=== PATIENT | female | born 1940 | race Caucasian/White ===

== ENCOUNTER 2019-10-28 11:59 | Outpatient (CLI) | payer MEDICARE, BC, SELFPAY ==
--- NOTE | 2019-10-28 12:05 | XR_ITS ---
WS: [id number] Right foot, 3 views, 10/28/2019 Clinical Data: FOOT INJURY RIGHT Comparison: None. Findings: No fractures or dislocations are seen. No bone destruction or erosion is noted. 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 Is calcification adjacent to the medial aspect of the distal first metatarsal. There are also vascular calcification seen adjacent to the distal right tibia. The re are plantar fascial calcifications and a plantar spur seen. XR/XR foot RT min 3V* [id number] Impression: Negative for fracture.
== END 2019-10-28 12:00 | disposition home or self-care (01) ==
LOC: RADWPI 12:04
PROVIDERS: PCP Family Medicine; Visit Provider Family Medicine
DX: S99.921A Unspecified injury of right foot, initial encounter (principal); X58.XXXA Exposure to other specified factors, initial encounter
CPT/HCPCS: 73630

== ENCOUNTER 2019-11-01 15:21 | Emergency (ER) | payer MEDICARE, BC, SELFPAY ==
--- NOTE | 2019-11-01 15:25 | XRR_ITS ---
PROCEDURE INFORMATION: Exam: XR Right Toe(s) Exam date and time: 11/01/2019 3:26 PM Age: 79 years old Clinical indication: Pain; Toes; Right; Additional info: Great toe; Injury TECHNIQUE: Imaging protocol: XR Right toes. Views: Minimum 2 views. COMPARISON: CR XR foot RT min 3V* [id number] 10/28/2019 12:20 PM FINDINGS: Bones/joints: Severe degenerative changes joint and moderate degenerative changes at the 1st tarsal metatarsal joint and 1st interphalangeal joint. Unchanged soft tissue calcifications are noted in the midfoot, adjacent to the 1st MTP joint and 1st interphalangeal joint and may reflect sequela of gout. No dislocation. There is a subtle lucent line in the proximal metaphysis of the 1st proximal phalanx not visualized on the prior exam that may reflect a subtle nondisplaced fracture. This does not extend into the joint. No additional fracture is identified. No osteomyelitis. Soft tissues: There is soft tissue edema of the 1st toe. No foreign body. XR/XR toe RT min 2V [id number] IMPRESSION: There may be a very subtle nondisplaced fracture through the base of the right 1st proximal phalanx. No additional acute bony abnormality.
[2019-11-01 15:50] VITALS: BP 147/86; PULSE 82; RESP 16; TEMP 36.7; O2SAT 96; BMI 31.1
--- NOTE | 2019-11-01 18:04 | W.ED.EXTPRO ---
HPI - Extremity Problem General: Chief complaint: Extremity Injury, Lower Stated complaint: toe injury Time Seen by Provider: 11/01/19 16:14 Source: patient Mode of arrival: ambulatory Limitations: no limitations History of Present Illness: HPI Narrative: 79-year-old female who states she struck her right toe on a door 1 week ago and has had toe pain since then. States pain is the base of her great toe and rates it a 6 out of 10. She states it is worse with walking and improved with rest. Complaint: extremity pain Onset (ago): day(s) Pain Consistency: constant Location: left and right Associated symptoms: Deny chest pain, fever(s) or rash Review of Systems Const: Denies: fever(s), chills, body aches or change in appetite Eyes: Denies: blurry vision or eye discomfort ENMT: Denies: throat pain or dental pain Card: Denies: chest pain Resp: Denies: dyspnea GI: Denies: abdominal pain, nausea, vomiting or diarrhea : Denies: dysuria Musc: Reports: joint pain Skin/Breast: Denies: rash Neuro: Denies: headache(s) Psych: Denies: depression Emmanuel/Lymph: Denies: easy bruising All/Imm: Denies: urticaria PFSH ED PFSH: Medical History GERD (gastroesophageal reflux disease) Hypertension Type 2 diabetes mellitus Family History Other Heart disease Myocardial infarction Social History Smoking and tobacco status: never smoked Alcohol intake: current Alcohol intake frequency: holidays/special occasions only Physical Exam Const: COMMON NORMALS: no acute distress, patient oriented x3 and healthy appearing HENMT: COMMON NORMALS: normocephalic and atraumatic HEAD & SCALP: normocephalic and atraumatic Eye: COMMON NORMALS: Equal, round and reactive pupils present and EOMs intact bilaterally PUPIL: Yes Equal, round and reactive pupils present Neck/C-Spine: COMMON NORMALS: full ROM and supple Chest: COMMONS NORMALS: normal inspection of the chest and normal palpation of entire chest wall Resp: COMMON NORMALS: normal respiratory effort, No retractions, No use of accessory muscles and clear to auscultation bilaterally AUSCULTATION: clear to auscultation bilaterally Cardio: COMMON NORMALS: regular rate, regular rhythm and No murmurs present (Cardio) RATE: regular rate RHYTHM: regular rhythm GI: COMMON NORMALS: Normal to inspection, nondistended, normoactive bowel sounds present, Soft to palpation, non-tender and no masses PALPATION: Yes Soft to palpation Extremity: COMMON NORMALS: normal to inspection and full ROM NARRATIVE EXTREMITY EXAM: tender over right great toe Neuro: COMMON NORMALS: patient oriented x3, moves all extremities and no focal motor deficits Psych: COMMON NORMALS: mental status grossly normal, Normal thought process present and cooperative THOUGHT PROCESS: Normal thought process present Skin: COMMON NORMALS: no rashes or lesions noted and no wounds GENERAL SKIN EXAM: no rashes or lesions noted Course Vital Signs: Vital signs: Vital Signs Temperature 98.0 F 11/01/19 15:50 Pulse Rate 82 11/01/19 15:50 Respiratory Rate 16 11/01/19 15:50 Blood Pressure 147/86 11/01/19 15:50 Pulse Oximetry 96 11/01/19 15:50 MDM - Extremity (Nontraumatic) MDM Narrative: Medical decision making narrative: Patient presents here with great toe contusion. Patient's x-ray shows no fracture. She is well-appearing here and is stable for discharge. She is to ice and follow-up with primary care doctor in 3 to 5 days. Imaging Data^: xr right foot: Attestation: I personally reviewed and interpreted this imaging study as follows: My impression: no acute abnormalty Discharge Plan Discharge Patient Disposition: Home, Self-Care Clinical Impression: Contusion of toe of right foot Qualifiers: Encounter type: initial encounter Toe: great toe Damage to nail status: without damage Qualified Code(s): S90.111A - Contusion of right great toe without damage to nail, initial encounter Condition: Stable Prescriptions: No Action metoprolol succinate 50 mg tablet extended release 24 hr 50 mg PO DAILY RF: 0 metformin 500 mg tablet 500 mg PO BID RF: 0 omeprazole 20 mg capsule,delayed release(DR/EC) 20 mg PO DAILY RF: 0 hydrochlorothiazide 25 mg tablet 25 mg PO DAILY RF: 0 zolpidem 10 mg tablet PO RF: 0 diclofenac sodium [Voltaren] 1 % gel 2 gm TOPICAL BID Qty: 100 RF: 2 Discharge Orders: Discharge Order (Routine); Ordered 11/01/19 Ordered By: Thea Cason Referrals: Bala Sen DO [Primary Care Provider] - Discharge Diet: Advance as tolerated Discharge Activity: Resume usual activity Patient Instructions: Foot Contusion (ED) Coding Level of Care Code ED [place] Management Professor for Tammyg Fwd Exam Comprehensive
[2019-11-01] MEDS: HYDROcodone-acetaminophen 5-325 mg Tablet 1 TAB PO (18:24)
[2019-11-01 18:27] VITALS: BP 166/98; PULSE 80; RESP 18; O2SAT 95
== END 2019-11-01 18:27 | disposition home or self-care (01) ==
PROVIDERS: Emergency Provider Emergency Medicine; PCP Family Medicine
DX: S90.111A Contusion of right great toe without damage to nail, initial encounter (principal); W22.09XA Striking against other stationary object, initial encounter; I10 Essential (primary) hypertension; E11.9 Type 2 diabetes mellitus without complications
CPT/HCPCS: 12345; 73660; 99281; 99283

== ENCOUNTER → 2019-11-12 08:26 | Outpatient (BNVA) | payer MEDICARE, BC, SELFPAY | PROVIDERS: PCP Family Medicine; Referring Provider Family Medicine; Visit Provider Podiatrist Foot & Ankle Surgery | DX: M79.672 Pain in left foot (principal); M77.32 Calcaneal spur, left foot | CPT/HCPCS: 73630 ==

== ENCOUNTER 2020-01-31 07:22 | Outpatient (CLI) | payer MEDICARE, BC, SELFPAY ==
--- NOTE | 2020-01-31 07:32 | NMCV_ITS ---
NM gregor perf SPECT r/s* [id number] Lindsey Pinto Age: 79 Gender: F : 1940 Exam Date: 01/31/2020 08:44 Ordering Phys: Nina Franco MD ([email or web address]) Technologist: ROSETTE Carter Exam Location: [facility] Indications: Dyspnea on exertion STRESS TEST Please see separate stress test report in [facility] for full findings IMAGE PROTOCOL Rest/Stress 1 Lexiscan Day Radiopharmaceutical Dose (mCi) Administration Site Administered by Rest: Tc-99m 10.3 IV ROSETTE Call Sestamibi Stress:Tc-99m 32.5 IV ROSETTE Carter Sestamibi Rest: 31-Jan-2020 60 Discovery 630 Stress: 31-Jan-2020 45 Discovery 630 0.4mg Lexiscan. Images obtained in supine and prone position. SPECT RESULTS Technical Quality: Good Raw Data Analysis: Breast attenuation Image Corrections: No attenuation or motion correction applied Summed Stress Score: 0 Summed Rest Score: 1 Summed Difference Score: 0 PERFUSION FINDINGS SPECT images demonstrate homogeneous tracer distribution throughout the myocardium. FUNCTIONAL RESULTS (calculated via Gated SPECT) Stress Image LV EF (%): 56 Stress EDV (mL):55 TID: 1.09 Stress ESV (mL):24 FUNCTIONAL FINDINGS: The left ventricle is normal in size. Transient Ischemia Dilatation of 1.1. There is normal left ventricular systolic function. The left ventricular ejection fraction is normal with a value of 56%. There is normal left ventricular wall thickening. Normal end diastolic and end systolic volumes. IMPRESSIONS 1. Myocardial perfusion imaging is normal. 2. Overall left ventricular systolic function is normal without regional wall motion abnormalities. 3. The left ventricular ejection fraction is normal with a value of 56%. 4. Scan indicates low risk for cardiac events. Nina Franco MD (Electronically Signed) Final Date: 31 January 2020 21:33 S
--- NOTE | 2020-01-31 07:32 | ECG_ITS ---
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 Interpretive Statements NAME OF STUDY: LEXISCAN SESTAMIBI STRESS TEST INDICATION: BATES PROCEDURE: At the baseline, the blood pressure was 155/99 mm Hg with a heart rate of 62 bpm. The electrocardiogram showed sinus rhythm, normal axis with nonspecific T wave inversion in lead III. The Lexiscan was infused over a period of 20 seconds. A total of 0.4 milligrams of Lexiscan was infused. The stress phase was continued for a total of 5 minutes. Heart rate at the end of the stress phase was 84 bpm with a blood pressure 155/99 mmHg. The EKG at the peak infusion revealed no significant ST-T wave changes. The study was terminated due to protocol completion. Sestamibi was injected 20 seconds after the Lexiscan infusion. Blood pressure at the end of the recovery phase was 152/99 mmHg with a heart rate of 78 beats per minute. CONCLUSION: 1. No significant EKG changes with the LexiScan infusion. 2. No LexiScan induced chest pain or cardiac arrhythmia. 3. Normal blood pressure and heart rate response. 4. Sestamibi/sestamibi perfusion scan pending; see separate report. Electronically Signed On 02-03-2020 12:45:12 CDT by Nina Franco M.D. [id number]
[2020-01-31 07:48] VITALS: BMI 31.4
[2020-01-31] MEDS: regadenoson 0.4 Mg/5 ml Syringe IVP (10:04)
[2020-01-31 10:06] VITALS: BP 152/99; PULSE 78
== END 2020-01-31 07:23 | disposition home or self-care (01) ==
LOC: RAD 07:25
PROVIDERS: PCP Family Medicine; Visit Provider Internal Medicine Cardiovascular Disease
DX: R06.09 Other forms of dyspnea (principal); E11.9 Type 2 diabetes mellitus without complications
CPT/HCPCS: 78452; 93017; A9500; J2785

== ENCOUNTER → 2020-07-22 08:06 | Outpatient (BNVA) | payer MEDICARE, BC, SELFPAY | PROVIDERS: PCP Family Medicine; Visit Provider Specialist | DX: M19.041 Primary osteoarthritis, right hand (principal); M79.641 Pain in right hand | CPT/HCPCS: 73130 ==

== ENCOUNTER 2020-07-22 11:07 | Outpatient (CLI) | payer MEDICARE, BC, SELFPAY | END 2020-07-22 11:08 | disposition home or self-care (01) | LOC: SPT 11:07 | PROVIDERS: PCP Family Medicine; Visit Provider Specialist | DX: Z46.89 Encounter for fitting and adjustment of other specified devices (principal); M19.041 Primary osteoarthritis, right hand | CPT/HCPCS: 97760; L3908 ==

== ENCOUNTER 2020-09-30 09:40 | Inpatient (IN) | payer MEDICARE, BC, SELFPAY ==
[2020-09-30] VITALS (18 sets, daily range): BP systolic 133–218; BP diastolic 87–119; PULSE 62–73; RESP 12–27; TEMP 36.4–36.8; O2SAT 93–99; BMI 32.0
--- NOTE | 2020-09-30 10:26 | ECG_ITS ---
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 f
--- NOTE | 2020-09-30 10:26 | XR_ITS ---
WS: [id number] Portable AP upright chest, 09/30/2020 Clinical Data: cp Comparison: Portable chest, 10/21/2012. Findings: No nodules, masses or effusions are seen. The heart is normal. The pulmonary vascularity is not increased. No pneumonia or pneumothorax is seen. The aortic arch and descending aorta show tortu osity. XR/XR chest 1V portable [id number] Impression: Atherosclerosis.
[2020-09-30] MEDS: aspirin 81 mg Chew Tablet 324 MG PO (11:01)
[2020-09-30] MEDS: nitroglycerin 0.4 mg sublingual Tablet SUBLINGUAL (11:01)
[2020-09-30 11:05] LABS: Basophils % 0.4 %; Eosinophils # 0.1 10^3/uL (0.0-0.8); Eosinophils % 1.3 %; Hematocrit 43.5 % (37.0-47.0); Hemoglobin 14.9 g/dL (11.5-15.3); Lymphocytes # 2.5 10^3/uL (0.8-4.8); Lymphocytes % 26.7 %; Mean Corpuscular HGB Conc 34.3 g/dL (30.0-36.0); Mean Corpuscular Hemoglobin 32.1 pg (28.0-34.0); Mean Corpuscular Volume 93.8 fL (81-99); Mean Platelet Volume 10.7 fL (7.4-10.4); Monocytes # 0.8 10^3/uL (0.2-0.9); Monocytes % 8.3 %; Neutrophils # 5.83 10^3/uL (1.8-7.7); Nucleated Red Blood Cells % 0 %; Platelet Count 247 10^3/cmm (130-400); Red Blood Count 4.64 10^6/uL (4.1-5.3); Red Cell Distribution Width 12.8 % (12.1-15.1); White Blood Count 9.3 10^3/uL (4.0-10.0)
[2020-09-30 11:24] LABS: Troponin(5th) Baseline 9 ng/L (0-10)
[2020-09-30 11:32] LABS: Alanine Aminotransferase 61 U/L (0-33); Albumin Level 4.8 g/dL (3.5-5.2); Alkaline Phosphatase 34 IU/L (35-105); Anion Gap 20.4 (5-19); Aspartate Amino Transferase 46 U/L (0-32); Blood Urea Nitrogen 15 mg/dL (8-23); Calcium 9.4 mg/dL (8.5-10.5); Carbon Dioxide 23 mmol/L (22-29); Chloride 95 mmol/L (98-107); Globulin 3.3 g/dL (1.3-4.6); Glucose 146 mg/dL (65-115); NT Pro B Type Natriuretic Pept 161 pg/mL (0-450); Osmolality Calculated 281 mOsm/kg (285-295); Potassium 4.4 mmol/L (3.5-5.1); Sodium 134 mmol/L (136-145); Total Bilirubin 0.4 mg/dL (0.15-1.2); Total Protein 8.1 g/dL (6.6-8.7)
[2020-09-30 11:35] LABS: Creatinine Clr Calc Pharmacy 55.6412
[2020-09-30 12:24] LABS: D Dimer 0.64 ug/mIFEU (0-0.59)
--- NOTE | 2020-09-30 12:26 | ECG_ITS ---
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1940 Requested By: Shekhar Mancilla Order Number: [id number] Braulio MD: TIANNA BHAKTA Measurements Intervals [place] Rate: 65 P: 37 MN: 216 QRS: -14 QRSD: 98 T: 38 QT: 422 QTc: 439 Interpretive Statements SINUS RHYTHM WITH FIRST DEGREE AV BLOCK INCOMPLETE RIGHT BUNDLE BRANCH BLOCK [90+ ms QRS DURATION, TERMINAL R IN V1/V2, 40+ ms S IN I/aVL/V4/V5/V6] Compared to ECG 01/14/2019 12:20:08 First degree AV block now present Incomplete right bundle-branch block now present Electronically Signed On 09-30-2020 19:24:08 CDT by TIANNA BHAKTA [id number]
--- NOTE | 2020-09-30 12:49 | CT_ITS ---
WS: [id number] CTA scan of the chest with IV contrast. Additional two-dimensional coronal and sagittal reconstructio n and MIP images was performed. 09/30/2020 Clinical Data: cp Comparison: CT chest, 05/07/2019. DLP: 471.[address] scans at [facility] use at least one of these dose optimization techniques: automat ed exposure control; mA and/or kV adjustment per patient size (includes targeted exams where dose is matched to clinical indication); or iterative reconstruction. Findings: The central pulmonary arteries and peripheral pulmonary arteries fill normally with no evidence of in traluminal filling defects. No pulmonary embolic disease is noted. There is a superior segment left lower lobe nodule measuring 1.1 cm seen best on axial image 22 of 52 unchanged. There are other small benign nodules also unchanged. The heart size is normal with no per icardial effusion. There is coronary artery calcification. The pulmonary arterial system and thoracic aorta demonstrate no abnormalities or dilatations. No pneumonia or pneumothorax is seen. There is no axillary or significant mediastinal adenopathy. The thyroid gland shows normal enhancement. The trac hea bifurcates into the bronchi. There is a small hiatal hernia. The upper abdomen shows no abnormalities. The visualized liver, spleen, pancreas, gallbladder, adrena l glands and superior poles of the kidneys are not remarkable. The bones of the thoracic and upper lumbar spine demonstrate osteoarthritis of the vertebral bodies.. CT/CT angio chest PE protcl [id number] Impression: 1. Negative for pulmonary embolic disease. 2. No change in 1.1 cm left lower lobe nodule.
[2020-09-30 12:51] LABS: Add Urine Microscopic? NO; Charge for UA Resulting for Rev
[2020-09-30 13:10] LABS: Urine Appearance Clear (CLEAR); Urine Color Yellow (Yellow)
[2020-09-30 13:13] LABS: Bilirubin Urine Neg (Negative); Blood Urine Neg (Negative); Glucose Urine UA Norm (Normal); Ketones Urine Negative (Negative); Leukocyte Esterase Urine Negative (Negative); Nitrate Urine Negative (Negative); Protein Urine Neg (Negative); Urobilinogen Urine Norm (Negative); pH Urine 6 (5-7)
[2020-09-30] MEDS: iohexol 350 mg/mL 100 mL Btl IV (13:15)
[2020-09-30 13:46] LABS: Troponin 5 2HR 9.55 ng/L (0-10); Troponin 5 2HR Delta 0.55 ABS# (0-10)
--- NOTE | 2020-09-30 13:46 | PC.PHAR ---
pt states she takes care of her own medications-pt states she had a proair inhaler but it has and she hasnt used in a while-pt states she uses voltaren gel prn-pt states her daughter brought her some from [place] but states it doesnt work-pt states she was on metoprolol er 50mg daily (ext med history shows last filled on 06/23/20 90d/s) but states it was increased to 100mg daily-ext med history shows last filled on 07/27/20 30d/s-
[2020-09-30] MEDS: morphine 4 mg/mL SDV 1 mL 2 MG IVP (14:51)
[2020-09-30] MEDS: cloNIDine 0.1 mg Tablet 0.2 MG PO (15:55)
--- NOTE | 2020-09-30 16:06 | ED_ITS ---
HPI - Chest Pain General: Chief Complaint: Chest Pain Stated Complaint: CP Time Seen by Provider: 09/30/20 10:49 History of Present Illness: HPI narrative: The patient is a 80-year-old female with past medical history hypertension, type 2 diabetes who comes to the ER complaining of left-sided chest pain. She has not had this before but says its left and radiates across her chest to the right and around back. She has a family history of cardiac deaths. She says it is worse when she is doing activities but is also hurts whenever she is still. complaint: chest pain Timing of current episode: constant Prior episodes: No Onset: during rest and during exertion Pain location: left chest Severity: moderate Quality: sharp Relieving factors: nothing Associated symptoms: Reports no associated symptoms; Deny abdominal pain, dyspnea or palpitations Review of Systems General: Reports: 10 or more systems reviewed and unremarkable except in HPI and below Const: Denies: fatigue Eyes: Denies: change in vision, blurry vision or eye redness ENMT: Denies: throat pain, swelling of lips/tongue, ear or mastoid pain or nasal congestion Card: Reports: chest pain; Denies: palpitations, irregular heart rhythm, edema, dyspnea on exertion or orthopnea Resp: Denies: dyspnea, productive cough or non-productive cough GI: Denies: abdominal pain, diarrhea or GI cramping : Denies: flank pain, difficulty voiding, urinary frequency or urinary urgency Musc: Denies: neck pain, back pain, extremity pain, joint pain, joint redness, limited range of motion or muscle weakness Skin/Breast: Denies: rash, pruritus, erythema, skin pain or skin tenderness Neuro: Denies: headache(s), numbness in extremities, weakness in extremities, sensory changes, difficulty walking, dizziness, confusion or Slurred speech present Psych: Denies: anxiety or depression Endo: Denies: polyuria All/Imm: Denies: urticaria, throat swelling or tongue swelling PFSH ED PFSH: Medical History (Updated 09/30/20 @ 16:09 by Shekhar Mancilla MD) GERD (gastroesophageal reflux disease) Hypertension Type 2 diabetes mellitus Family History Other Heart disease Myocardial infarction Social History Smoking and tobacco status: never smoked Alcohol intake: current Alcohol intake frequency: holidays/special occasions only Physical Exam Const: COMMON NORMALS: no acute distress, average body habitus, patient oriented x3, no limitations, healthy appearing, alert and well nourished GENERAL APPEARANCE: cooperative, comfortable, well kempt and well developed ORIENTATION/CONSCIOUSNESS: Yes awake, Yes oriented to person, Yes oriented to place and Yes oriented to time HENMT: COMMON NORMALS: normocephalic, external ears normal and Normal external nose present HEAD & SCALP: normal to inspection and normocephalic NOSE: Normal external nose present EXTERNAL EAR: Yes external ears normal MOUTH: Normal oral and palatal mucosa present THROAT: posterior oropharynx normal Eye: COMMON NORMALS: Equal, round and reactive pupils present and EOMs intact bilaterally GENERAL EYE: appearance normal, both eyes and all related structures PUPIL: Yes Equal, round and reactive pupils present Neck/C-Spine: COMMON NORMALS: full ROM, no lymphadenopathy, no meningeal signs and no JVD GENERAL: Yes normal visual inspection Lymph: LYMPHATIC: no lymphadenopathy noted Chest: COMMONS NORMALS: normal inspection of the chest and normal palpation of entire chest wall Resp: COMMON NORMALS: normal respiratory effort, No retractions, No use of accessory muscles, clear to auscultation bilaterally and percussion normal EFFORT & INSPECTION: Yes able to speak in complete sentences AUSCULTATION: clear to auscultation bilaterally PERCUSSION: percussion normal Cardio: COMMON NORMALS: no JVD, regular rate, regular rhythm, S1 normal heart sound present, S2 normal heart sound present and Peripheral pulses 2+ throughout RATE: regular rate RHYTHM: regular rhythm HEART SOUNDS: S1 normal heart sound present and S2 normal heart sound present PERIPHERAL PULSES: Peripheral pulses 2+ throughout GI: COMMON NORMALS: Normal to inspection, nondistended, normoactive bowel sounds present, Soft to palpation, non-tender and no masses INSPECTION: Yes normal to inspection PALPATION: Yes Soft to palpation : COMMON NORMALS: Yes no CVA tenderness BLADDER/KIDNEY EXAM: Yes no CVA tenderness Back/Pelvis: COMMON NORMALS: no CVA tenderness, thoracic and lumbar spine normal to inspection, no thoracic nor lumbar tenderness and thoraco-lumbar ROM normal Extremity: COMMON NORMALS: normal to inspection, full ROM, capillary refill normal, no joint enlargement and no pedal edema GENERAL: Yes normal exam except as noted Neuro: COMMON NORMALS: patient oriented x3, CN's II-XII intact bilaterally, moves all extremities, no focal motor deficits, no sensory deficits noted and gait normal SENSORIUM/ORIENTATION: Yes alert, Yes oriented to person, Yes oriented to place and Yes oriented to time MENINGEAL SIGNS: Yes no meningeal signs Psych: COMMON NORMALS: mental status grossly normal, Normal thought process present, cooperative, normal affect and speech normal APPEARANCE: Yes well kempt ATTITUDE: Yes calm SPEECH: Yes normal speech MOOD & AFFECT: Yes anxious THOUGHT PROCESS: Normal thought process present Skin: COMMON NORMALS: no rashes or lesions noted GENERAL SKIN EXAM: no rashes or lesions noted Course Vital Signs: Vital signs: Vital Signs Temperature 97.5 F L 09/30/20 10:27 Pulse Rate 69 09/30/20 14:58 Respiratory Rate 20 H 09/30/20 14:58 Blood Pressure 192/101 09/30/20 15:55 Pulse Oximetry 96 09/30/20 14:58 MDM - Chest Pain MDM Narrative: Medical decision making narrative: Patient came to the ER complaining of left-sided chest pain. It was not relieved by nitroglycerin. She had normal EKG and troponin x2 however no interventions relieved her chest pain. Moderate suspicion of cardiac disease. Discussed with Dr. Jaimes who will keep observation. Lab Data: Labs: Lab Results 09/30/20 09/30/20 09/30/20 Range/Units 10:56 10:56 10:56 WBC 9.3 (4.0-10.0) 10^3/ uL RBC 4.64 (4.1-5.3) 10^6/u L Hgb 14.9 (11.5-15.3) g/dL Hct 43.5 (37.0-47.0) % MCV 93.8 (81-99) fL MCH 32.1 (28.0-34.0) pg MCHC 34.3 (30.0-36.0) g/dL RDW 12.8 (12.1-15.1) % Plt Count 247 (130-400) 10^3/c mm MPV 10.7 H (7.4-10.4) fL Neut % (Auto) 63.0 % Lymph % (Auto) 26.7 % [place] % (Auto) 8.3 % Eos % (Auto) 1.3 % Baso % (Auto) 0.4 % Neut # (Auto) 5.83 (1.8-7.7) 10^3/u L Lymph # (Auto) 2.5 (0.8-4.8) 10^3/u L [place] # (Auto) 0.8 (0.2-0.9) 10^3/u L Eos # (Auto) 0.1 (0.0-0.8) 10^3/u L Baso # (Auto) 0.0 (0.0-0.1) 10^3/u L Nucleated RBC % (a uto) 0 % Nucleated RBCs # 0.0 /100WBC D-Dimer (0-0.59) ug/mIFE U Sodium 134 L (136-145) mmol/L Potassium 4.4 (3.5-5.1) mmol/L Chloride 95 L (98-107) mmol/L Carbon Dioxide 23 (22-29) mmol/L Anion Gap 20.4 H (5-19) BUN 15 (8-23) mg/dL Creatinine 0.4 L (0.5-0.9) mg/dL GFR Calculation Not Reportable Glucose 146 H (65-115) mg/dL Calculated Osmolal ity 281 L (285-295) mOsm/k g Calcium 9.4 (8.5-10.5) mg/dL Total Bilirubin 0.4 (0.15-1.2) mg/dL AST 46 H (0-32) U/L ALT 61 H (0-33) U/L Alkaline Phosphata se 34 L (35-105) IU/L Troponin T Baselin e 9 (0-10) ng/L Troponin T 120 Min andrew (0-10) ng/L Delta Troponin T (0-10) ABS# NT-Pro-B Natriuret Pep 161 (0-450) pg/mL Total Protein 8.1 (6.6-8.7) g/dL Albumin 4.8 (3.5-5.2) g/dL Globulin 3.3 (1.3-4.6) g/dL Urine Color (Yellow) Urine Appearance (CLEAR) Urine pH (5-7) Ur Specific Gravit y (1.005-1.030) Urine Protein (Negative) Urine Glucose (UA) (Normal) Urine Ketones (Negative) Urine Blood (Negative) Urine Nitrate (Negative) Urine Bilirubin (Negative) Urine Urobilinogen (Negative) mg/dL Ur Leukocyte [place] ase (Negative) 09/30/20 09/30/20 09/30/20 Range/Units 11:47 12:17 12:58 WBC (4.0-10.0) 10^3/ uL RBC (4.1-5.3) 10^6/u L Hgb (11.5-15.3) g/dL Hct (37.0-47.0) % MCV (81-99) fL MCH (28.0-34.0) pg MCHC (30.0-36.0) g/dL RDW (12.1-15.1) % Plt Count (130-400) 10^3/c mm MPV (7.4-10.4) fL Neut % (Auto) % Lymph % (Auto) % [place] % (Auto) % Eos % (Auto) % Baso % (Auto) % Neut # (Auto) (1.8-7.7) 10^3/u L Lymph # (Auto) (0.8-4.8) 10^3/u L [place] # (Auto) (0.2-0.9) 10^3/u L Eos # (Auto) (0.0-0.8) 10^3/u L Baso # (Auto) (0.0-0.1) 10^3/u L Nucleated RBC % (a uto) % Nucleated RBCs # /100WBC D-Dimer 0.64 H (0-0.59) ug/mIFE U Sodium (136-145) mmol/L Potassium (3.5-5.1) mmol/L Chloride (98-107) mmol/L Carbon Dioxide (22-29) mmol/L Anion Gap (5-19) BUN (8-23) mg/dL Creatinine (0.5-0.9) mg/dL GFR Calculation Glucose (65-115) mg/dL Calculated Osmolal ity (285-295) mOsm/k g Calcium (8.5-10.5) mg/dL Total Bilirubin (0.15-1.2) mg/dL AST (0-32) U/L ALT (0-33) U/L Alkaline Phosphata se (35-105) IU/L Troponin T Baselin e (0-10) ng/L Troponin T 120 Min andrew 9.55 (0-10) ng/L Delta Troponin T 0.55 (0-10) ABS# NT-Pro-B Natriuret Pep (0-450) pg/mL Total Protein (6.6-8.7) g/dL Albumin (3.5-5.2) g/dL Globulin (1.3-4.6) g/dL Urine Color Yellow (Yellow) Urine Appearance Clear (CLEAR) Urine pH 6 (5-7) Ur Specific Gravit y 1.010 (1.005-1.030) Urine Protein Neg (Negative) Urine Glucose (UA) Norm (Normal) Urine Ketones Negative (Negative) Urine Blood Neg (Negative) Urine Nitrate Negative (Negative) Urine Bilirubin Neg (Negative) Urine Urobilinogen Norm (Negative) mg/dL Ur Leukocyte [place] ase Negative (Negative) Discharge Plan Discharge Patient Disposition: Placed in Observation Clinical Impression: Chest pain Coding Level of Care Code ED Chief Meteorologist for Karl Mario
[2020-09-30 16:08] LABS: Hepatitis A Antibody IgM Non-Reactive (Nonreactive); Hepatitis B Core IgM Non-Reactive (Nonreactive); Hepatitis B Surface Antigen Non-Reactive (Nonreactive); Hepatitis C Virus Antibody Non-Reactive (Nonreactive)
--- NOTE | 2020-09-30 16:26 | ECG_ITS ---
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1940 Requested By: Shekhar Mancilla Order Number: [id number] Reading MD: TIANNA BHAKTA Measurements Intervals [place] Rate: 69 P: 24 OR: 207 QRS: -21 QRSD: 94 T: 19 QT: 415 QTc: 446 Interpretive Statements SINUS RHYTHM BORDERLINE LEFT AXIS DEVIATION [QRS AXIS < -20] INCOMPLETE RIGHT BUNDLE BRANCH BLOCK [90+ ms QRS DURATION, TERMINAL R IN V1/V2, 40+ ms S IN I/aVL/V4/V5/V6] Compared to ECG 09/30/2020 12:47:21 First degree AV block no longer present Electronically Signed On 09-30-2020 19:23:46 CDT by TIANNA BHAKTA [id number]
--- NOTE | 2020-09-30 17:13 | PM.HP ---
Providers/Chief Complaint Admitting Physician: Nestor Berumen MD Primary Care Provider: Bala Sen DO Chief Complaint: CP History of Present Illness Lindsey Pinto is a 80 year old female with a past medical history of noninsulin-dependent type 2 diabetes mellitus, hypertension, GERD, chronic sinusitis, who presents to [facility] due to complaints of chest pain. Patient tells me that at 3 AM this morning she woke up with severe substernal chest pain, across the anterior chest, sharp-like pain, no nausea, no vomiting, some lightheadedness, some shortness of breath, the pain persisted throughout the morning, intensified in strength so she decided to come to the emergency room, here in the emergency room she reported chest pain, was given aspirin, nitro, morphine, Tylenol without improvement, her initial troponins are within normal limits, EKG shows no acute ST-T wave changes, she does have a significant family history of CAD, hospitalist team was called for admission. Review of Systems Const: Denies: fever(s), chills, fatigue or malaise Eyes: Denies: change in vision or blurry vision ENMT: Denies: nasal congestion Card: Reports: chest pain Resp: Reports: dyspnea; Denies: productive cough, non-productive cough or wheezing GI: Denies: abdominal pain, nausea, vomiting, hematemesis, diarrhea, constipation, hematochezia or melena : Denies: flank pain, dysuria or urinary frequency Musc: Denies: neck pain or back pain Skin/Breast: Denies: rash Neuro: Denies: headache(s), dizziness or vertigo Psych: Denies: anxiety or depression Endo: Denies: polyuria or polydipsia Medications/Allergies Home Medications Medication Instructions Recorded Confirmed Last Taken Type hydrochlorothiazide 25 mg tablet 25 mg PO DAILY@08/01/19 09/30/20 09/30/20 History metformin 500 mg tablet 1,000 mg PO DAILY@08/01/19 09/30/20 09/30/20 07:00 History omeprazole 20 mg capsule,delayed 20 mg PO DAILY PRN 08/01/19 09/30/20 Unknown History release zolpidem 10 mg tablet 10 mg PO BEDTIME 08/01/19 09/30/20 09/29/20 History allopurinol 100 mg tablet 100 mg PO DAILY@07 12/04/19 09/30/20 09/30/20 07:00 History COCK UP SPLINT #1 ea NS 07/22/20 09/30/20 Unknown Rx Voltaren 2 gm TOPICAL QID PRN 09/30/20 09/30/20 Unknown History acetaminophen [Tylenol Extra 1,000 mg PO PRN 09/30/20 09/30/20 09/30/20 07:00 History Strength] 1000 mg alum-mag hydroxide-simeth [Mylanta] See Rx Instructions .ROUTE .COMPLEX 09/30/20 09/30/20 09/30/20 History loratadine [Allergy Relief 10 mg PO DAILY PRN 09/30/20 09/30/20 Unknown History (loratadine)] metoprolol succinate 100 mg PO DAILY@09/30/20 09/30/20 09/30/20 History Allergies Allergy/AdvReac Type Severity Reaction Status Date / Time poliomyelitis vaccine,killed Allergy Unknown Verified 07/22/20 08:09 PFSH Acute PFSH: Medical History GERD (gastroesophageal reflux disease) Hypertension Type 2 diabetes mellitus Surgical History H/O sinus surgery H/O varicose vein stripping Family History Father CAD (coronary artery disease) Mother CAD (coronary artery disease) Other Heart disease Myocardial infarction Social History Smoking and tobacco status: never smoked Alcohol intake: current Alcohol intake frequency: holidays/special occasions only Vitals/I&O/Wt Last Vital Signs Temp 97.5 F L 09/30/20 10:27 Pulse 70 09/30/20 16:15 Resp 12 09/30/20 16:15 BP 183/110 09/30/20 16:15 Pulse Ox 98 09/30/20 16:15 Weight last 48 hrs Weight 79.379 kg Physical Exam Const: COMMON NORMALS: no acute distress and patient oriented x3 GENERAL APPEARANCE: cooperative and comfortable HENMT: COMMON NORMALS: normocephalic HEAD & SCALP: normocephalic Eye: COMMON NORMALS: Equal, round and reactive pupils present and EOMs intact bilaterally GENERAL EYE: appearance normal, both eyes and all related structures PUPIL: Yes Equal, round and reactive pupils present Neck/C-Spine: COMMON NORMALS: full ROM, no lymphadenopathy, no JVD and Thyroid normal THYROID: Thyroid normal Lymph: LYMPHATIC: no lymphadenopathy noted Resp: COMMON NORMALS: normal respiratory effort, No retractions, No use of accessory muscles and clear to auscultation bilaterally AUSCULTATION: clear to auscultation bilaterally Cardio: COMMON NORMALS: no JVD, regular rate, regular rhythm, S1 normal heart sound present, S2 normal heart sound present, No gallops present (Cardio), No clicks present (Cardio) and No murmurs present (Cardio) RATE: regular rate RHYTHM: regular rhythm HEART SOUNDS: S1 normal heart sound present and S2 normal heart sound present GI: COMMON NORMALS: Normal to inspection, nondistended, normoactive bowel sounds present, Soft to palpation, non-tender and No hepatosplenomegaly present PALPATION: Yes Soft to palpation and Yes No hepatosplenomegaly present Extremity: COMMON NORMALS: normal to inspection, full ROM and no pedal edema Neuro: COMMON NORMALS: patient oriented x3, CN's II-XII intact bilaterally, moves all extremities and no focal motor deficits Psych: COMMON NORMALS: mental status grossly normal, Normal thought process present and cooperative THOUGHT PROCESS: Normal thought process present Data : 09/30/20 10:56 09/30/20 10:56 A&P Assessment and plan (1) Chest pain: -Risk factors include family history, hypertension, diabetes -Baseline troponin 9, 121 at 9.55, delta 0.55, BNP 161 -EKG shows sinus rhythm first-degree AV block -Stress test in 01/30/2020 low risk of cardiac events -CT angiogram negative for pulmonary emboli Plan: -Admit to [facility] -Serial troponins, serial EKGs, telemetry monitoring -Aspirin, statin, beta-elizabeth -Nitro for as needed chest pain, she continues to have chest pain will consider starting a nitro drip -GI cocktail -Morphine -ESR, CRP, cardiac echo -Cardiac diet -Low-dose sliding scale -A1c, lipid panel -Cardiology has been consulted -Lovenox for DVT prophylaxis -DNR/DNI Status: Acute (2) Hypertension: Status: Acute (3) Type 2 diabetes mellitus: Status: Acute Qualifiers: Diabetes mellitus nursing home insulin use: without intermission coordinator use Diabetes mellitus complication status: without complication Qualified Code(s): E11.9 - Type 2 diabetes mellitus without complications (4) GERD (gastroesophageal reflux disease): Status: Acute Qualifiers: Esophagitis presence: esophagitis presence not specified Qualified Code(s): K21.9 - Gastro-esophageal reflux disease without esophagitis Attestations Medical Necessity Statement*: Patient requires hospitalization, outpatient with observation, for chest pain Coding Level of Care Code Acute [employer] for [facility] Fwd Diagnoses Chest pain R07.9 Hypertension I10 Type 2 diabetes mellitus E11.9 Diabetes mellitus nursing home insulin use: without intermission coordinator use Diabetes mellitus complication status: without complication GERD (gastroesophageal reflux disease) K21.9 Esophagitis presence: esophagitis presence not specified
[2020-09-30 17:27] LABS: Glucose Point of Care 183 mg/dL (70-110)
[2020-09-30] MEDS: lidocaine 2% viscous 15 ML, aluminum-mag hydrox-simethicon 30 ML, sucralfate oral liq 1 GM PO (18:02)
[2020-09-30] MEDS: enoxaparin 40 mg/0.4 mL Syringe SUBCUT (18:03)
[2020-09-30] MEDS: pantoprazole DR 40 mg Tablet PO (18:03)
[2020-09-30 18:20] LABS: NT Pro B Type Natriuretic Pept 163 pg/mL (0-450)
[2020-09-30 18:22] LABS: Troponin 5 6HR 12.47 ng/L (0-10); Troponin 5 6HR Delta 3.47 ng/L (0-12)
[2020-09-30 18:35] LABS: Erythrocyte Sedimentation Rate 22 mm/hr (0-15)
--- NOTE | 2020-09-30 18:50 | P.CONIM_ITS ---
Providers/Reason For Consult Consulting Physican/Specialty*: Dr HANY Beard/Cardiology Reason for Consult*: Chest pain Attending Physician: Nestor Berumen MD Primary Care Provider: Bala Sen DO History of Present Illness History of Present Illness Lindsey Pinto is a 80 year old female with a history of hypertension, type 2 diabetes and recurrent DVT is present with complaints of chest pain. She is admitted to hospital for further evaluation management. This patient apparently has been in her baseline state of health up until 3:00 this morning when she woke up with chest pain. She described as a pressure-like pain in the lower substernal region, radiating across the chest. Intensity of the pain was moderate to severe. The pain persisted for several hours. She may have some shortness of breath. No nausea vomiting.. No sweating dizziness or syncopal episode. The persistence of the symptoms, she decided to come to the hospital. Patient was given IV morphine and sublingual nitroglycerin in the emergency room. Apparently the symptoms are persisting. Currently the chest pain is mild to moderate. The pain may be slightly getting worse with a deep inspiration. She has no chest wall tenderness. Denies any fever or chills. No cough. No other associated symptoms or radiation of pain. She has a history of chest pain. However she never had a pain similar to this. She had a myocardial perfusion imaging in January 2020. She was found to have no evidence of ischemia at that time. She has no previous history for coronary disease, myocardial infarction or congestive heart failure. Her father had a myocardial infarction in the 50s. Mother of myocardial infarction in the 70s. Grandmother also had myocardial infarction but at the age of 100. One of her aunts also had myocardial infarction in the late 60s. No other relevant family history. She denies any smoking abuse. Occasional alcohol intake. No other substance abuse. She has been compliant with medications. She had DVTs during pregnancies. She underwent vein stripping for varicosities. No history for pulmonary embolism. CTA in the emergency room did not show any evidence of pulmonary embolism. Review of Systems Narrative: CONSTITUTIONAL: No fever or chills. EYES: No blurring of vision or other visual disturbances lately. ENT: No hoarseness of voice, auditory disturbances or sore throat. CARDIOVASCULAR: As mentioned above. RESPIRATORY: No significant cough. GASTROINTESTINAL: No hematemesis or melena. GENITOURINARY: No dysuria or hematuria. INTEGUMENTARY: No skin rashes or history of skin cancer. NEURO: No transient ischemic attacks or amaurosis. PSYCHIATRIC: No history of psychosis or major depression. HEMATOLOGIC: No bleeding disorders or significant anemia. ENDOCRINE: Type 2 diabetes MUSCULOSKELETAL: No recent joint pain or swelling. ALLERGY/IMMUNOLOGY: As mentioned above. Meds/Allergies Home Medications and Allergies Home Medications Medication Instructions Recorded Confirmed Last Taken Type hydrochlorothiazide 25 mg tablet 25 mg PO DAILY@08/01/19 09/30/20 09/30/20 History metformin 500 mg tablet 1,000 mg PO DAILY@08/01/19 09/30/20 09/30/20 07:00 History omeprazole 20 mg capsule,delayed 20 mg PO DAILY PRN 08/01/19 09/30/20 Unknown History release zolpidem 10 mg tablet 10 mg PO BEDTIME 08/01/19 09/30/20 09/29/20 History allopurinol 100 mg tablet 100 mg PO DAILY@12/04/19 09/30/20 09/30/20 07:00 History COCK UP SPLINT #1 ea NS 07/22/20 09/30/20 Unknown Rx Voltaren 2 gm TOPICAL QID PRN 09/30/20 09/30/20 Unknown History acetaminophen [Tylenol Extra 1,000 mg PO PRN 09/30/20 09/30/20 09/30/20 07:00 History Strength] 1000 mg alum-mag hydroxide-simeth [Mylanta] See Rx Instructions .ROUTE .COMPLEX 09/30/20 09/30/20 09/30/20 History loratadine [Allergy Relief 10 mg PO DAILY PRN 09/30/20 09/30/20 Unknown History (loratadine)] metoprolol succinate 100 mg PO DAILY@09/30/20 09/30/20 09/30/20 History Allergies Allergy/AdvReac Type Severity Reaction Status Date / Time poliomyelitis vaccine,killed Allergy Unknown Verified 07/22/20 08:09 Current Medications Current Medications Generic Name Dose Route Start Last Admin Trade Name Freq PRN Reason Stop Dose Admin Enoxaparin Sodium 40 mg 09/30/20 18:00 09/30/20 18:03 Enoxaparin 40 Mg/0.4 Ml Syringe SUBCUT 40 mg Q24H CHAD Administration Insulin Aspart 0 unit 09/30/20 18:00 09/30/20 18:03 Insulin Aspart 100 Unit/1 Ml SUBCUT 4 unit TIDWM CHAD Administration Protocol Pantoprazole Sodium 40 mg 09/30/20 18:00 09/30/20 18:[address] 40 Mg Tablet PO 40 mg BID CHAD Administration PFSH Acute PFSH: Medical History GERD (gastroesophageal reflux disease) Hypertension Type 2 diabetes mellitus Surgical History H/O sinus surgery H/O varicose vein stripping Family History Father CAD (coronary artery disease) Mother CAD (coronary artery disease) Other Heart disease Myocardial infarction Social History Smoking and tobacco status: never smoked Alcohol intake: current Alcohol intake frequency: holidays/special occasions only Vitals/I&O/Wt Last Vital Signs Temp 97.5 F L 09/30/20 10:27 Pulse 70 09/30/20 17:18 Resp 14 09/30/20 17:18 BP 167/99 09/30/20 17:18 Pulse Ox 97 09/30/20 17:18 Weight last 48 hrs Weight 175 lb Physical Exam Narrative: EXAM NARRATIVE: GENERAL: The patient is alert and oriented times three. Not in any acute distress. HEENT: No significant pallor, icterus or lymphadenopathy. The pupils are symmetrical in size. Oral cavity: There are no mucous membrane lesions. Funduscopic examination: The fundus is not visualized NECK: Trachea appears to be central. No masses noted. No JVD or thyromegaly appreciated. No carotid bruit. RESPIRATORY: Chest is symmetrical. No intercostals muscle retraction or any accessory muscle activation. There is no chest wall tenderness. Breath sounds are heard bilaterally. No rales or rhonchi heard. No evidence of any consolidation. BREASTS: Deferred. HEART: The PMI was not palpated. No palpable precordial events. S1 and S2 are normal. No S3 or S4 heard. No pericardial rub or any click heard. ABDOMEN: No vessel pulsations or distention. No tenderness. No organomegaly appreciated. No abdominal bruit. Bowel sounds are normally heard. : Deferred. RECTAL: Deferred. LYMPHATIC: No lymphadenopathy noted in the neck or groin. EXTREMITIES: No edema or cyanosis. No clubbing. The pulses are symmetrical bilaterally. The radial, femoral, dorsalis pedis and the posterior tibial pulses are palpated and found to be in good volume and amplitude. MUSCULOSKELETAL: No acute joint deformities or swelling SKIN: There are no significant scars or skin rash noted. NEUROPSYCHIATRIC: The patient is alert and oriented x3. Appears to be in a good mood. The higher functions are grossly within normal limits. No tremors or rigidity noted. Data Labs: Other Labs: Laboratory Last Values WBC 9.3 10^3/uL (4.0- 10.0) 09/30/20 10:56 RBC 4.64 10^6/uL (4.1 -5.3) 09/30/20 10:56 Hgb 14.9 g/dL (11.5-1 5.3) 09/30/20 10:56 Hct 43.5 % (37.0-47.0 ) 09/30/20 10:56 MCV 93.8 fL (81-99) 09/30/20 10:56 MCH 32.1 pg (28.0-34. 0) 09/30/20 10:56 MCHC 34.3 g/dL (30.0-3 6.0) 09/30/20 10:56 RDW 12.8 % (12.1-15.1 ) 09/30/20 10:56 Plt Count 247 10^3/cmm (130 -400) 09/30/20 10:56 MPV 10.7 fL (7.4-10.4 ) H 09/30/20 10:56 Neut % (Auto) 63.0 % 09/30/20 10:56 Lymph % (Auto) 26.7 % 09/30/20 10:56 [place] % (Auto) 8.3 % 09/30/20 10:56 Eos % (Auto) 1.3 % 09/30/20 10:56 Baso % (Auto) 0.4 % 09/30/20 10:56 Neut # (Auto) 5.83 10^3/uL (1.8 -7.7) 09/30/20 10:56 Lymph # (Auto) 2.5 10^3/uL (0.8- 4.8) 09/30/20 10:56 [place] # (Auto) 0.8 10^3/uL (0.2- 0.9) 09/30/20 10:56 Eos # (Auto) 0.1 10^3/uL (0.0- 0.8) 09/30/20 10:56 Baso # (Auto) 0.0 10^3/uL (0.0- 0.1) 09/30/20 10:56 Nucleated RBC % (a uto) 0 % 09/30/20 10:56 Nucleated RBCs # 0.0 /100WBC 09/30/20 10:56 ESR 22 mm/hr (0-15) H 09/30/20 10:56 D-Dimer 0.64 ug/mIFEU (0- 0.59) H 09/30/20 11:47 Sodium 134 mmol/L (136-1 45) L 09/30/20 10:56 Potassium 4.4 mmol/L (3.5-5 .1) 09/30/20 10:56 Chloride 95 mmol/L (98-107 ) L 09/30/20 10:56 Carbon Dioxide 23 mmol/L (22-29) 09/30/20 10:56 Anion Gap 20.4 (5-19) H 09/30/20 10:56 BUN 15 mg/dL (8-23) 09/30/20 10:56 Creatinine 0.4 mg/dL (0.5-0. 9) L 09/30/20 10:56 GFR Calculation Not Reportable 09/30/20 10:56 Glucose 146 mg/dL (65-115 ) H 09/30/20 10:56 POC Glucose 183 mg/dL (70-110 ) H 09/30/20 17:20 Calculated Osmolal ity 281 mOsm/kg (285- 295) L 09/30/20 10:56 Calcium 9.4 mg/dL (8.5-10 .5) 09/30/20 10:56 Total Bilirubin 0.4 mg/dL (0.15-1 .2) 09/30/20 10:56 AST 46 U/L (0-32) H 09/30/20 10:56 ALT 61 U/L (0-33) H 09/30/20 10:56 Alkaline Phosphata se 34 IU/L (35-105) L 09/30/20 10:56 Troponin T Baselin e 9 ng/L (0-10) 09/30/20 10:56 Troponin T 120 Min [place] 9.55 ng/L (0-10) 09/30/20 12:58 Delta Troponin T 0.55 ABS# (0-10) 09/30/20 12:58 Troponin T Hi Sens 6Hr 12.47 ng/L (0-10) H 09/30/20 17:42 Troponin T Hi Sens 6Hr Delta 3.47 ng/L (0-12) 09/30/20 17:42 NT-Pro-B Natriuret Pep 161 pg/mL (0-450) 09/30/20 10:56 NT-Pro-B Natriuret Pep 163 pg/mL (0-450) 09/30/20 10:56 Total Protein 8.1 g/dL (6.6-8.7 ) 09/30/20 10:56 Albumin 4.8 g/dL (3.5-5.2 ) 09/30/20 10:56 Globulin 3.3 g/dL (1.3-4.6 ) 09/30/20 10:56 Urine Color Yellow (Yellow) 09/30/20 12:17 Urine Appearance Clear (CLEAR) 09/30/20 12:17 Urine pH 6 (5-7) 09/30/20 12:17 Ur Specific Gravit y 1.010 (1.005-1.0 30) 09/30/20 12:17 Urine Protein Neg (Negative) 09/30/20 12:17 Urine Glucose (UA) Norm (Normal) 09/30/20 12:17 Urine Ketones Negative (Negati ve) 09/30/20 12:17 Urine Blood Neg (Negative) 09/30/20 12:17 Urine Nitrate Negative (Negati ve) 09/30/20 12:17 Urine Bilirubin Neg (Negative) 09/30/20 12:17 Urine Urobilinogen Norm mg/dL (Negat deb) 09/30/20 12:17 Ur Leukocyte [place] Negative (Negati ve) 09/30/20 12:17 Hepatitis A IgM Ab Non-reactive (No nreactive) 09/30/20 15:15 Hep Bs Antigen Non-reactive (No nreactive) 09/30/20 15:15 Hep B Core IgM Ab Non-reactive (No nreactive) 09/30/20 15:15 Hepatitis C Antibo dy Non-reactive (No nreactive) 09/30/20 15:15 Imaging^: Myocardial perfusion imaging: My impression: 02/03/20 LEXISCAN CONCLUSION: 1. No significant EKG changes with the LexiScan infusion. 2. No LexiScan induced chest pain or cardiac arrhythmia. 3. Normal blood pressure and heart rate response. 4. Sestamibi/sestamibi perfusion scan pending; see separate report. IMPRESSIONS 1. Myocardial perfusion imaging is normal. 2. Overall left ventricular systolic function is normal without regional wall motion abnormalities. 3. The left ventricular ejection fraction is normal with a value of 56%. 4. Scan indicates low risk for cardiac events. CTA Chest: Radiologist's impression: 1. Negative for pulmonary embolic disease. 2. No change in 1.1 cm left lower lobe nodule. CXR: My impression: Normal cardiac silhouette. No lung infiltrates. No acute pathology. EKG^: EKG 1: My Interpretation: Normal sinus rhythm with a incomplete right bundle branch block pattern. Minimal left axis deviation. No acute ST-T changes. A&P Assessment and plan (1) Chest pain: Chest pain is somewhat atypical. Apparently she has persistent chest pain since 3:00 this morning-for the last more than 12 hours. Her troponin T is neg ative for myocardial injury. EKG is unremarkable. In view of her multiple risk factors, possibility of underlying coronary artery disease causing the pain cannot be excluded. A musculoskeletal etiology/GERD are also considerations. Hemodynamically she seems to be stable. An echocardiogram would be helpful to evaluate the LV function and rule out any other pathology. She has no evidence of any pulmonary embolism or aortic dissection. Status: Acute Qualifiers: Chest pain type: precordial pain Qualified Code(s): R07.2 - Precordial pain (2) Hypertension: Currently of stage II. Will optimize the antihypertensive medications. Status: Acute Qualifiers: Hypertension type: essential hypertension Qualified Code(s): I10 - Essential (primary) hypertension (3) Type 2 diabetes mellitus: Her blood glucose is slightly elevated. We will be closely monitoring her blood glucose levels. Status: Acute Qualifiers: Diabetes mellitus custodial insulin use: without custodial use Diabetes mellitus complication status: without complication Qualified Code(s): E11.9 - Type 2 diabetes mellitus without complications (4) GERD (gastroesophageal reflux disease): Management as per the primary. Protonix would be appropriate. Status: Acute Qualifiers: Esophagitis presence: esophagitis presence not specified Qualified Code(s): K21.9 - Gastro-esophageal reflux disease without esophagitis (5) Dyspnea on exertion: This is somewhat chronic with no significant change in the recent past. Status: Acute Additional A&P Information Serial cardiac enzymes and EKGs would be appropriate. After reviewing the echocardiogram and the patient's clinical progress, further recommendations will be made. She may benefit from a cardiac catheterization, to further evaluate the symptoms. She may be kept on the topical nitrates, beta-elizabeth and aspirin. If the echocardiogram shows any significant wall motion normalities, need to add Lovenox. Based on the clinical progress, further recommendations will be made. Thank for the opportunity to evaluate this patient and make these recommendations Consult Attestations Medical Necessity Statement: Patient requires continued hospital stay for close monitoring and further management Coding Level of Care Code Acute [employer] for [facility] Fwd Diagnoses Chest pain R07.2 Chest pain type: precordial pain Hypertension I10 Hypertension type: essential hypertension Type 2 diabetes mellitus E11.9 Diabetes mellitus oil heaterman insulin use: without oil heaterman use Diabetes mellitus complication status: without complication GERD (gastroesophageal reflux disease) K21.9 Esophagitis presence: esophagitis presence not specified Dyspnea on exertion R06.09
[2020-09-30 18:56] LABS: C Reactive Protein 3.5 mg/L (0.0-4.9); Thyroid Stimulating Hormone 1.43 uIU/mL (0.27-4.20)
--- NOTE | 2020-09-30 19:35 | PC.NURSE ---
Bedside report received from Kristine Vargas RN. Patient is resting in bed watching TV. Patient voices no complaints of pain or other needs at this time. Nurse will continue to monitor.
--- NOTE | 2020-09-30 20:05 | PC.NURSE ---
Dr Beard in to see patient. Patient continues to c/o dull pain to chest 03/21. Received verbal order for Nitrobid 2g topically [id number]. RBVO
[2020-09-30 20:24] LABS: Glucose Point of Care 160 mg/dL (70-110)
[2020-09-30 20:31] LABS: Estmated Average Glucose 154
[2020-09-30] MEDS: atorvastatin 40 mg Tablet PO (20:38)
[2020-09-30] MEDS: nitroglycerin 1 gm/inch oint Pkt 2 INCH TOPICAL (20:38)
[2020-09-30] MEDS: zolpidem 5 mg Tablet 10 MG PO (20:38)
[2020-09-30] MEDS: acetaminophen 500 mg Tablet 1000 MG PO (20:39)
--- NOTE | 2020-09-30 20:39 | USCV_ITS ---
Lindsey Pinto Age: 80 Gender: F : 1940 Exam Date: 09/30/2020 21:16 Ordering Phys: Hank Beard MD ([email or web address]) Technologist: [place] [facility] [place]: SEVERE CHEST PAIN BP: 146 / 88 HR: 68 Rhythm: Sinus Technical Quality: Adequate MEASUREMENTS (Male / Female) Normal Values 2D ECHO LV Diastolic Diameter PLAX 3.8 cm 4.2 - 5.9 / 3.9 - 5.3 cm LV Systolic Diameter PLAX 2.3 cm IVS Diastolic Thickness 0.9 cm 0.6 - 1.0 / 0.6 - 0.9 cm IVS Systolic Thickness 1.2 cm LVPW Diastolic Thickness 1.0 cm 0.6 - 1.0 / 0.6 - 0.9 cm LVPW Systolic Thickness 1.3 cm LVOT Diameter 2.1 cm LV Ejection Fraction 2D Teich 66.4 % LV Ejection Fraction MOD 2C 48.8 % LV Ejection Fraction 2C AL 48.8 % LA Diameter 3.5 cm LA Width 2.7 cm LA Height 3.9 cm RA Width 2.4 cm RA Height 4.1 cm M-MODE LV Diastolic Diameter MM 5.0 cm 4.2 - 5.9 / 3.9 - 5.3 cm LV Systolic Diameter MM 3.6 cm LV Ejection Fraction MM Teich 56.0 % IVS Diastolic Thickness MM 1.0 cm 0.6 - 1.0 / 0.6 - 0.9 cm IVS Systolic Thickness MM 1.4 cm LVPW Diastolic Thickness MM 1.1 cm 0.6 - 1.0 / 0.6 - 0.9 cm LVPW Systolic Thickness MM 1.9 cm RV Diastolic Diameter MM 1.4 cm Aortic Annulus Diameter 3.7 cm LA Ao Ratio MM 1.1 MV E Point Septal Separation 1.5 cm DOPPLER AV Peak Velocity 136.0 cm/s LVOT Peak Velocity 93.0 cm/s AV Area Cont Eq vti 2.4 cm squared AV Area Cont Eq pk 2.3 cm squared MV Area PHT 5.0 cm squared Mitral E to A Ratio 0.6 MV E' Velocity 25.0 cm/s Mitral E to MV E' Ratio 8.2 Mitral E to LV E' Lateral Ratio 7.8 Mitral E to LV E' Septal Ratio 8.7 TR Peak Velocity 97.7 cm/s TR Peak Gradient 3.8 mmHg TV Peak E Velocity 59.0 cm/s Right Atrial Pressure 3.0 mmHg Pulmonary Artery Systolic Pressu 6.8 mmHg PV Peak Velocity 56.0 cm/s FINDINGS Left Ventricle Normal left ventricular size and systolic function, EF 56 %. No regional wall motion abnormalities. Grade I/IV diastolic dysfunction (abnormal relaxation filling pattern), normal to mildly elevated filling pressures. Right Ventricle The right ventricle is normal in size and function. Right Atrium The right atrium is normal in size. Left Atrium The left atrium is normal in size. Mitral Valve Trace mitral valve regurgitation. Aortic Valve No gross abnormalities noted Tricuspid Valve No gross abnormalities noted Pulmonic Valve Pulmonic valve not well visualized. Pericardium Normal pericardium without effusion. Aorta Normal ascending aorta dimension. CONCLUSIONS Normal left ventricular size and systolic function, EF 56 %. No regional wall motion abnormalities. Grade I/IV diastolic dysfunction (abnormal relaxation filling pattern), normal to mildly elevated filling pressures. Normal cardiac chamber sizes Trace mitral valve regurgitation. There is no pericardial effusion. There are no intracardiac masses. There are no prior echocardiogram studies to compare. Dr Hank Beard MD [facility] (Electronically Signed) Final Date: 01 October 2020 00:22 S
--- NOTE | 2020-09-30 22:21 | PC.NURSE ---
Patients O2 levels dropped down to 88% while resting. Applied 2 L NC. Patient is now at 94%. Nurse will continue to monitor.
[2020-10-01] VITALS (9 sets, daily range): BP systolic 112–145; BP diastolic 60–86; PULSE 64–86; RESP 16–21; TEMP 36.7–37.2; O2SAT 90–96
[2020-10-01] MEDS: nitroglycerin 1 gm/inch oint Pkt 2 INCH TOPICAL ×3 (02:51→13:47)
[2020-10-01 05:35] LABS: Basophils % 0.3 %; Eosinophils # 0.1 10^3/uL (0.0-0.8); Eosinophils % 0.8 %; Hematocrit 38.6 % (37.0-47.0); Hemoglobin 13.2 g/dL (11.5-15.3); Lymphocytes # 2.3 10^3/uL (0.8-4.8); Lymphocytes % 18.4 %; Mean Corpuscular HGB Conc 34.2 g/dL (30.0-36.0); Mean Corpuscular Hemoglobin 31.9 pg (28.0-34.0); Mean Corpuscular Volume 93.2 fL (81-99); Monocytes # 1.5 10^3/uL (0.2-0.9); Monocytes % 11.8 %; Neutrophils # 8.37 10^3/uL (1.8-7.7); Neutrophils % 68.5 %; Nucleated Red Blood Cells % 0 %; Platelet Count 215 10^3/cmm (130-400); Red Blood Count 4.14 10^6/uL (4.1-5.3); Red Cell Distribution Width 12.9 % (12.1-15.1); White Blood Count 12.3 10^3/uL (4.0-10.0)
[2020-10-01] MEDS: metoprolol succinate ER (24 HR) 100 mg Tablet PO (05:40)
[2020-10-01] MEDS: hydroCHLOROthiazide 25 mg Tablet PO (05:40)
[2020-10-01] MEDS: acetaminophen 500 mg Tablet 1000 MG PO ×2 (05:41→19:18)
[2020-10-01] MEDS: allopurinol 100 mg Tablet PO (05:41)
[2020-10-01 05:44] LABS: Chol HDL Ratio 4.14 mg/dL (0.0-4.40); Cholesterol 178 mg/dL (0-200); HDL Cholesterol 43 mg/dL (60-100); LDL Cholesterol Calculated 89 mg/dL (50-129); LDL HDL Ratio 2.07 RATIO (0.00-3.22); Triglycerides 232 mg/dL (0-150)
[2020-10-01 05:54] LABS: Alanine Aminotransferase 41 U/L (0-33); Albumin Level 3.8 g/dL (3.5-5.2); Alkaline Phosphatase 29 IU/L (35-105); Aspartate Amino Transferase 29 U/L (0-32); Blood Urea Nitrogen 14 mg/dL (8-23); Calcium 8.7 mg/dL (8.5-10.5); Carbon Dioxide 26 mmol/L (22-29); Chloride 91 mmol/L (98-107); Globulin 2.9 g/dL (1.3-4.6); Glucose 174 mg/dL (65-115); Magnesium 1.5 mg/dL (1.7-2.3); Osmolality Calculated 273 mOsm/kg (285-295); Phosphorus 3.3 mg/dL (2.5-4.5); Sodium 129 mmol/L (136-145); Total Bilirubin 0.9 mg/dL (0.15-1.2); Total Protein 6.7 g/dL (6.6-8.7)
[2020-10-01 05:55] LABS: Creatinine Clr Calc Pharmacy 55.6412
--- NOTE | 2020-10-01 06:44 | PC.NURSE ---
End of shift assessment Patient was awake numerous times during the night. Patient states her chest pain is much better and overall she feels better. Patient voices no complaints of pain this morning and voices no other needs.
[2020-10-01 07:19] LABS: Glucose Point of Care 217 mg/dL (70-110)
[2020-10-01] MEDS: aspirin 81 mg EC Tablet PO (07:48)
[2020-10-01] MEDS: pantoprazole DR 40 mg Tablet PO ×2 (07:48→17:42)
[2020-10-01] MEDS: magnesium sulfate premix 2 GM/50 ML PIGGYBACK IV (09:34)
--- NOTE | 2020-10-01 10:01 | P.PN_ITS ---
Subjective Subjective: Interval history: Patient complained of chest pain that seemed like indigestion across her upper chest and BP markedle elevated on arrival. No CP now. She does complain of intermittent diarrhea and abdominal pains on and off after eating. No prior abdominal imaging. Medications: Reviewed: Yes Medication Review Details: Current Medications Acetaminophen (Acetaminophen 500 Mg Tablet) 1,000 mg PO PRN [facility] Last Admin: 10/01/20 05:41 Dose: 1,000 mg Documented by: Allopurinol (Allopurinol 100 Mg Tablet) 100 mg PO DAILY@07 [facility] Last Admin: 10/01/20 05:41 Dose: 100 mg Documented by: Aspirin (Aspirin 81 Mg Ec Tablet) 81 mg PO DAILY [facility] Last Admin: 10/01/20 07:48 Dose: 81 mg Documented by: Atorvastatin Calcium (Atorvastatin 40 Mg Tablet) 40 mg PO BEDTIME [facility] Last Admin: 09/30/20 20:38 Dose: 40 mg Documented by: Dextrose (Dextrose 50% Syringe 50 Ml) 25 ml IVP ONCE PRN; Protocol PRN Reason: hypoglycemia protocol Dextrose (Dextrose 50% Syringe 50 Ml) 50 ml IVP PRN PRN; Protocol PRN Reason: hypoglycemia protocol Enoxaparin Sodium (Enoxaparin 40 Mg/0.4 Ml Syringe) 40 mg SUBCUT Q24H [facility] Last Admin: 09/30/20 18:03 Dose: 40 mg Documented by: Glucagon (Glucagon 1 Mg/Ml Inj 1 Ml) 1 mg IM ONCE PRN; Protocol PRN Reason: Adult Acute Hypoglycemia Prot. Dextrose (D5w) 500 mls @ 100 mls/hr IV ONCE PRN; Protocol PRN Reason: Adult Acute Hypoglycemia Prot Insulin Aspart (Insulin Aspart 100 Unit/1 Ml) 0 unit SUBCUT TIDWM [facility]; Protocol Last Admin: 10/01/20 07:48 Dose: 4 unit Documented by: Labetalol HCl (Labetalol 5 Mg/Ml Sdv 20ml) 10 mg IVP Q4H PRN PRN Reason: FOR SBP>180 or DBP>100, HOLD IF HR<60 Metoprolol Succinate (Metoprolol Succinate Er (24 Hr) 100 Mg Tablet) 100 mg PO DAILY@07 [facility] Last Admin: 10/01/20 05:40 Dose: 100 mg Documented by: Morphine Sulfate (Morphine 4 Mg/Ml Sdv 1 Ml) 2 mg IVP Q6H PRN PRN Reason: SEVERE PAIN Nitroglycerin (Nitroglycerin 0.4 Mg Sublingual Tablet) 0.4 mg SUBLINGUAL Q5M PRN PRN Reason: CHEST PAIN Nitroglycerin (Nitroglycerin 1 Gm/Inch Oint Pkt) 2 inch TOPICAL Q6H [facility] Last Admin: 10/01/20 07:48 Dose: 2 inch Documented by: Ondansetron HCl (Ondansetron 2 Mg/Ml Sdv 2 Ml) 4 mg IVP Q8H PRN PRN Reason: vomiting, or N/V if npo Pantoprazole Sodium (Pantoprazole Dr 40 Mg Tablet) 40 mg PO BID [facility] Last Admin: 10/01/20 07:48 Dose: 40 mg Documented by: Zolpidem Tartrate (Zolpidem 5 Mg Tablet) 10 mg PO BEDTIME [facility] Last Admin: 09/30/20 20:38 Dose: 10 mg Documented by: Vitals/I&O/Wt Last Vital Signs Temp 98.1 F 10/01/20 07:32 Pulse 64 10/01/20 07:32 Resp 16 10/01/20 07:32 BP 112/60 10/01/20 07:32 Pulse Ox 96 10/01/20 07:32 09/30/20 10/01/20 10/01/20 22:59 06:59 14:59 Intake Total 120 / 120 120 / 120 Balance 120 / 120 120 / 120 Weight last 48 hrs Weight 175 lb Physical Exam Const: COMMON NORMALS: no acute distress, patient oriented x3 and alert GENERAL APPEARANCE: cooperative, comfortable, well kempt and well hydrated HENMT: COMMON NORMALS: normocephalic, atraumatic, hearing grossly normal bilaterally, external ears normal and moist oral mucous membranes HEAD & SCALP: normocephalic and atraumatic FACE & SINUS: normal facial exam; no edema EXTERNAL EAR: Yes external ears normal Eye: COMMON NORMALS: Equal, round and reactive pupils present, EOMs intact bilaterally, conjunctivae normal and no scleral icterus GENERAL EYE: appearance normal, both eyes and all related structures ALIGNMENT: Yes alignment normal EYELID: eyelids normal CONJUNCTIVA: Yes conjunctivae normal SCLERA: sclerae normal PUPIL: Yes Equal, round and reactive pupils present Neck/C-Spine: COMMON NORMALS: supple and no JVD GENERAL: Yes normal visual inspection and No Mass present (neck) CAROTIDS: Yes normal carotid upstroke CERVICAL SPINE: Yes cervical ROM normal Chest: COMMONS NORMALS: normal inspection of the chest and normal palpation of entire chest wall CHEST: Yes Symmetrical chest wall rise, No mass, No tenderness, No Surgical scars present (Chest) and No rash Resp: COMMON NORMALS: clear to auscultation bilaterally AUSCULTATION: clear to auscultation bilaterally, no crackles, no rales, no rhonchi, no wheezes and vesicular breath sounds Cardio: COMMON NORMALS: no JVD, regular rate, regular rhythm, S1 normal heart sound present, S2 normal heart sound present and Peripheral pulses 2+ throughout PALPATION: normal PMI RATE: regular rate RHYTHM: regular rhythm HEART SOUNDS: S1 normal heart sound present, S2 normal heart sound present, no gallops and no murmurs BRUITS: no carotid bruits PERIPHERAL PULSES: Peripheral pulses 2+ throughout, radial pulses present, posterior tibial pulses present and dorsalis pedis present GI: COMMON NORMALS: Soft to palpation AUSCULTATION: Yes normoactive bowel sounds PALPATION: Yes Soft to palpation, No Tenderness to palpation present (GI), No Guarding due to palpation present (GI), No Rigid due to palpation and No Ascites present PERCUSSION: tympanic to percussion Extremity: GENERAL: No calf tenderness, No clubbing, No cyanosis, No edema and No pallor Neuro: COMMON NORMALS: patient oriented x3, CN's II-XII intact bilaterally, no focal motor deficits and gait normal SENSORIUM/ORIENTATION: Yes alert Psych: COMMON NORMALS: Normal thought process present and speech normal APPEARANCE: Yes well kempt SPEECH: Yes normal speech MOOD & AFFECT: Yes euthymic mood THOUGHT PROCESS: Normal thought process present THOUGHT CONTENT: Yes Normal thought content present Skin: HAIR: normal NAILS: normal and no clubbing Data : 10/01/20 04:04 10/01/20 04:04 A&P Assessment and plan (1) Chest pain: Atypical CP, however multiple CAD risk factors and coronary calcification on imaging. -No troponin leak, normal EKG and echo. Normal CTA chest. -Normal MPI in 01/2020. -Plan for abdominal imaging to assess her GB given symptoms and elevated liver enzymes and depending on that decision for [facility]. Status: Acute Qualifiers: Chest pain type: precordial pain Qualified Code(s): R07.2 - Precordial pain (2) Hypertension: well controlled. Status: Acute Qualifiers: Hypertension type: essential hypertension Qualified Code(s): I10 - Essential (primary) hypertension (3) Type 2 diabetes mellitus: Status: Acute Qualifiers: Diabetes mellitus vermin exterminator insulin use: without vermin exterminator use Diabetes mellitus complication status: without complication Qualified Code(s): E11.9 - Type 2 diabetes mellitus without complications (4) GERD (gastroesophageal reflux disease): Status: Acute Qualifiers: Esophagitis presence: esophagitis presence not specified Qualified Code(s): K21.9 - Gastro-esophageal reflux disease without esophagitis Additional A&P Information Family h/o CAD Obesity Osteosrthritis Thank you for allowing me to participate in patient's care. Please feel free to call with questions and concerns Attestations Medical Necessity Statement*: Needs hospital stay for chest pain Coding Level of Care Code Acute Network Internship for g Fwd Diagnoses Chest pain R07.2 Chest pain type: precordial pain Hypertension I10 Hypertension type: essential hypertension Type 2 diabetes mellitus E11.9 Diabetes mellitus chcf insulin use: without chcf use Diabetes mellitus complication status: without complication GERD (gastroesophageal reflux disease) K21.9 Esophagitis presence: esophagitis presence not specified
[2020-10-01 10:53] LABS: Glucose Point of Care 215 mg/dL (70-110)
--- NOTE | 2020-10-01 13:35 | PM.PN ---
Subjective Subjective: Interval history: Patient was examined this morning, no chest pain overnight, she sitting up beside the bed, daughters at bedside, she is quite concerned about a possibility of having coronary artery disease as a source of her chest pain, she is also worried about her elevated liver function, she was told she was hepatitis positive, but have confirmed with her that hepatitis test were negative Medications: Medication Review Details: Current Medications Acetaminophen (Acetaminophen 500 Mg Tablet) 1,000 mg PO PRN [facility] Last Admin: 10/01/20 05:41 Dose: 1,000 mg Documented by: Allopurinol (Allopurinol 100 Mg Tablet) 100 mg PO DAILY@07 [facility] Last Admin: 10/01/20 05:41 Dose: 100 mg Documented by: Aspirin (Aspirin 81 Mg Ec Tablet) 81 mg PO DAILY [facility] Last Admin: 10/01/20 07:48 Dose: 81 mg Documented by: Atorvastatin Calcium (Atorvastatin 40 Mg Tablet) 40 mg PO BEDTIME [facility] Last Admin: 09/30/20 20:38 Dose: 40 mg Documented by: Dextrose (Dextrose 50% Syringe 50 Ml) 25 ml IVP ONCE PRN; Protocol PRN Reason: hypoglycemia protocol Dextrose (Dextrose 50% Syringe 50 Ml) 50 ml IVP PRN PRN; Protocol PRN Reason: hypoglycemia protocol Enoxaparin Sodium (Enoxaparin 40 Mg/0.4 Ml Syringe) 40 mg SUBCUT Q24H [facility] Last Admin: 09/30/20 18:03 Dose: 40 mg Documented by: Glucagon (Glucagon 1 Mg/Ml Inj 1 Ml) 1 mg IM ONCE PRN; Protocol PRN Reason: Adult Acute Hypoglycemia Prot. Dextrose (D5w) 500 mls @ 100 mls/hr IV ONCE PRN; Protocol PRN Reason: Adult Acute Hypoglycemia Prot Insulin Aspart (Insulin Aspart 100 Unit/1 Ml) 0 unit SUBCUT TIDWM [facility]; Protocol Last Admin: 10/01/20 07:48 Dose: 4 unit Documented by: Labetalol HCl (Labetalol 5 Mg/Ml Sdv 20ml) 10 mg IVP Q4H PRN PRN Reason: FOR SBP>180 or DBP>100, HOLD IF HR<60 Metoprolol Succinate (Metoprolol Succinate Er (24 Hr) 100 Mg Tablet) 100 mg PO DAILY@07 [facility] Last Admin: 10/01/20 05:40 Dose: 100 mg Documented by: Morphine Sulfate (Morphine 4 Mg/Ml Sdv 1 Ml) 2 mg IVP Q6H PRN PRN Reason: SEVERE PAIN Nitroglycerin (Nitroglycerin 0.4 Mg Sublingual Tablet) 0.4 mg SUBLINGUAL Q5M PRN PRN Reason: CHEST PAIN Nitroglycerin (Nitroglycerin 1 Gm/Inch Oint Pkt) 2 inch TOPICAL Q6H [facility] Last Admin: 10/01/20 07:48 Dose: 2 inch Documented by: Ondansetron HCl (Ondansetron 2 Mg/Ml Sdv 2 Ml) 4 mg IVP Q8H PRN PRN Reason: vomiting, or N/V if npo Pantoprazole Sodium (Pantoprazole Dr 40 Mg Tablet) 40 mg PO BID [facility] Last Admin: 10/01/20 07:48 Dose: 40 mg Documented by: Zolpidem Tartrate (Zolpidem 5 Mg Tablet) 10 mg PO BEDTIME [facility] Last Admin: 09/30/20 20:38 Dose: 10 mg Documented by: Vitals/I&O/Wt Last Vital Signs Temp 98.7 F 10/01/20 11:14 Pulse 68 10/01/20 11:14 Resp 17 10/01/20 11:14 BP 120/65 10/01/20 11:14 Pulse Ox 91 10/01/20 11:14 09/30/20 10/01/20 10/01/20 22:59 06:59 14:59 Intake Total 120 / 120 170 / 170 Balance 120 / 120 170 / 170 Weight last 48 hrs Weight 79.379 kg Physical Exam Const: COMMON NORMALS: no acute distress and patient oriented x3 HENMT: COMMON NORMALS: normocephalic HEAD & SCALP: normocephalic Neck/C-Spine: COMMON NORMALS: no JVD Resp: COMMON NORMALS: normal respiratory effort, No retractions, No use of accessory muscles and clear to auscultation bilaterally AUSCULTATION: clear to auscultation bilaterally Cardio: COMMON NORMALS: no JVD, regular rate, regular rhythm, S1 normal heart sound present and S2 normal heart sound present RATE: regular rate RHYTHM: regular rhythm HEART SOUNDS: S1 normal heart sound present and S2 normal heart sound present GI: COMMON NORMALS: Normal to inspection, nondistended, normoactive bowel sounds present, Soft to palpation, non-tender, No hepatosplenomegaly present and no masses PALPATION: Yes Soft to palpation and Yes No hepatosplenomegaly present Extremity: COMMON NORMALS: no pedal edema Neuro: COMMON NORMALS: patient oriented x3 Psych: COMMON NORMALS: mental status grossly normal Data : 10/01/20 04:04 10/01/20 04:04 A&P Assessment and plan (1) Chest pain: -Risk factors include family history, hypertension, diabetes -Baseline troponin 9, 121 at 9.55, delta 0.55, BNP 161 -EKG shows sinus rhythm first-degree AV block -Stress test in 01/30/2020 low risk of cardiac events -CT angiogram negative for pulmonary emboli Plan: -Admit to [facility] -Serial troponins, serial EKGs, telemetry monitoring within normal limits -Aspirin, statin, beta-elizabeth -Nitro for as needed chest pain, she continues to have chest pain will consider starting a nitro drip -GI cocktail with minimal improvement of pain -Morphine -ESR, CRP, within normal limits -cardiac echo shows an EF of 56%, grade 1 or 4 diastolic dysfunction -Cardiac diet -Low-dose sliding scale -A1c 7.0, lipid panel triglyceride 232, LDL 89, HDL 43 -TSH within normal limits -We will order right upper quadrant ultrasound -Cardiology has been consulted, plans on possible cardiac cath -Lovenox for DVT prophylaxis -DNR/DNI Status: Acute Qualifiers: Chest pain type: precordial pain Qualified Code(s): R07.2 - Precordial pain (2) Hypertension: Status: Acute Qualifiers: Hypertension type: essential hypertension Qualified Code(s): I10 - Essential (primary) hypertension (3) Type 2 diabetes mellitus: Status: Acute Qualifiers: Diabetes mellitus intermission coordinator insulin use: without prison use Diabetes mellitus complication status: without complication Qualified Code(s): E11.9 - Type 2 diabetes mellitus without complications (4) GERD (gastroesophageal reflux disease): Status: Acute Qualifiers: Esophagitis presence: esophagitis presence not specified Qualified Code(s): K21.9 - Gastro-esophageal reflux disease without esophagitis Attestations Medical Necessity Statement*: Patient requires hospitalization, for chest pain, inpatient, greater than 2 midnights Coding Level of Care Code Acute Weight Training Instructor for [facility] Diagnoses Chest pain R07.2 Chest pain type: precordial pain Hypertension I10 Hypertension type: essential hypertension Type 2 diabetes mellitus E11.9 Diabetes mellitus prison insulin use: without prison use Diabetes mellitus complication status: without complication GERD (gastroesophageal reflux disease) K21.9 Esophagitis presence: esophagitis presence not specified
--- NOTE | 2020-10-01 15:00 | US_ITS ---
WS: [id number] ULTRASOUND ABDOMEN LIMITED CLINICAL INFORMATION: RUQ us, gallbladder, liver COMPARISON: None. FINDINGS: Liver Size: Mild hepatomegaly Craniocaudal length: 16.3 cm. Echogenicity: Normal. Surface nodularity: None. Mass (size and location): None. Bile ducts Intrahepatic ducts: Normal. Common bile duct diameter: 0.5 cm. Gallbladder A few tiny gallstones or sludge Gallbladder wall thickening: Mild gallbladder wall thickening with trace edema Pancreas Normal as visualized. Right kidney: Normal. Hydronephrosis: None. Size: 10.4 cm x 5.3 cm x 4.7 cm. Abdominal aorta and IVC Visualized portions are normal. Ascites: None. US/US abdomen limited [id number] IMPRESSION: 1. Mild hepatomegaly. 2. A few tiny gallstones or sludge with trace gallbladder wall edema. Normal c ommon bile duct. Recommend correlation for cholecystitis symptoms. Gallbladder function can be further evaluated with HIDA scan. 3. No hydronephrosis in right kidney.
[2020-10-01 17:18] LABS: Glucose Point of Care 173 mg/dL (70-110)
[2020-10-01] MEDS: enoxaparin 40 mg/0.4 mL Syringe SUBCUT (17:42)
--- NOTE | 2020-10-01 19:28 | PC.NURSE ---
Report received from Kristine Vargas Patient is resting in bed watching TV. A & O x4. Pt complaint of headache, administered Tylenol. Patient requesting a stool softener. Dr. Faustin notified, awaiting response. No other needs voiced at this time. Nurse will continue to monitor.
--- NOTE | 2020-10-01 19:29 | PC.NURSE ---
Patient c/o no bowel movement for [address] Faustin on the floor and he was informed. Received verbal orders for docusate 100mg PO bid to start tonight and Milk of Magnesia 30ml daily PRN. RBVO
[2020-10-01 20:35] LABS: Glucose Point of Care 195 mg/dL (70-110)
[2020-10-01] MEDS: docusate sodium 100 mg Capsule PO (21:59)
[2020-10-01] MEDS: zolpidem 5 mg Tablet 10 MG PO (21:59)
[2020-10-01] MEDS: atorvastatin 40 mg Tablet PO (21:59)
[2020-10-02] VITALS (8 sets, daily range): BP systolic 124–150; BP diastolic 62–96; PULSE 71–94; RESP 17–26; TEMP 36.6–37.5; O2SAT 91–97
[2020-10-02 04:52] LABS: Basophils % 0.2 %; Eosinophils # 0.2 10^3/uL (0.0-0.8); Eosinophils % 1.5 %; Hematocrit 39.7 % (37.0-47.0); Hemoglobin 13.1 g/dL (11.5-15.3); Lymphocytes # 2.5 10^3/uL (0.8-4.8); Lymphocytes % 20.5 %; Mean Corpuscular Hemoglobin 31.8 pg (28.0-34.0); Mean Corpuscular Volume 96.4 fL (81-99); Monocytes # 1.5 10^3/uL (0.2-0.9); Monocytes % 12.1 %; Neutrophils # 7.96 10^3/uL (1.8-7.7); Neutrophils % 65.1 %; Nucleated Red Blood Cells % 0 %; Platelet Count 189 10^3/cmm (130-400); Red Blood Count 4.12 10^6/uL (4.1-5.3); Red Cell Distribution Width 12.8 % (12.1-15.1); White Blood Count 12.2 10^3/uL (4.0-10.0)
[2020-10-02 05:17] LABS: Alanine Aminotransferase 29 U/L (0-33); Albumin Level 3.6 g/dL (3.5-5.2); Alkaline Phosphatase 31 IU/L (35-105); Anion Gap 14.3 (5-19); Aspartate Amino Transferase 17 U/L (0-32); Blood Urea Nitrogen 14 mg/dL (8-23); Calcium 8.6 mg/dL (8.5-10.5); Carbon Dioxide 25 mmol/L (22-29); Chloride 96 mmol/L (98-107); Creatinine Clr Calc Pharmacy 55.6412; Globulin 3.2 g/dL (1.3-4.6); Glucose 178 mg/dL (65-115); Magnesium 2.1 mg/dL (1.7-2.3); Osmolality Calculated 279 mOsm/kg (285-295); Phosphorus 2.6 mg/dL (2.5-4.5); Potassium 3.3 mmol/L (3.5-5.1); Sodium 132 mmol/L (136-145); Total Bilirubin 0.8 mg/dL (0.15-1.2); Total Protein 6.8 g/dL (6.6-8.7)
[2020-10-02 06:49] LABS: Glucose Point of Care 205 mg/dL (70-110)
[2020-10-02] MEDS: metoprolol succinate ER (24 HR) 100 mg Tablet PO (06:50)
[2020-10-02] MEDS: allopurinol 100 mg Tablet PO (06:50)
[2020-10-02] MEDS: docusate sodium 100 mg Capsule PO ×2 (08:27→18:09)
[2020-10-02] MEDS: pantoprazole DR 40 mg Tablet PO ×2 (08:27→18:09)
[2020-10-02] MEDS: aspirin 81 mg EC Tablet PO (08:27)
--- NOTE | 2020-10-02 08:54 | NM_ITS ---
WS: [id number] NUCLEAR MEDICINE HIDA SCAN CLINICAL INFORMATION: HIDA SCAN TECHNIQUE: Following intravenous administration of 7.9 mCi of technetium 99m mebrofenin, images of th e abdomen were obtained over the course of 120 minutes. FINDINGS: Normal hepatic uptake at 5 minutes. Normal common bile duct activity. Gallbladder is not visualized b y 60 minutes. Imaging extended to 120 minutes with no gallbladder visualization. Findings consistent with cystic duct obstruction and suspicious for cholecystitis. Normal hepatic excretion. NM/NM hepatobiliary wo phar [id number] IMPRESSION: Nonvisualization of the gallbladder by 120 minutes most consistent with cholecy stitis.
[2020-10-02 09:44] LABS: Procalcitonin 0.39 ng/mL (0-0.5)
[2020-10-02 09:54] LABS: C Reactive Protein 162.1 mg/L (0.0-4.9)
[2020-10-02] MEDS: piperacillin-tazobactam 3.375 GM in sodium chloride 0.9% (plus) 50 ML IV ×2 (09:57→16:40)
[2020-10-02 11:34] LABS: Glucose Point of Care 207 mg/dL (70-110)
--- NOTE | 2020-10-02 12:21 | PM.DCS ---
Discharge Providers Date of Admission: 10/01/20 15:40 Date of Discharge: October 04, 2020 Attending Provider at Admission: Nestor Berumen MD Attending Provider at Discharge: Nestor Berumen MD Primary Care Provider: Bala Sen DO Diagnoses at Discharge Discharge Diagnosis (1) Chest pain: Status: Acute Qualifiers: Chest pain type: precordial pain Qualified Code(s): R07.2 - Precordial pain (2) Hypertension: Status: Acute Qualifiers: Hypertension type: essential hypertension Qualified Code(s): I10 - Essential (primary) hypertension (3) Type 2 diabetes mellitus: Status: Acute Qualifiers: Diabetes mellitus complication status: without complication Diabetes mellitus exterminator helper insulin use: without intermediate use Qualified Code(s): E11.9 - Type 2 diabetes mellitus without complications (4) GERD (gastroesophageal reflux disease): Status: Acute Qualifiers: Esophagitis presence: esophagitis presence not specified Qualified Code(s): K21.9 - Gastro-esophageal reflux disease without esophagitis Reason for Visit Reason for Visit: CP Hospital Course Hospital Course Lindsey Pinto is a 80 year old female with a past medical history of noninsulin-dependent type 2 diabetes mellitus, hypertension, GERD, chronic sinusitis, who presents to [facility] due to complaints of chest pain. For chest pain, troponins were within normal limits, EKG sinus rhythm first-degree AV block, did have a negative stress test in January 2020, CT angiogram negative for pulmonary emboli, as inpatient no repeat chest pain events, telemetry monitoring was unremarkable, cardiology was consulted, decision was made not to pursue cardiac catheterization as patient's gallbladder was likely the etiology behind her complaints. Follow-up with cardiology as outpatient. Etiology behind patient's chest discomfort likely related to cholelithiasis. Right upper quadrant ultrasound showed a few tiny gallstones or sludge with trace gallbladder wall edema, normal common bile duct. Her white blood cell count was 12.2, she was afebrile, CRP was 162, she was tender in the right upper quadrant. HIDA scan showed: Evidence of acute cholecystitis, she was started on antibiotic coverage, Dr. Oneil from general surgery performed a laparoscopic cholecystectomy. Patient was discharged on pain control, nausea control antibiotics for the next 5 days with close follow-up with general surgery as outpatient. Recheck liver function 1 to 2 weeks. Physical Exam Const: COMMON NORMALS: no acute distress and patient oriented x3 HENMT: COMMON NORMALS: normocephalic HEAD & SCALP: normocephalic Neck/C-Spine: COMMON NORMALS: no JVD Resp: COMMON NORMALS: normal respiratory effort, No retractions, No use of accessory muscles and clear to auscultation bilaterally AUSCULTATION: clear to auscultation bilaterally Cardio: COMMON NORMALS: no JVD, regular rate, regular rhythm, S1 normal heart sound present and S2 normal heart sound present RATE: regular rate RHYTHM: regular rhythm HEART SOUNDS: S1 normal heart sound present and S2 normal heart sound present GI: COMMON NORMALS: Normal to inspection, nondistended, normoactive bowel sounds present, Soft to palpation, no masses and no bruits PALPATION: Yes Soft to palpation OTHER: Surgical site looks clean and dry Extremity: COMMON NORMALS: capillary refill normal, no clubbing, cyanosis or edema, no calf tenderness and no pedal edema Neuro: COMMON NORMALS: patient oriented x3 Psych: COMMON NORMALS: mental status grossly normal Discharge Data Data Completed and Pending: Completed Studies During Hospitalization Category Date Time Status CT angio chest PE protcl [id number] Stat Cat Scan 09/30/20 12:49 Completed XR chest 1V berna ble [id number] Stat Exams 09/30/20 10:26 Completed CV echo complete* [id number] Stat Ultrasound 09/30/20 20:39 Completed US abdomen limite d [id number] Routine Ultrasound 10/01/20 15:00 Completed Pending at discharge Category Date Time Status Complete Blood Co unt w/Auto AM LABS Lab 10/03/20 04:00 Ordered Comprehensive Met abolic Panel AM LA BS Lab 10/03/20 04:00 Ordered Magnesium AM LABS Lab 10/03/20 04:00 Ordered Phosphorus AM LAB S Lab 10/03/20 04:00 Ordered NM hepatobiliary w phar* [id number] Stat Nuc Med 10/02/20 08:54 Ordered Labs from last 24 hours 10/02/20 10/02/20 10/02/20 11:18 06:45 04:10 WBC RBC Hgb Hct MCV MCH MCHC RDW Plt Count MPV Neut % (Auto) Lymph % (Auto) [place] % (Auto) Eos % (Auto) Baso % (Auto) Neut # (Auto) Lymph # (Auto) [place] # (Auto) Eos # (Auto) Baso # (Auto) Nucleated RBC % (a uto) Nucleated RBCs # Sodium Potassium Chloride Carbon Dioxide Anion Gap BUN Creatinine GFR Calculation Glucose POC Glucose 207 H 205 H Calculated Osmolal ity Calcium Phosphorus Magnesium Total Bilirubin AST ALT Alkaline Phosphata se C-Reactive Protein 162.1 H Total Protein Albumin Globulin Procalcitonin 0.39 10/02/20 10/02/20 10/01/20 04:10 04:10 20:14 WBC 12.2 H RBC 4.12 Hgb 13.1 Hct 39.7 MCV 96.4 MCH 31.8 MCHC 33.0 RDW 12.8 Plt Count 189 MPV 11.0 H Neut % (Auto) 65.1 Lymph % (Auto) 20.5 [place] % (Auto) 12.1 Eos % (Auto) 1.5 Baso % (Auto) 0.2 Neut # (Auto) 7.96 H Lymph # (Auto) 2.5 [place] # (Auto) 1.5 H Eos # (Auto) 0.2 Baso # (Auto) 0.0 Nucleated RBC % (a uto) 0 Nucleated RBCs # 0.0 Sodium 132 L Potassium 3.3 L Chloride 96 L Carbon Dioxide 25 Anion Gap 14.3 BUN 14 Creatinine 0.5 GFR Calculation Not Reportable Glucose 178 H POC Glucose 195 H Calculated Osmolal ity 279 L Calcium 8.6 Phosphorus 2.6 Magnesium 2.1 Total Bilirubin 0.8 AST 17 ALT 29 Alkaline Phosphata se 31 L C-Reactive Protein Total Protein 6.8 Albumin 3.6 Globulin 3.2 Procalcitonin 10/01/20 16:54 WBC RBC Hgb Hct MCV MCH MCHC RDW Plt Count MPV Neut % (Auto) Lymph % (Auto) [place] % (Auto) Eos % (Auto) Baso % (Auto) Neut # (Auto) Lymph # (Auto) [place] # (Auto) Eos # (Auto) Baso # (Auto) Nucleated RBC % (a uto) Nucleated RBCs # Sodium Potassium Chloride Carbon Dioxide Anion Gap BUN Creatinine GFR Calculation Glucose POC Glucose 173 H Calculated Osmolal ity Calcium Phosphorus Magnesium Total Bilirubin AST ALT Alkaline Phosphata se C-Reactive Protein Total Protein Albumin Globulin Procalcitonin Vitals: Last Vital Signs Temp 98.1 F 10/02/20 11:13 Pulse 78 10/02/20 11:13 Resp 26 H 10/02/20 11:13 BP 145/89 10/02/20 11:13 Pulse Ox 91 10/02/20 11:13 Discharge Plan Discharge Patient Disposition: Home Condition: Stable Prescriptions: New hydrocodone-acetaminophen 5-325 mg tablet 1 tab PO Q6H PRN (Reason: pain) Qty: 20 RF: 0 levofloxacin 750 mg tablet 750 mg PO DAILY 5 Days RF: 0 metronidazole [Flagyl] 500 mg tablet 500 mg PO Q8H 5 Days Qty: 15 RF: 0 sennosides-docusate sodium [Senna with Docusate Sodium] 8.6-50 mg tablet 1 tab-cap PO BID Qty: 30 RF: 0 ondansetron HCl [Zofran] 4 mg tablet 4 mg PO Q6H PRN (Reason: nausea and vomiting) Qty: 20 RF: 0 lactulose 20 gram/30 mL Solution 20 g PO BID PRN (Reason: CONSTIPATION (2ND)) Qty: 1200 RF: 0 Continued metformin 500 mg tablet 1,000 mg PO DAILY@07 RF: 0 omeprazole 20 mg capsule,delayed release(DR/EC) 20 mg PO DAILY PRN (Reason: Acid Reflux) RF: 0 hydrochlorothiazide 25 mg tablet 25 mg PO DAILY@07 RF: 0 zolpidem 10 mg tablet 10 mg PO BEDTIME RF: 0 allopurinol 100 mg tablet 100 mg PO DAILY@07 RF: 0 (DME) COCK UP SPLINT See Rx Instructions .Route .MEDSUPPLY Qty: 1 RF: 0 Tylenol Extra Strength 500 mg Tablet 1,000 mg PO PRN RF: 0 Mylanta 200-200-20 mg/5 mL Suspension See Rx Instructions .ROUTE .COMPLEX RF: 0 Allergy Relief (loratadine) 10 mg tablet 10 mg PO DAILY PRN (Reason: Allergy Symptoms) RF: 0 metoprolol succinate 100 mg tablet extended release 24 hr 100 mg PO DAILY@07 RF: 0 Voltaren 1 % gel 2 gm TOPICAL QID PRN (Reason: Pain) RF: 0 Discharge Orders: Discharge Order (Routine); Ordered 10/04/20 Ordered By: Nestor Berumen Referrals: Tl Oneil MD [Physician] - 2 weeks Bala Sen DO [Primary Care Provider] - Discharge Diet: Diabetic Discharge Activity: Resume usual activity Patient Instructions: Opioid Safety Activity Restrictions/Additional Instructions: Diet Advance to normal diet as tolerated, increase fluid intake as much as possible. Activity Avoid strenuous activity for 2 weeks but continue with daily activities including walking as tolerated. Do not lift more than 10 pounds for 2 weeks Return to work/school You can return to work/ school whenever you feel ready as long as you don?t have to lift more than 10 pounds at work. If you have paperwork that needs to be completed for time off from work, please contact my office Driving You can resume driving once you stop using narcotic pain medications, and transition to non-opioid pain medications like Tylenol, Motrin, Aleve, etc. Medications Pain Take opioid pain medications as prescribed and transition to non-opioid pain medications like Tylenol, Motrin, Aleve etc. over the next few days. The goal of the pain medications is to make the pain bearable and not to be pain free since you recently had surgery. Resume all home medications after surgery as per the medication reconciliation list Nausea Nausea is common after surgery, take nausea medications as needed and stay on a liquid bland diet until nausea resolves. Constipation The combination of surgery, anesthesia and pain medications can result in constipation. Take stool softeners as prescribed. If you do not have a bowel movement in 3 days, please take an [id number] laxative like MiraLAX to address the constipation. Shower It is ok to shower but avoid getting the wound wet for 48 hours after surgery. Do not soak in bathtub, swimming pool or hot tub for 2 weeks. Wound care The glue applied to the incision will peel slowly over the next two weeks. The stitches used are dissolvable and will not need to be removed. Do not apply antibiotics or other medications on the incision Problems with the wound You can develop some redness around the incision from bruising after surgery. If there is increasing pain, redness, tenderness around the incision with or without drainage, please contact my office to rule out an infection. Sometimes the skin at the incisions can separate, resulting in reopening of the wound. Cover the wound with antibiotic cream and sterile dressings and contact my office. Contact physician Call the office at [phone] during office hours or go the Emergency Room after hours for - ?Fever to 100.4 or greater ?Shaking chills ?Pain that increases over time ?Redness, warmth, or pus draining from incision sites ?Persistent nausea or inability to take in liquids Discharge Attestations Time Spent in Discharge Care*: less than 30 min Quality Metrics Clinical Quality Measures During this hospital stay, did patient experience: None Coding Level of Care Code Acute g FW PA note Exam Comprehensive Diagnoses Chest pain R07.2 Chest pain type: precordial pain Hypertension I10 Hypertension type: essential hypertension Type 2 diabetes mellitus E11.9 Diabetes mellitus complication status: without complication Diabetes mellitus intermediate insulin use: without exterminator helper use GERD (gastroesophageal reflux disease) K21.9 Esophagitis presence: esophagitis presence not specified
--- NOTE | 2020-10-02 13:00 | PC.NURSE ---
off unit to [facility] for hida scan. ushered via wheelchair.
--- NOTE | 2020-10-02 13:13 | PC.CHAP ---
Pastoral Care Encounter/Spiritual Assessment Type of Contact [] Declined bounty trapper visit [] Patient/Family/Request visit [] Outpatient visit [] Follow-up visit [] Physician referral [] Code/Alert [xx] Routine visit [] Staff referral [] Actively dying [] Patient sleeping [] Family support [] [] Out of room [] Palliative care [] [] Receiving care in room [] Pre-surgical visit [] Trauma [] Long length of stay [] ICU visit [] Other: Relational/Emotional Strength [xx] Patient feels connected with others/family/visitors/staff [] Distress [] Loneliness/isolation [] Abandonment Spirituality of Patient [xx] Person of Shelley [xx] Attends Voodoo of their Shelley [xx] Believes in Prayer [xx] Reads Bible or Buddhism materials [] There are Spiritual issues to be addressed Cottage Supervisor Interventions [xx] Prayer [xx] Active listening [xx] Non-anxious presence [] Spiritual/emotional support [] Crisis/trauma care [] Spiritual counseling [] Bereavement support [] Provided bereavement packet [] Provided Bible/devotional materials [] Provided toy/stuffed animal, coloring book to patient or family member [] Provided Communion [] Anointing/[place] [] Salvation [xx] Completed spiritual assessment [] Other: Impact on Illness or Injury [] Angry [] Fearful [] Anxious [] Often cries [] Exhaustion [] Unable to work [] Unable to attend tenriism [] Unable to walk/stand [] Unable to read [] Unable to drive [] Unable to eat/drink [] Unable to sleep [] Unable to be with family [] Patient intubated [] Other: Summary Patient's daughter from [place] drove in to be present with her parents for several days and was visiting with patient when bounty trapper entered room. (Only one visitor allowed at a time so daughter and patient's spouse are switching off as often as allowed.) Patient stated she entered hospital with chest pains and was initially treated for heart problems until discovered pain was actually caused by gall stones and not heart. Patient stated this news was very welcome and she does not have to worry about her heart. The gall bladder issue, she feels, is not nearly so serious and she is tremendously relieved it can be treated easily. Daughter stated her mother's anxiety was nearly gone. Time spent with patient 7 minutes
--- NOTE | 2020-10-02 15:17 | P.PN_ITS ---
Subjective Subjective: Interval history: Patient complained of chest pain that seemed like indigestion across her upper chest and BP markedly elevated on arrival. No CP now. She does complain of intermittent diarrhea and abdominal pains on and off after eating. She underwent USG abdomen and HIDA scan. Medications: Reviewed: Yes Medication Review Details: Current Medications Acetaminophen (Acetaminophen 500 Mg Tablet) 1,000 mg PO PRN [facility] Last Admin: 10/01/20 05:41 Dose: 1,000 mg Documented by: Allopurinol (Allopurinol 100 Mg Tablet) 100 mg PO DAILY@07 [facility] Last Admin: 10/01/20 05:41 Dose: 100 mg Documented by: Aspirin (Aspirin 81 Mg Ec Tablet) 81 mg PO DAILY [facility] Last Admin: 10/01/20 07:48 Dose: 81 mg Documented by: Atorvastatin Calcium (Atorvastatin 40 Mg Tablet) 40 mg PO BEDTIME [facility] Last Admin: 09/30/20 20:38 Dose: 40 mg Documented by: Dextrose (Dextrose 50% Syringe 50 Ml) 25 ml IVP ONCE PRN; Protocol PRN Reason: hypoglycemia protocol Dextrose (Dextrose 50% Syringe 50 Ml) 50 ml IVP PRN PRN; Protocol PRN Reason: hypoglycemia protocol Enoxaparin Sodium (Enoxaparin 40 Mg/0.4 Ml Syringe) 40 mg SUBCUT Q24H [facility] Last Admin: 09/30/20 18:03 Dose: 40 mg Documented by: Glucagon (Glucagon 1 Mg/Ml Inj 1 Ml) 1 mg IM ONCE PRN; Protocol PRN Reason: Adult Acute Hypoglycemia Prot. Dextrose (D5w) 500 mls @ 100 mls/hr IV ONCE PRN; Protocol PRN Reason: Adult Acute Hypoglycemia Prot Insulin Aspart (Insulin Aspart 100 Unit/1 Ml) 0 unit SUBCUT TIDWM [facility]; Protocol Last Admin: 10/01/20 07:48 Dose: 4 unit Documented by: Labetalol HCl (Labetalol 5 Mg/Ml Sdv 20ml) 10 mg IVP Q4H PRN PRN Reason: FOR SBP>180 or DBP>100, HOLD IF HR<60 Metoprolol Succinate (Metoprolol Succinate Er (24 Hr) 100 Mg Tablet) 100 mg PO DAILY@07 [facility] Last Admin: 10/01/20 05:40 Dose: 100 mg Documented by: Morphine Sulfate (Morphine 4 Mg/Ml Sdv 1 Ml) 2 mg IVP Q6H PRN PRN Reason: SEVERE PAIN Nitroglycerin (Nitroglycerin 0.4 Mg Sublingual Tablet) 0.4 mg SUBLINGUAL Q5M IA N PRN Reason: CHEST PAIN Nitroglycerin (Nitroglycerin 1 Gm/Inch Oint Pkt) 2 inch TOPICAL Q6H [facility] Last Admin: 10/01/20 07:48 Dose: 2 inch Documented by: Ondansetron HCl (Ondansetron 2 Mg/Ml Sdv 2 Ml) 4 mg IVP Q8H PRN PRN Reason: vomiting, or N/V if npo Pantoprazole Sodium (Pantoprazole Dr 40 Mg Tablet) 40 mg PO BID [facility] Last Admin: 10/01/20 07:48 Dose: 40 mg Documented by: Zolpidem Tartrate (Zolpidem 5 Mg Tablet) 10 mg PO BEDTIME [facility] Last Admin: 09/30/20 20:38 Dose: 10 mg Documented by: Vitals/I&O/Wt Last Vital Signs Temp 98.1 F 10/02/20 11:13 Pulse 78 10/02/20 11:13 Resp 26 H 10/02/20 11:13 BP 145/89 10/02/20 11:13 Pulse Ox 91 10/02/20 11:13 10/02/20 10/02/20 10/02/20 06:59 14:59 22:59 Intake Total 394.167 / 394.167 Balance 394.167 / 394.167 Physical Exam Const: COMMON NORMALS: no acute distress, patient oriented x3 and alert GENERAL APPEARANCE: cooperative, comfortable, well kempt and well hydrated HENMT: COMMON NORMALS: normocephalic, atraumatic, hearing grossly normal bilaterally and external ears normal HEAD & SCALP: normocephalic and atraumatic FACE & SINUS: normal facial exam EXTERNAL EAR: Yes external ears normal Eye: COMMON NORMALS: Equal, round and reactive pupils present, EOMs intact bilaterally, conjunctivae normal and no scleral icterus GENERAL EYE: appearance normal, both eyes and all related structures ALIGNMENT: Yes alignment normal CONJUNCTIVA: Yes conjunctivae normal SCLERA: sclerae normal PUPIL: Yes Equal, round and reactive pupils present Neck/C-Spine: COMMON NORMALS: supple and no JVD GENERAL: Yes normal visual inspection and No Mass present (neck) CAROTIDS: Yes normal carotid upstroke Chest: COMMONS NORMALS: normal inspection of the chest and normal palpation of entire chest wall CHEST: Yes Symmetrical chest wall rise, No mass, No tenderness, No Surgical scars present (Chest) and No rash Resp: COMMON NORMALS: clear to auscultation bilaterally AUSCULTATION: clear to auscultation bilaterally, no crackles, no rales, no rhonchi, no wheezes and vesicular breath sounds Cardio: COMMON NORMALS: no JVD, regular rate, regular rhythm, S1 normal heart sound present, S2 normal heart sound present and Peripheral pulses 2+ throughout PALPATION: normal PMI RATE: regular rate RHYTHM: regular rhythm HEART SOUNDS: S1 normal heart sound present, S2 normal heart sound present, no gallops and no murmurs BRUITS: no carotid bruits PERIPHERAL PULSES: Peripheral pulses 2+ throughout, radial pulses present, posterior tibial pulses present and dorsalis pedis present GI: COMMON NORMALS: Soft to palpation AUSCULTATION: Yes normoactive bowel sounds PALPATION: Yes Soft to palpation, No Tenderness to palpation present (GI), No Guarding due to palpation present (GI) and No Rigid due to palpation Extremity: GENERAL: No calf tenderness, No clubbing, No cyanosis, No edema and No pallor Neuro: COMMON NORMALS: patient oriented x3, CN's II-XII intact bilaterally, no focal motor deficits and gait normal SENSORIUM/ORIENTATION: Yes alert Psych: COMMON NORMALS: Normal thought process present and speech normal APPEARANCE: Yes well kempt SPEECH: Yes normal speech MOOD & AFFECT: Yes euthymic mood THOUGHT PROCESS: Normal thought process present THOUGHT CONTENT: Yes Normal thought content present Skin: HAIR: normal NAILS: normal and no clubbing Data : 10/02/20 04:10 10/02/20 04:10 A&P Assessment and plan (1) Chest pain: Atypical CP, however multiple CAD risk factors and coronary calcification on imaging. -No troponin leak, normal EKG and echo. Normal CTA chest. -Normal MPI in 01/2020. No further cardiac testing warranted presently. -Possible cholecystitis on abdominal ultrasound -f/u in 4-6 weeks Status: Acute Qualifiers: Chest pain type: precordial pain Qualified Code(s): R07.2 - Precordial pain (2) Hypertension: well controlled. Status: Acute Qualifiers: Hypertension type: essential hypertension Qualified Code(s): I10 - Essential (primary) hypertension (3) Type 2 diabetes mellitus: Status: Acute Qualifiers: Diabetes mellitus ad terminal makeup operator insulin use: without ad terminal makeup operator use Diabetes mellitus complication status: without complication Qualified Code(s): E11.9 - Type 2 diabetes mellitus without complications (4) GERD (gastroesophageal reflux disease): Status: Acute Qualifiers: Esophagitis presence: esophagitis presence not specified Qualified Code(s): K21.9 - Gastro-esophageal reflux disease without esophagitis Additional A&P Information Family h/o CAD Obesity Osteosrthritis Hypokalemia Hypomagnesemia Thank you for allowing me to participate in patient's care. Please feel free to call with questions and concerns Attestations Medical Necessity Statement*: As per primary team Time Spent in Patient Care: 16 - 35 minutes Coding Level of Care Code Acute Button Bradder for Tammyg Fwd Diagnoses Chest pain R07.2 Chest pain type: precordial pain Hypertension I10 Hypertension type: essential hypertension Type 2 diabetes mellitus E11.9 Diabetes mellitus ad terminal makeup operator insulin use: without penitentiary use Diabetes mellitus complication status: without complication GERD (gastroesophageal reflux disease) K21.9 Esophagitis presence: esophagitis presence not specified
--- NOTE | 2020-10-02 15:29 | PM.PN ---
Subjective Subjective: Interval history: Patient was examined this morning, no chest pain, shortness of breath, she does have some right upper quadrant tenderness to palpation, no nausea, no vomiting, no lightheadedness, no dizziness, she does report chronic diarrhea Medications: Medication Review Details: Current Medications Acetaminophen (Acetaminophen 500 Mg Tablet) 1,000 mg PO PRN [facility] Last Admin: 10/01/20 05:41 Dose: 1,000 mg Documented by: Allopurinol (Allopurinol 100 Mg Tablet) 100 mg PO DAILY@07 [facility] Last Admin: 10/01/20 05:41 Dose: 100 mg Documented by: Aspirin (Aspirin 81 Mg Ec Tablet) 81 mg PO DAILY [facility] Last Admin: 10/01/20 07:48 Dose: 81 mg Documented by: Atorvastatin Calcium (Atorvastatin 40 Mg Tablet) 40 mg PO BEDTIME [facility] Last Admin: 09/30/20 20:38 Dose: 40 mg Documented by: Dextrose (Dextrose 50% Syringe 50 Ml) 25 ml IVP ONCE PRN; Protocol PRN Reason: hypoglycemia protocol Dextrose (Dextrose 50% Syringe 50 Ml) 50 ml IVP PRN PRN; Protocol PRN Reason: hypoglycemia protocol Enoxaparin Sodium (Enoxaparin 40 Mg/0.4 Ml Syringe) 40 mg SUBCUT Q24H [facility] Last Admin: 09/30/20 18:03 Dose: 40 mg Documented by: Glucagon (Glucagon 1 Mg/Ml Inj 1 Ml) 1 mg IM ONCE PRN; Protocol PRN Reason: Adult Acute Hypoglycemia Prot. Dextrose (D5w) 500 mls @ 100 mls/hr IV ONCE PRN; Protocol PRN Reason: Adult Acute Hypoglycemia Prot Insulin Aspart (Insulin Aspart 100 Unit/1 Ml) 0 unit SUBCUT TIDWM [facility]; Protocol Last Admin: 10/01/20 07:48 Dose: 4 unit Documented by: Labetalol HCl (Labetalol 5 Mg/Ml Sdv 20ml) 10 mg IVP Q4H PRN PRN Reason: FOR SBP>180 or DBP>100, HOLD IF HR<60 Metoprolol Succinate (Metoprolol Succinate Er (24 Hr) 100 Mg Tablet) 100 mg PO DAILY@07 [facility] Last Admin: 10/01/20 05:40 Dose: 100 mg Documented by: Morphine Sulfate (Morphine 4 Mg/Ml Sdv 1 Ml) 2 mg IVP Q6H PRN PRN Reason: SEVERE PAIN Nitroglycerin (Nitroglycerin 0.4 Mg Sublingual Tablet) 0.4 mg SUBLINGUAL Q5M PRN PRN Reason: CHEST PAIN Nitroglycerin (Nitroglycerin 1 Gm/Inch Oint Pkt) 2 inch TOPICAL Q6H [facility] Last Admin: 10/01/20 07:48 Dose: 2 inch Documented by: Ondansetron HCl (Ondansetron 2 Mg/Ml Sdv 2 Ml) 4 mg IVP Q8H PRN PRN Reason: vomiting, or N/V if npo Pantoprazole Sodium (Pantoprazole Dr 40 Mg Tablet) 40 mg PO BID [facility] Last Admin: 10/01/20 07:48 Dose: 40 mg Documented by: Zolpidem Tartrate (Zolpidem 5 Mg Tablet) 10 mg PO BEDTIME [facility] Last Admin: 09/30/20 20:38 Dose: 10 mg Documented by: Vitals/I&O/Wt Last Vital Signs Temp 98.1 F 10/02/20 11:13 Pulse 78 10/02/20 11:13 Resp 26 H 10/02/20 11:13 BP 145/89 10/02/20 11:13 Pulse Ox 91 10/02/20 11:13 10/02/20 10/02/20 10/02/20 06:59 14:59 22:59 Intake Total 394.167 / 394.167 Balance 394.167 / 394.167 Physical Exam Const: COMMON NORMALS: no acute distress and patient oriented x3 HENMT: COMMON NORMALS: normocephalic HEAD & SCALP: normocephalic Neck/C-Spine: COMMON NORMALS: no JVD Resp: COMMON NORMALS: normal respiratory effort, No retractions, No use of accessory muscles and clear to auscultation bilaterally AUSCULTATION: clear to auscultation bilaterally Cardio: COMMON NORMALS: no JVD, regular rate, regular rhythm, S1 normal heart sound present and S2 normal heart sound present RATE: regular rate RHYTHM: regular rhythm HEART SOUNDS: S1 normal heart sound present and S2 normal heart sound present GI: COMMON NORMALS: Normal to inspection, nondistended, normoactive bowel sounds present, Soft to palpation, no masses and no bruits PALPATION: Yes Soft to palpation and Yes Tenderness to palpation present (GI) Details: RUQ Extremity: COMMON NORMALS: capillary refill normal, no clubbing, cyanosis or edema, no calf tenderness and no pedal edema Neuro: COMMON NORMALS: patient oriented x3 Psych: COMMON NORMALS: mental status grossly normal Data : 10/02/20 04:10 10/02/20 04:10 A&P Assessment and plan (1) Chest pain: -Risk factors include family history, hypertension, diabetes -Baseline troponin 9, 121 at 9.55, delta 0.55, BNP 161 -EKG shows sinus rhythm first-degree AV block -Stress test in 01/30/2020 low risk of cardiac events -CT angiogram negative for pulmonary emboli Patient chest pain is unlikely to be cardiac in etiology, likely associate with acute cholecystitis Plan: -Admit to CSU -Serial troponins, serial EKGs, telemetry monitoring within normal limits -Aspirin, statin, beta-elizabeth -Nitro for as needed chest pain, she continues to have chest pain will consider starting a nitro drip -GI cocktail with minimal improvement of pain -Morphine -cardiac echo shows an EF of 56%, grade 1 or 4 diastolic dysfunction -Cardiac diet -Low-dose sliding scale -A1c 7.0, lipid panel triglyceride 232, LDL 89, HDL 43 -TSH within normal limits -Right upper quadrant ultrasound shows evidence of acute cholecystitis, -Cardiology has been consulted, plans on possible cardiac cath -Lovenox for DVT prophylaxis -DNR/DNI Status: Acute Qualifiers: Chest pain type: precordial pain Qualified Code(s): R07.2 - Precordial pain (2) Hypertension: Status: Acute Qualifiers: Hypertension type: essential hypertension Qualified Code(s): I10 - Essential (primary) hypertension (3) Type 2 diabetes mellitus: Status: Acute Qualifiers: Diabetes mellitus alf insulin use: without terminal operations manager use Diabetes mellitus complication status: without complication Qualified Code(s): E11.9 - Type 2 diabetes mellitus without complications (4) GERD (gastroesophageal reflux disease): Status: Acute Qualifiers: Esophagitis presence: esophagitis presence not specified Qualified Code(s): K21.9 - Gastro-esophageal reflux disease without esophagitis (5) Acute cholecystitis: White blood cell count 12.2, CRP 162, afebrile, has right upper quadrant tenderness, abdomen ultrasound shows gallbladder wall thickening, with biliary sludge, gallstones, HIDA scan shows evidence of acute cholecystitis Plan: -Keep n.p.o. -IV fluids -Continue Zosyn -Monitor fevers -General surgery on consult -Plan on surgery tomorrow morning Status: Acute Attestations Medical Necessity Statement*: Patient requires hospitalization for chest pain and acute cholecystitis Coding Level of Care Code Acute Shellacker for g Fw Diagnoses Chest pain R07.2 Chest pain type: precordial pain Hypertension I10 Hypertension type: essential hypertension Type 2 diabetes mellitus E11.9 Diabetes mellitus alf insulin use: without terminal operations manager use Diabetes mellitus complication status: without complication GERD (gastroesophageal reflux disease) K21.9 Esophagitis presence: esophagitis presence not specified Acute cholecystitis K81.0
[2020-10-02] MEDS: potassium chloride ER 20 mEq Tablet 40 MEQ PO (16:02)
[2020-10-02] MEDS: sodium chloride 0.9% 1,000 ML 100 ML IV (16:02)
[2020-10-02 16:33] LABS: Glucose Point of Care 190 mg/dL (70-110)
[2020-10-02] MEDS: magnesium hydroxide 30 mL UDC PO (16:39)
--- NOTE | 2020-10-02 18:00 | PM.CONSULT ---
Providers/Reason For Consult Consulting Physican/Specialty*: Acute cholecystitis Reason for Consult*: Nestor Berumen MD Attending Physician: Nestor Berumen MD Primary Care Provider: Bala Sen DO History of Present Illness History of Present Illness Lindsey Pinto is a 80 year old female who presented to the ER with chest pain and was admitted to the hospital for further work-up. Patient states that she had pain in the upper abdomen bilaterally associated with nausea. Patient denies any vomiting. She states that she has had intermittent episodes of pain and loose stools for a long time now. Denies any history of peptic ulcer disease. She has had a prior hysterectomy. Review of Systems General: Reports: 10 or more systems reviewed and unremarkable except in HPI and below Meds/Allergies Home Medications and Allergies Home Medications Medication Instructions Recorded Confirmed Last Taken Type hydrochlorothiazide 25 mg tablet 25 mg PO DAILY@08/01/19 09/30/20 09/30/20 History metformin 500 mg tablet 1,000 mg PO DAILY@08/01/19 09/30/20 09/30/20 07:00 History omeprazole 20 mg capsule,delayed 20 mg PO DAILY PRN 08/01/19 09/30/20 Unknown History release zolpidem 10 mg tablet 10 mg PO BEDTIME 08/01/19 09/30/20 09/29/20 History allopurinol 100 mg tablet 100 mg PO DAILY@12/04/19 09/30/20 09/30/20 07:00 History COCK UP SPLINT #1 ea NS 07/22/20 09/30/20 Unknown Rx Voltaren 2 gm TOPICAL QID PRN 09/30/20 09/30/20 Unknown History acetaminophen [Tylenol Extra 1,000 mg PO PRN 09/30/20 09/30/20 09/30/20 07:00 History Strength] 1000 mg alum-mag hydroxide-simeth [Mylanta] See Rx Instructions .ROUTE .COMPLEX 09/30/20 09/30/20 09/30/20 History loratadine [Allergy Relief 10 mg PO DAILY PRN 09/30/20 09/30/20 Unknown History (loratadine)] metoprolol succinate 100 mg PO DAILY@09/30/20 09/30/20 09/30/20 History Allergies Allergy/AdvReac Type Severity Reaction Status Date / Time poliomyelitis vaccine,killed Allergy Unknown Verified 07/22/20 08:09 Current Medications Current Medications Generic Name Dose Route Start Last Admin Trade Name Willam PRN Reason Stop Dose Admin Allopurinol 100 mg 10/01/20 07:00 10/02/20 06:50 Allopurinol 100 Mg Tablet PO 100 mg DAILY@07 [facility] Administration Aspirin 81 mg 10/01/20 09:00 10/02/20 08:27 Aspirin 81 Mg Ec Tablet PO 81 mg DAILY [facility] Administration Atorvastatin Calcium 40 mg 09/30/20 21:00 10/01/20 21:59 Atorvastatin 40 Mg Tablet PO 40 mg BEDTIME [facility] Administration Docusate Sodium 100 mg 10/01/20 21:00 10/02/20 08:27 Docusate Sodium 100 Mg Capsule PO 100 mg BID [facility] Administration Enoxaparin Sodium 40 mg 09/30/20 18:00 10/01/20 17:42 Enoxaparin 40 Mg/0.4 Ml Syringe SUBCUT 40 mg Q24H [facility] Administration Piperacillin Sod/Tazobactam 50 mls @ 12.5 mls/hr 10/02/20 09:15 10/02/20 16:40 Sod 3.375 gm/ Sodium Chloride IV 12.5 mls/hr Q8H [facility] Administration Protocol As Directed Sodium Chloride 1,000 mls @ 100 mls/hr 10/02/20 15:45 10/02/20 16:02 Sodium Chloride 0.9% IV 100 mls/hr .Q10H [facility] Administration Insulin Aspart 0 unit 09/30/20 18:00 10/02/20 13:52 Insulin Aspart 100 Unit/1 Ml SUBCUT Not Given TIDWM [facility] Protocol Magnesium Hydroxide 30 ml 10/01/20 19:29 10/02/20 16:39 Magnesium Hydroxide 30 Ml Udc PO 30 ml DAILY PRN Administration CONSTIPATION Metoprolol Succinate 100 mg 10/01/20 07:00 10/02/20 06:50 Metoprolol Succinate Er (24 Hr) 100 Mg Tablet PO 100 mg DAILY@07 [facility] Administration Pantoprazole Sodium 40 mg 09/30/20 18:00 10/02/20 08:[address] 40 Mg Tablet PO 40 mg BID [facility] Administration Zolpidem Tartrate 10 mg 09/30/20 21:00 10/01/20 21:59 Zolpidem 5 Mg Tablet PO 10 mg BEDTIME [facility] Administration PFSH Acute PFSH: Medical History DVT (deep venous thrombosis) GERD (gastroesophageal reflux disease) Hypertension Type 2 diabetes mellitus Surgical History H/O sinus surgery H/O varicose vein stripping H/O: hysterectomy Family History Father CAD (coronary artery disease) Mother CAD (coronary artery disease) Other Heart disease Myocardial infarction Social History Smoking and tobacco status: never smoked Alcohol intake: current Alcohol intake frequency: holidays/special occasions only Vitals/I&O/Wt Last Vital Signs Temp 98.1 F 10/02/20 11:13 Pulse 92 10/02/20 15:45 Resp 25 H 10/02/20 15:45 BP 138/96 10/02/20 15:45 Pulse Ox 93 10/02/20 15:45 10/02/20 10/02/20 10/02/20 06:59 14:59 22:59 Intake Total 394.167 / 410.000 15.833 / 410.000 Balance 394.167 / 410.000 15.833 / 410.000 Physical Exam Narrative: EXAM NARRATIVE: HEENT: Normocephalic Eye: Sclera /conjunctiva normal Abdomen: Soft to palpation, Tender right upper quadrant, positive Larson sign Neurological: Oriented to place person and time Skin: Intact, no lesions appreciated on gross exam A&P Assessment and plan (1) Acute cholecystitis: 80-year-old female who presented with chest pain. Her cardiac work-up was negative. Ultrasound gallbladder 10/01/2020: Gallstones/sludge HIDA scan 10/02/2020: Acute cholecystitis Discussed the findings with the patient, plan for laparoscopic possible open cholecystectomy tomorrow N.p.o. after midnight Patient is currently on IV Zosyn Procedure, risks, benefits and alternatives have been discussed with the patient who wishes to proceed with surgery. Status: Acute Coding Level of Care Code Acute Inventory Control Clerk for [facility] Diagnoses Acute cholecystitis K81.0
[2020-10-02] MEDS: atorvastatin 40 mg Tablet PO (20:13)
[2020-10-02] MEDS: zolpidem 5 mg Tablet 10 MG PO (20:13)
[2020-10-02 20:40] LABS: Glucose Point of Care 275 mg/dL (70-110)
[2020-10-02] MEDS: bisacodyl 10 mg Supp PR (21:19)
[2020-10-03] VITALS (17 sets, daily range): BP systolic 102–150; BP diastolic 70–91; PULSE 61–93; RESP 15–28; TEMP 36.4–37.3; O2SAT 92–98
[2020-10-03] MEDS: piperacillin-tazobactam 3.375 GM in sodium chloride 0.9% (plus) 50 ML IV ×2 (03:55→17:43)
[2020-10-03] MEDS: sodium chloride 0.9% 1,000 ML 100 ML IV ×2 (03:56→13:26)
[2020-10-03 04:37] LABS: Basophils % 0.2 %; Eosinophils # 0.1 10^3/uL (0.0-0.8); Eosinophils % 1.3 %; Hemoglobin 12.9 g/dL (11.5-15.3); Lymphocytes # 2.5 10^3/uL (0.8-4.8); Lymphocytes % 25.1 %; Mean Corpuscular HGB Conc 33.9 g/dL (30.0-36.0); Mean Corpuscular Hemoglobin 32.3 pg (28.0-34.0); Mean Platelet Volume 11.3 fL (7.4-10.4); Monocytes # 1.2 10^3/uL (0.2-0.9); Monocytes % 11.9 %; Neutrophils # 6.07 10^3/uL (1.8-7.7); Nucleated Red Blood Cells % 0 %; Platelet Count 195 10^3/cmm (130-400); Red Cell Distribution Width 12.9 % (12.1-15.1)
[2020-10-03 05:01] LABS: Alanine Aminotransferase 167 U/L (0-33); Albumin Level 3.7 g/dL (3.5-5.2); Alkaline Phosphatase 121 IU/L (35-105); Aspartate Amino Transferase 269 U/L (0-32); Blood Urea Nitrogen 9 mg/dL (8-23); Calcium 8.6 mg/dL (8.5-10.5); Carbon Dioxide 26 mmol/L (22-29); Chloride 99 mmol/L (98-107); Creatinine Clr Calc Pharmacy 55.6412; Globulin 3.3 g/dL (1.3-4.6); Glucose 181 mg/dL (65-115); Magnesium 2.1 mg/dL (1.7-2.3); Osmolality Calculated 285 mOsm/kg (285-295); Phosphorus 1.7 mg/dL (2.5-4.5); Sodium 136 mmol/L (136-145); Total Bilirubin 1.7 mg/dL (0.15-1.2)
[2020-10-03] MEDS: allopurinol 100 mg Tablet PO (06:22)
[2020-10-03] MEDS: metoprolol succinate ER (24 HR) 100 mg Tablet PO (06:22)
[2020-10-03 06:54] LABS: Glucose Point of Care 170 mg/dL (70-110)
--- NOTE | 2020-10-03 08:54 | P.PN_ITS ---
Subjective Subjective: Interval history: No issues overnight, patient has mild abdominal pain, no nausea or vomiting Vitals/I&O/Wt Last Vital Signs Temp 99.2 F 10/03/20 04:00 Pulse 71 10/03/20 06:00 Resp 20 H 10/03/20 04:00 BP 125/74 10/03/20 04:00 Pulse Ox 93 10/03/20 04:00 10/02/20 10/03/20 10/03/20 22:59 06:59 14:59 Intake Total 185.833 / 9695.170 3556 / 1580.000 Balance 185.833 / 6106.458 6946 / 1580.000 Physical Exam Narrative: EXAM NARRATIVE: Abdomen: Soft Data : 10/03/20 03:35 10/03/20 03:35 A&P Assessment and plan (1) Acute cholecystitis: 80-year-old female who presented with chest pain. Her cardiac work-up was negative. Ultrasound gallbladder 10/01/2020: Gallstones/sludge HIDA scan 10/02/2020: Acute cholecystitis Plan for laparoscopic possible open cholecystectomy today Patient is currently on IV Zosyn and received a dose at 4 AM Procedure, risks, benefits and alternatives have been discussed with the patient who wishes to proceed with surgery. Status: Acute Attestations Medical Necessity Statement*: Acute cholecystitis Coding Level of Care Code Acute Oxygen Equipment Aide for Karl Mario Diagnoses Acute cholecystitis K81.0
--- NOTE | 2020-10-03 08:56 | PC.NURSE ---
off unit to surgery Pt is ushered via bed. Informed surgery nurse that pt has a past hx with a anesthesia during her outpt ortho surgery 2 yrs ago. pt does not remember what it is. she develop paralysis for 72 hrs?
[2020-10-03] MEDS: sodium chloride 0.9% 1,000 ML 30 ML IV (09:00)
--- NOTE | 2020-10-03 09:09 | SUR.PHASEI ---
pt awake alert talkative with family, DR Prado at bedside and OR nurse Navid, pt up to BR to void,
--- NOTE | 2020-10-03 09:13 | ANES.PREANE2 ---
Pre-Anesthetic Assessment Pre-Anesthetic Assessment: Height/Weight: Height 1.57 m Weight 79.379 kg Temp Pulse Resp BP Pulse Ox 98.7 F 70 18 150/91 95 10/03/20 08:57 10/03/20 08:57 10/03/20 08:57 10/03/20 08:57 10/03/20 08:57 Preop Diagnosis: acute cholecystitis Proposed Procedure: Operation Date: 10/03/20 09:30 Proposed Procedures p Laparoscopic Cholecystectomy(Not Applicable) - Tl Oneil MD Was Beta Ml taken within 24 hours: Yes Was Clonidine taken within 24 hours: N/A Last intake: Intake Last Liquid Date 10/02/20 Last Liquid Time 10:00 Last Solid Date 10/02/20 Last Solid Time 07:30 Social: Social History: No alcohol and No tobacco Exam: Pre-Anes Outpt Exam: alert, oriented x 3, clear to auscultation bilaterally and regular rate & rhythm Airway: Submandibular: WNL Cervical ROM: WNL MP: 2 Dentition: Full CV/HEM: CV/HEM: HTN Metabolic: Metabolic: DM and Morbid obesity Musc/skel: Musc/skel: OA/DJD Anesthetic Plan: ASA status: 3 Anesthesia: General Risk of > 500 ml blood loss (7ml/kg in children): No Meds/Allergies Current Medications: Current Medications Generic Name Dose Route Start Last Admin Trade Name Freq PRN Reason Stop Dose Admin Allopurinol 100 mg 10/01/20 07:00 10/03/20 06:22 Allopurinol 100 Mg Tablet PO 100 mg DAILY@07 [facility] Administration Aspirin 81 mg 10/01/20 09:00 10/02/20 08:27 Aspirin 81 Mg Ec Tablet PO 81 mg DAILY [facility] Administration Atorvastatin Calci um 40 mg 09/30/20 21:00 10/02/20 20:13 Atorvastatin 40 Mg Tablet PO 40 mg BEDTIME [facility] Administration Docusate Sodium 100 mg 10/01/20 21:00 10/02/20 18:09 Docusate Sodium 100 Mg Capsule PO 100 mg BID [facility] Administration Enoxaparin Sodium 40 mg 09/30/20 18:00 10/02/20 18:13 Enoxaparin 40 Mg /0.4 Ml Syringe SUBCUT Not Given Q24H [facility] Piperacillin Sod/T azobactam 50 mls @ 12.5 mls /hr 10/02/20 09:15 10/03/20 03:55 Sod 3.375 gm/ So dium Chloride IV 12.5 mls/hr Q8H [facility] Administration Protocol As Directed Sodium Chloride 1,000 mls @ 100 m ls/hr 10/02/20 15:45 10/03/20 03:56 Sodium Chloride 0.9% IV 100 mls/hr .Q10H [facility] Administration Insulin Aspart 0 unit 09/30/20 18:00 10/02/20 18:09 Insulin Aspart 1 00 Unit/1 Ml SUBCUT 4 unit TIDWM [facility] Administration Protocol Magnesium Hydroxid e 30 ml 10/01/20 19:29 10/02/20 16:39 Magnesium Hydrox santino 30 Ml Udc PO 30 ml DAILY PRN Administration CONSTIPATION Metoprolol Succina te 100 mg 10/01/20 07:00 10/03/20 06:22 Metoprolol Succi lambert Er (24 Hr) 10 0 Mg Tablet PO 100 mg DAILY@07 [facility] Administration Pantoprazole Sodiu m 40 mg 09/30/20 18:00 10/02/20 18:[address] 40 Mg Tablet PO 40 mg BID [facility] Administration Zolpidem Tartrate 10 mg 09/30/20 21:00 10/02/20 20:13 Zolpidem 5 Mg Ta blet PO 10 mg BEDTIME [facility] Administration PFSH Anesthesia PFSH: Medical History DVT (deep venous thrombosis) GERD (gastroesophageal reflux disease) Hypertension Type 2 diabetes mellitus Surgical History H/O sinus surgery H/O varicose vein stripping H/O: hysterectomy Family History Father CAD (coronary artery disease) Mother CAD (coronary artery disease) Other Heart disease Myocardial infarction Social History Smoking and tobacco status: never smoked Alcohol intake: current Alcohol intake frequency: holidays/special occasions only Data Anesthesia CBC & Chem 7: 10/03/20 03:35 10/03/20 03:35 Other Labs: Laboratory Results - last 48 hr 10/01/20 10/01/20 10/01/20 10:44 16:54 20:14 WBC RBC Hgb Hct MCV MCH MCHC RDW Plt Count MPV Neut % (Auto) Lymph % (Auto) [place] % (Auto) Eos % (Auto) Baso % (Auto) Neut # (Auto) Lymph # (Auto) [place] # (Auto) Eos # (Auto) Baso # (Auto) Nucleated RBC % (auto) Nucleated RBCs # Sodium Potassium Chloride Carbon Dioxide Anion Gap BUN Creatinine GFR Calculation Glucose POC Glucose 215 H 173 H 195 H Calculated Osmolality Calcium Phosphorus Magnesium Total Bilirubin AST ALT Alkaline Phosphatase C-Reactive Protein Total Protein Albumin Globulin Procalcitonin 10/02/20 10/02/20 10/02/20 04:10 04:10 04:10 WBC 12.2 H RBC 4.12 Hgb 13.1 Hct 39.7 MCV 96.4 MCH 31.8 MCHC 33.0 RDW 12.8 Plt Count 189 MPV 11.0 H Neut % (Auto) 65.1 Lymph % (Auto) 20.5 [place] % (Auto) 12.1 Eos % (Auto) 1.5 Baso % (Auto) 0.2 Neut # (Auto) 7.96 H Lymph # (Auto) 2.5 [place] # (Auto) 1.5 H Eos # (Auto) 0.2 Baso # (Auto) 0.0 Nucleated RBC % (auto) 0 Nucleated RBCs # 0.0 Sodium 132 L Potassium 3.3 L Chloride 96 L Carbon Dioxide 25 Anion Gap 14.3 BUN 14 Creatinine 0.5 GFR Calculation Not Reportable Glucose 178 H POC Glucose Calculated Osmolality 279 L Calcium 8.6 Phosphorus 2.6 Magnesium 2.1 Total Bilirubin 0.8 AST 17 ALT 29 Alkaline Phosphatase 31 L C-Reactive Protein 162.1 H Total Protein 6.8 Albumin 3.6 Globulin 3.2 Procalcitonin 0.39 10/02/20 10/02/20 10/02/20 06:45 11:18 16:10 WBC RBC Hgb Hct MCV MCH MCHC RDW Plt Count MPV Neut % (Auto) Lymph % (Auto) [place] % (Auto) Eos % (Auto) Baso % (Auto) Neut # (Auto) Lymph # (Auto) [place] # (Auto) Eos # (Auto) Baso # (Auto) Nucleated RBC % (auto) Nucleated RBCs # Sodium Potassium Chloride Carbon Dioxide Anion Gap BUN Creatinine GFR Calculation Glucose POC Glucose 205 H 207 H 190 H Calculated Osmolality Calcium Phosphorus Magnesium Total Bilirubin AST ALT Alkaline Phosphatase C-Reactive Protein Total Protein Albumin Globulin Procalcitonin 10/02/20 10/03/20 10/03/20 20:32 03:35 03:35 WBC 10.0 RBC 4.00 L Hgb 12.9 Hct 38.0 MCV 95.0 MCH 32.3 MCHC 33.9 RDW 12.9 Plt Count 195 MPV 11.3 H Neut % (Auto) 61.0 Lymph % (Auto) 25.1 [place] % (Auto) 11.9 Eos % (Auto) 1.3 Baso % (Auto) 0.2 Neut # (Auto) 6.07 Lymph # (Auto) 2.5 [place] # (Auto) 1.2 H Eos # (Auto) 0.1 Baso # (Auto) 0.0 Nucleated RBC % (auto) 0 Nucleated RBCs # 0.0 Sodium 136 Potassium 4.0 Chloride 99 Carbon Dioxide 26 Anion Gap 15.0 BUN 9 Creatinine 0.5 GFR Calculation Not Reportable Glucose 181 H POC Glucose 275 H Calculated Osmolality 285 Calcium 8.6 Phosphorus 1.7 L Magnesium 2.1 Total Bilirubin 1.7 H AST 269 H ALT 167 H Alkaline Phosphatase 121 H C-Reactive Protein Total Protein 7.0 Albumin 3.7 Globulin 3.3 Procalcitonin 10/03/20 06:40 WBC RBC Hgb Hct MCV MCH MCHC RDW Plt Count MPV Neut % (Auto) Lymph % (Auto) [place] % (Auto) Eos % (Auto) Baso % (Auto) Neut # (Auto) Lymph # (Auto) [place] # (Auto) Eos # (Auto) Baso # (Auto) Nucleated RBC % (auto) Nucleated RBCs # Sodium Potassium Chloride Carbon Dioxide Anion Gap BUN Creatinine GFR Calculation Glucose POC Glucose 170 H Calculated Osmolality Calcium Phosphorus Magnesium Total Bilirubin AST ALT Alkaline Phosphatase C-Reactive Protein Total Protein Albumin Globulin Procalcitonin Cardiac Studies: No Data to Display
--- NOTE | 2020-10-03 10:58 | PM.OP ---
Operative Report Date of procedure: October 03, 2020 Pre-op Diagnosis: acute cholecystitis Post-op Diagnosis: Acute calculus cholecystitis Procedure Done: Laparoscopic cholecystectomy Specimens removed/disposition: Gallbladder Surgeon: Tl Oneil Anesthesia: General Condition: stable Disposition: PACU Procedure: The patient was taken to the operating room and was intubated under general anesthesia. After the antibiotic had been administered, the abdomen was prepped and draped in a sterile manner. Using a #15 blade, a 1 centimeter infraumbilical curvilinear incision was made and using an open Tila technique the peritoneal cavity was entered. A 10 millimeter port was placed and 15 millimeters of pneumoperitoneum was created. A 10 millimeter, 30 degrees scope was then introduced. Three 5 millimeter ports were placed in the epigastric, midclavicular and the anterior axillary line two fingerbreadths below the costal margin on the right side under the direct visualization. The gallbladder wall was inflamed and thickened and distended and was decompressed using an aspiration needle. Ratcheted forceps were introduced into the lateral most port and was used to retract the fundus of the gallbladder cephalad and using forceps the infundibulum of the gallbladder was retracted laterally. Using L-hook cautery the peritoneum overlying the Calot's triangle was opened medially and laterally until the cystic duct and the cystic artery were skeletonized. Dissection was carried along the body of the gallbladder and after ensuring critical view of safety, 4 clips applied on the cystic duct and cut leaving, 3 clips on the remaining portion of the duct . The anterior and posterior branch of the cystic artery was divided with electrocautery. While dissection of the body of the gallbladder there was an opening made in the body resulting in spillage of stones. The rest of the gallbladder was dissected off the liver using L-hook cautery. There was no bleeding or bile leaking noted from the gallbladder fossa and the clips appeared to be in place. An EndoCatch bag was introduced to remove the gallbladder as well as stones. The gallbladder fossa was irrigated with saline and remaining residual small stones were suctioned out. All the ports were removed under direct visualization and there was no bleeding noted from the port sites. The fascia of the umbilicus was closed using [id number] 0 Vicryl sutures and the subcutaneous tissue was approximated using 3-0 Vicryl sutures. The skin at all four ports were closed using 4-0 Monocryl and Dermabond. A total of 10 millimeters of 0.5% Marcaine was infiltrated around the port sites. The patient was stable throughout the procedure.
--- NOTE | 2020-10-03 11:08 | SUR.PHASEI ---
PT AWAKE ALERT ON RA TRIAL PT REQUESTS ICE CHIPS , PT TOLERATES WELL, VSS ABD SOFT WITH [address] IN [address].
[2020-10-03] MEDS: HYDROcodone-acetaminophen 5-325 mg Tablet 1 TAB PO (12:01)
[2020-10-03] MEDS: pantoprazole DR 40 mg Tablet PO ×2 (12:08→17:44)
[2020-10-03 12:12] LABS: Glucose Point of Care 247 mg/dL (70-110)
--- NOTE | 2020-10-03 12:31 | ANE.PACU2 ---
Inpatient post-anesthesia follow up: Airway intact: Yes Vital signs: Temperature 97.6 F Pulse Rate [Right Radial] 68 Pulse Rate 61 Respiratory Rate 20 Blood Pressure [Ri ght Arm] 180/101 Blood Pressure 136/75 Pulse Oximetry 96 Oxygen Delivery Me thod Nasal Cannula Oxygen Flow Rate 3 Fraction of Inspir ed Oxygen Hydration adequate: Yes Nausea and vomiting: No Pain level: 2 Mental status: Baseline
--- NOTE | 2020-10-03 13:11 | DCPLANNER ---
back from surgery Pt is awake, mildy sleepy post anesthesia. Tenderness and soreness on right abdominal area,pain level is 8/10 per scale. Incision with glue noted on belly button and right upper abdominal area. Hydrocodone given as ordered. Family at bedside.
--- NOTE | 2020-10-03 15:15 | PM.PN ---
Subjective Subjective: Interval history: Patient was seen at [facility], she tells me that she just not feeling well, she is not ready to go home, has not had a bowel movement yet, is a bit nauseous Medications: Medication Review Details: Current Medications Acetaminophen (Acetaminophen 500 Mg Tablet) 1,000 mg PO PRN [facility] Last Admin: 10/01/20 05:41 Dose: 1,000 mg Documented by: Allopurinol (Allopurinol 100 Mg Tablet) 100 mg PO DAILY@07 [facility] Last Admin: 10/01/20 05:41 Dose: 100 mg Documented by: Aspirin (Aspirin 81 Mg Ec Tablet) 81 mg PO DAILY [facility] Last Admin: 10/01/20 07:48 Dose: 81 mg Documented by: Atorvastatin Calcium (Atorvastatin 40 Mg Tablet) 40 mg PO BEDTIME [facility] Last Admin: 09/30/20 20:38 Dose: 40 mg Documented by: Dextrose (Dextrose 50% Syringe 50 Ml) 25 ml IVP ONCE PRN; Protocol PRN Reason: hypoglycemia protocol Dextrose (Dextrose 50% Syringe 50 Ml) 50 ml IVP PRN PRN; Protocol PRN Reason: hypoglycemia protocol Enoxaparin Sodium (Enoxaparin 40 Mg/0.4 Ml Syringe) 40 mg SUBCUT Q24H [facility] Last Admin: 09/30/20 18:03 Dose: 40 mg Documented by: Glucagon (Glucagon 1 Mg/Ml Inj 1 Ml) 1 mg IM ONCE PRN; Protocol PRN Reason: Adult Acute Hypoglycemia Prot. Dextrose (D5w) 500 mls @ 100 mls/hr IV ONCE PRN; Protocol PRN Reason: Adult Acute Hypoglycemia Prot Insulin Aspart (Insulin Aspart 100 Unit/1 Ml) 0 unit SUBCUT TIDWM [facility]; Protocol Last Admin: 10/01/20 07:48 Dose: 4 unit Documented by: Labetalol HCl (Labetalol 5 Mg/Ml Sdv 20ml) 10 mg IVP Q4H PRN PRN Reason: FOR SBP>180 or DBP>100, HOLD IF HR<60 Metoprolol Succinate (Metoprolol Succinate Er (24 Hr) 100 Mg Tablet) 100 mg PO DAILY@07 [facility] Last Admin: 10/01/20 05:40 Dose: 100 mg Documented by: Morphine Sulfate (Morphine 4 Mg/Ml Sdv 1 Ml) 2 mg IVP Q6H PRN PRN Reason: SEVERE PAIN Nitroglycerin (Nitroglycerin 0.4 Mg Sublingual Tablet) 0.4 mg SUBLINGUAL Q5M PRN PRN Reason: CHEST PAIN Nitroglycerin (Nitroglycerin 1 Gm/Inch Oint Pkt) 2 inch TOPICAL Q6H [facility] Last Admin: 10/01/20 07:48 Dose: 2 inch Documented by: Ondansetron HCl (Ondansetron 2 Mg/Ml Sdv 2 Ml) 4 mg IVP Q8H PRN PRN Reason: vomiting, or N/V if npo Pantoprazole Sodium (Pantoprazole Dr 40 Mg Tablet) 40 mg PO BID [facility] Last Admin: 10/01/20 07:48 Dose: 40 mg Documented by: Zolpidem Tartrate (Zolpidem 5 Mg Tablet) 10 mg PO BEDTIME [facility] Last Admin: 09/30/20 20:38 Dose: 10 mg Documented by: Vitals/I&O/Wt Last Vital Signs Temp 97.9 F 10/03/20 15:10 Pulse 72 10/03/20 15:10 Resp 17 10/03/20 15:10 BP 135/86 10/03/20 15:10 Pulse Ox 94 10/03/20 15:10 10/03/20 10/03/20 10/03/20 06:59 14:59 22:59 Intake Total 1000 / 7510.108 9574 / 1385 Output Total Balance 1000 / 4762.594 3742 / 1360 Physical Exam Const: COMMON NORMALS: no acute distress GENERAL APPEARANCE: cooperative HENMT: COMMON NORMALS: normocephalic HEAD & SCALP: normocephalic Neck/C-Spine: COMMON NORMALS: no JVD Resp: COMMON NORMALS: normal respiratory effort, No retractions, No use of accessory muscles and clear to auscultation bilaterally AUSCULTATION: clear to auscultation bilaterally Cardio: COMMON NORMALS: no JVD, regular rate, regular rhythm and S2 normal heart sound present RATE: regular rate RHYTHM: regular rhythm HEART SOUNDS: S2 normal heart sound present GI: COMMON NORMALS: Soft to palpation and non-tender AUSCULTATION: Yes normoactive bowel sounds PALPATION: Yes Soft to palpation Extremity: COMMON NORMALS: no pedal edema Data : 10/03/20 03:35 10/03/20 03:35 A&P Assessment and plan (1) Chest pain: -Risk factors include family history, hypertension, diabetes -Baseline troponin 9, 121 at 9.55, delta 0.55, BNP 161 -EKG shows sinus rhythm first-degree AV block -Stress test in 01/30/2020 low risk of cardiac events -CT angiogram negative for pulmonary emboli Patient chest pain is unlikely to be cardiac in etiology, likely associate with acute cholecystitis Plan: -Admit to [facility] -Serial troponins, serial EKGs, telemetry monitoring within normal limits -Aspirin, statin, beta-elizabeth -Nitro for as needed chest pain, she continues to have chest pain will consider starting a nitro drip -GI cocktail with minimal improvement of pain -Morphine -cardiac echo shows an EF of 56%, grade 1 or 4 diastolic dysfunction -Cardiac diet -Low-dose sliding scale -A1c 7.0, lipid panel triglyceride 232, LDL 89, HDL 43 -TSH within normal limits -Right upper quadrant ultrasound shows evidence of acute cholecystitis, -Cardiology has been consulted, plans on possible cardiac cath -Lovenox for DVT prophylaxis -DNR/DNI Status: Acute Qualifiers: Chest pain type: precordial pain Qualified Code(s): R07.2 - Precordial pain (2) Hypertension: Status: Acute Qualifiers: Hypertension type: essential hypertension Qualified Code(s): I10 - Essential (primary) hypertension (3) Type 2 diabetes mellitus: Status: Acute Qualifiers: Diabetes mellitus assisted insulin use: without assisted use Diabetes mellitus complication status: without complication Qualified Code(s): E11.9 - Type 2 diabetes mellitus without complications (4) GERD (gastroesophageal reflux disease): Status: Acute Qualifiers: Esophagitis presence: esophagitis presence not specified Qualified Code(s): K21.9 - Gastro-esophageal reflux disease without esophagitis (5) Acute cholecystitis: White blood cell count 12.2, CRP 162, afebrile, has right upper quadrant tenderness, abdomen ultrasound shows gallbladder wall thickening, with biliary sludge, gallstones, HIDA scan shows evidence of acute cholecystitis Plan: -Status post surgical intervention by Dr. 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
[2020-10-03] MEDS: lactulose oral liq 20 gm/30 mL UDC PO (16:19)
[2020-10-03 16:36] LABS: Glucose Point of Care 238 mg/dL (70-110)
[2020-10-03] MEDS: docusate sodium 100 mg Capsule PO (17:44)
[2020-10-03 20:22] LABS: Glucose Point of Care 240 mg/dL (70-110)
[2020-10-03] MEDS: atorvastatin 40 mg Tablet PO (21:06)
[2020-10-03] MEDS: zolpidem 5 mg Tablet 10 MG PO (21:06)
[2020-10-04] VITALS: BP 135/82; PULSE 58; RESP 17; O2SAT 91
--- NOTE | 2020-10-04 01:03 | ED_ITS ---
HPI - Chest Pain General: Chief Complaint: Chest Pain Stated Complaint: CP Time Seen by Provider: 09/30/20 10:49 History of Present Illness: Pain location: left chest Quality: sharp Relieving factors: nothing PFSH ED PFSH: Medical History (Updated 10/03/20 @ 10:55 by Tl Oneil MD) DVT (deep venous thrombosis) GERD (gastroesophageal reflux disease) Hypertension Type 2 diabetes mellitus Surgical History (Updated 10/03/20 @ 10:55 by Tl Oneil MD) H/O sinus surgery H/O varicose vein stripping H/O: hysterectomy Status post laparoscopic cholecystectomy (~10/03/20) Family History Father CAD (coronary artery disease) Mother CAD (coronary artery disease) Other Heart disease Myocardial infarction Social History Smoking and tobacco status: never smoked Alcohol intake: current Alcohol intake frequency: holidays/special occasions only Procedures EJ/Peripheral Line Arm R: Time Out Performed: Yes Skin Cleansed in Sterile Fashion: Yes Size (gauge): 20 IV Secured and Dressing Applied: Yes Patient Tolerated Procedure: well Additional Comments: Patient is a difficult IV stick. Several nurses have attempted and been unsuccessful. I performed an ultrasound-guided peripheral IV placement in the right upper arm. Patient tolerated it without difficulty. Course Vital Signs: Vital signs: Vital Signs Temperature 98.4 F 10/03/20 19:15 Pulse Rate 58 L 10/04/20 00:00 Respiratory Rate 17 10/04/20 00:00 Blood Pressure 135/82 10/04/20 00:00 Pulse Oximetry 91 10/04/20 00:00 MDM - Chest Pain Lab Data: Labs: Lab Results 09/30/20 09/30/20 09/30/20 Range/Units 10:56 10:56 10:56 WBC 9.3 (4.0-10.0) 10^3/ uL RBC 4.64 (4.1-5.3) 10^6/u L Hgb 14.9 (11.5-15.3) g/dL Hct 43.5 (37.0-47.0) % MCV 93.8 (81-99) fL MCH 32.1 (28.0-34.0) pg MCHC 34.3 (30.0-36.0) g/dL RDW 12.8 (12.1-15.1) % Plt Count 247 (130-400) 10^3/c mm MPV 10.7 H (7.4-10.4) fL Neut % (Auto) 63.0 % Lymph % (Auto) 26.7 % Bremer % (Auto) 8.3 % Eos % (Auto) 1.3 % Baso % (Auto) 0.4 % Neut # (Auto) 5.83 (1.8-7.7) 10^3/u L Lymph # (Auto) 2.5 (0.8-4.8) 10^3/u L Bremer # (Auto) 0.8 (0.2-0.9) 10^3/u L Eos # (Auto) 0.1 (0.0-0.8) 10^3/u L Baso # (Auto) 0.0 (0.0-0.1) 10^3/u L Nucleated RBC % (a uto) 0 % Nucleated RBCs # 0.0 /100WBC ESR (0-15) mm/hr D-Dimer (0-0.59) ug/mIFE U Sodium 134 L (136-145) mmol/L Potassium 4.4 (3.5-5.1) mmol/L Chloride 95 L (98-107) mmol/L Carbon Dioxide 23 (22-29) mmol/L Anion Gap 20.4 H (5-19) BUN 15 (8-23) mg/dL Creatinine 0.4 L (0.5-0.9) mg/dL GFR Calculation Not Reportable Glucose 146 H (65-115) mg/dL POC Glucose (70-110) mg/dL Estimat Average Gl ucose Hemoglobin A1c (4.0-6.0) % Calculated Osmolal ity 281 L (285-295) mOsm/k g Calcium 9.4 (8.5-10.5) mg/dL Phosphorus (2.5-4.5) mg/dL Magnesium (1.7-2.3) mg/dL Total Bilirubin 0.4 (0.15-1.2) mg/dL AST 46 H (0-32) U/L ALT 61 H (0-33) U/L Alkaline Phosphata se 34 L (35-105) IU/L Troponin T Baselin e 9 (0-10) ng/L Troponin T 120 Min campo (0-10) ng/L Delta Troponin T (0-10) ABS# Troponin T Hi Sens 6Hr (0-10) ng/L Troponin T Hi Sens 6Hr Delta (0-12) ng/L C-Reactive Protein (0.0-4.9) mg/L NT-Pro-B Natriuret Pep 161 (0-450) pg/mL Total Protein 8.1 (6.6-8.7) g/dL Albumin 4.8 (3.5-5.2) g/dL Globulin 3.3 (1.3-4.6) g/dL Triglycerides (0-150) mg/dL Cholesterol (0-200) mg/dL LDL Cholesterol, C alc (50-129) mg/dL HDL Cholesterol (60-100) mg/dL LDL/HDL Ratio (0.00-3.22) RATI O Cholesterol/HDL Ra sophy (0.0-4.40) mg/dL TSH (0.27-4.20) uIU/ mL Urine Color (Yellow) Urine Appearance (CLEAR) Urine pH (5-7) Ur Specific Gravit y (1.005-1.030) Urine Protein (Negative) Urine Glucose (UA) (Normal) Urine Ketones (Negative) Urine Blood (Negative) Urine Nitrate (Negative) Urine Bilirubin (Negative) Urine Urobilinogen (Negative) mg/dL Ur Leukocyte [place] ase (Negative) Hepatitis A IgM Ab (Nonreactive) Hep Bs Antigen (Nonreactive) Hep B Core IgM Ab (Nonreactive) Hepatitis C Antibo dy (Nonreactive) 09/30/20 09/30/20 09/30/20 Range/Units 10:56 10:56 10:56 WBC (4.0-10.0) 10^3/ uL RBC (4.1-5.3) 10^6/u L Hgb (11.5-15.3) g/dL Hct (37.0-47.0) % MCV (81-99) fL MCH (28.0-34.0) pg MCHC (30.0-36.0) g/dL RDW (12.1-15.1) % Plt Count (130-400) 10^3/c mm MPV (7.4-10.4) fL Neut % (Auto) % Lymph % (Auto) % Bremer % (Auto) % Eos % (Auto) % Baso % (Auto) % Neut # (Auto) (1.8-7.7) 10^3/u L Lymph # (Auto) (0.8-4.8) 10^3/u L Bremer # (Auto) (0.2-0.9) 10^3/u L Eos # (Auto) (0.0-0.8) 10^3/u L Baso # (Auto) (0.0-0.1) 10^3/u L Nucleated RBC % (a uto) % Nucleated RBCs # /100WBC ESR 22 H (0-15) mm/hr D-Dimer (0-0.59) ug/mIFE U Sodium (136-145) mmol/L Potassium (3.5-5.1) mmol/L Chloride (98-107) mmol/L Carbon Dioxide (22-29) mmol/L Anion Gap (5-19) BUN (8-23) mg/dL Creatinine (0.5-0.9) mg/dL GFR Calculation Glucose (65-115) mg/dL POC Glucose (70-110) mg/dL Estimat Average Gl ucose Hemoglobin A1c (4.0-6.0) % Calculated Osmolal ity (285-295) mOsm/k g Calcium (8.5-10.5) mg/dL Phosphorus (2.5-4.5) mg/dL Magnesium (1.7-2.3) mg/dL Total Bilirubin (0.15-1.2) mg/dL AST (0-32) U/L ALT (0-33) U/L Alkaline Phosphata se (35-105) IU/L Troponin T Baselin e (0-10) ng/L Troponin T 120 Min campo (0-10) ng/L Delta Troponin T (0-10) ABS# Troponin T Hi Sens 6Hr (0-10) ng/L Troponin T Hi Sens 6Hr Delta (0-12) ng/L C-Reactive Protein 3.5 (0.0-4.9) mg/L NT-Pro-B Natriuret Pep 163 (0-450) pg/mL Total Protein (6.6-8.7) g/dL Albumin (3.5-5.2) g/dL Globulin (1.3-4.6) g/dL Triglycerides (0-150) mg/dL Cholesterol (0-200) mg/dL LDL Cholesterol, C alc (50-129) mg/dL HDL Cholesterol (60-100) mg/dL LDL/HDL Ratio (0.00-3.22) RATI O Cholesterol/HDL Ra sophy (0.0-4.40) mg/dL TSH 1.43 (0.27-4.20) uIU/ mL Urine Color (Yellow) Urine Appearance (CLEAR) Urine pH (5-7) Ur Specific Gravit y (1.005-1.030) Urine Protein (Negative) Urine Glucose (UA) (Normal) Urine Ketones (Negative) Urine Blood (Negative) Urine Nitrate (Negative) Urine Bilirubin (Negative) Urine Urobilinogen (Negative) mg/dL Ur Leukocyte [place] a[place] (Negative) Hepatitis A IgM Ab (Nonreactive) Hep Bs Antigen (Nonreactive) Hep B Core IgM Ab (Nonreactive) Hepatitis C Antibo dy (Nonreactive) 09/30/20 09/30/20 09/30/20 Range/Units 11:47 12:17 12:58 WBC (4.0-10.0) 10^3/ uL RBC (4.1-5.3) 10^6/u L Hgb (11.5-15.3) g/dL Hct (37.0-47.0) % MCV (81-99) fL MCH (28.0-34.0) pg MCHC (30.0-36.0) g/dL RDW (12.1-15.1) % Plt Count (130-400) 10^3/c mm MPV (7.4-10.4) fL Neut % (Auto) % Lymph % (Auto) % Bremer % (Auto) % Eos % (Auto) % Baso % (Auto) % Neut # (Auto) (1.8-7.7) 10^3/u L Lymph # (Auto) (0.8-4.8) 10^3/u L Bremer # (Auto) (0.2-0.9) 10^3/u L Eos # (Auto) (0.0-0.8) 10^3/u L Baso # (Auto) (0.0-0.1) 10^3/u L Nucleated RBC % (a uto) % Nucleated RBCs # /100WBC ESR (0-15) mm/hr D-Dimer 0.64 H (0-0.59) ug/mIFE U Sodium (136-145) mmol/L Potassium (3.5-5.1) mmol/L Chloride (98-107) mmol/L Carbon Dioxide (22-29) mmol/L Anion Gap (5-19) BUN (8-23) mg/dL Creatinine (0.5-0.9) mg/dL GFR Calculation Glucose (65-115) mg/dL POC Glucose (70-110) mg/dL Estimat Average Gl ucose Hemoglobin A1c (4.0-6.0) % Calculated Osmolal ity (285-295) mOsm/k g Calcium (8.5-10.5) mg/dL Phosphorus (2.5-4.5) mg/dL Magnesium (1.7-2.3) mg/dL Total Bilirubin (0.15-1.2) mg/dL AST (0-32) U/L ALT (0-33) U/L Alkaline Phosphata se (35-105) IU/L Troponin T Baselin e (0-10) ng/L Troponin T 120 Min campo 9.55 (0-10) ng/L Delta Troponin T 0.55 (0-10) ABS# Troponin T Hi Sens 6Hr (0-10) ng/L Troponin T Hi Sens 6Hr Delta (0-12) ng/L C-Reactive Protein (0.0-4.9) mg/L NT-Pro-B Natriuret Pep (0-450) pg/mL Total Protein (6.6-8.7) g/dL Albumin (3.5-5.2) g/dL Globulin (1.3-4.6) g/dL Triglycerides (0-150) mg/dL Cholesterol (0-200) mg/dL LDL Cholesterol, C alc (50-129) mg/dL HDL Cholesterol (60-100) mg/dL LDL/HDL Ratio (0.00-3.22) RATI O Cholesterol/HDL Ra sophy (0.0-4.40) mg/dL TSH (0.27-4.20) uIU/ mL Urine Color Yellow (Yellow) Urine Appearance Clear (CLEAR) Urine pH 6 (5-7) Ur Specific Gravit y 1.010 (1.005-1.030) Urine Protein Neg (Negative) Urine Glucose (UA) Norm (Normal) Urine Ketones Negative (Negative) Urine Blood Neg (Negative) Urine Nitrate Negative (Negative) Urine Bilirubin Neg (Negative) Urine Urobilinogen Norm (Negative) mg/dL Ur Leukocyte [place] a[place] Negative (Negative) Hepatitis A IgM Ab (Nonreactive) Hep Bs Antigen (Nonreactive) Hep B Core IgM Ab (Nonreactive) Hepatitis C Antibo dy (Nonreactive) 09/30/20 09/30/20 09/30/20 Range/Units 15:15 17:20 17:42 WBC (4.0-10.0) 10^3/ uL RBC (4.1-5.3) 10^6/u L Hgb (11.5-15.3) g/dL Hct (37.0-47.0) % MCV (81-99) fL MCH (28.0-34.0) pg MCHC (30.0-36.0) g/dL RDW (12.1-15.1) % Plt Count (130-400) 10^3/c mm MPV (7.4-10.4) fL Neut % (Auto) % Lymph % (Auto) % Bremer % (Auto) % Eos % (Auto) % Baso % (Auto) % Neut # (Auto) (1.8-7.7) 10^3/u L Lymph # (Auto) (0.8-4.8) 10^3/u L Bremer # (Auto) (0.2-0.9) 10^3/u L Eos # (Auto) (0.0-0.8) 10^3/u L Baso # (Auto) (0.0-0.1) 10^3/u L Nucleated RBC % (a uto) % Nucleated RBCs # /100WBC ESR (0-15) mm/hr D-Dimer (0-0.59) ug/mIFE U Sodium (136-145) mmol/L Potassium (3.5-5.1) mmol/L Chloride (98-107) mmol/L Carbon Dioxide (22-29) mmol/L Anion Gap (5-19) BUN (8-23) mg/dL Creatinine (0.5-0.9) mg/dL GFR Calculation Glucose (65-115) mg/dL POC Glucose 183 H (70-110) mg/dL Estimat Average Gl ucose Hemoglobin A1c (4.0-6.0) % Calculated Osmolal ity (285-295) mOsm/k g Calcium (8.5-10.5) mg/dL Phosphorus (2.5-4.5) mg/dL Magnesium (1.7-2.3) mg/dL Total Bilirubin (0.15-1.2) mg/dL AST (0-32) U/L ALT (0-33) U/L Alkaline Phosphata se (35-105) IU/L Troponin T Baselin e (0-10) ng/L Troponin T 120 Min campo (0-10) ng/L Delta Troponin T (0-10) ABS# Troponin T Hi Sens 6Hr 12.47 H (0-10) ng/L Troponin T Hi Sens 6Hr Delta 3.47 (0-12) ng/L C-Reactive Protein (0.0-4.9) mg/L NT-Pro-B Natriuret Pep (0-450) pg/mL Total Protein (6.6-8.7) g/dL Albumin (3.5-5.2) g/dL Globulin (1.3-4.6) g/dL Triglycerides (0-150) mg/dL Cholesterol (0-200) mg/dL LDL Cholesterol, C alc (50-129) mg/dL HDL Cholesterol (60-100) mg/dL LDL/HDL Ratio (0.00-3.22) RATI O Cholesterol/HDL Ra sophy (0.0-4.40) mg/dL TSH (0.27-4.20) uIU/ mL Urine Color (Yellow) Urine Appearance (CLEAR) Urine pH (5-7) Ur Specific Gravit y (1.005-1.030) Urine Protein (Negative) Urine Glucose (UA) (Normal) Urine Ketones (Negative) Urine Blood (Negative) Urine Nitrate (Negative) Urine Bilirubin (Negative) Urine Urobilinogen (Negative) mg/dL Ur Leukocyte [place] a[place] (Negative) Hepatitis A IgM Ab Non-reactive (Nonreactive) Hep Bs Antigen Non-reactive (Nonreactive) Hep B Core IgM Ab Non-reactive (Nonreactive) Hepatitis C Antibo dy Non-reactive (Nonreactive) 09/30/20 09/30/20 10/01/20 Range/Units 17:42 20:00 04:04 WBC 12.3 H (4.0-10.0) 10^3/ uL RBC 4.14 (4.1-5.3) 10^6/u L Hgb 13.2 (11.5-15.3) g/dL Hct 38.6 (37.0-47.0) % MCV 93.2 (81-99) fL MCH 31.9 (28.0-34.0) pg MCHC 34.2 (30.0-36.0) g/dL RDW 12.9 (12.1-15.1) % Plt Count 215 (130-400) 10^3/c mm MPV 11.0 H (7.4-10.4) fL Neut % (Auto) 68.5 % Lymph % (Auto) 18.4 % Bremer % (Auto) 11.8 % Eos % (Auto) 0.8 % Baso % (Auto) 0.3 % Neut # (Auto) 8.37 H (1.8-7.7) 10^3/u L Lymph # (Auto) 2.3 (0.8-4.8) 10^3/u L Bremer # (Auto) 1.5 H (0.2-0.9) 10^3/u L Eos # (Auto) 0.1 (0.0-0.8) 10^3/u L Baso # (Auto) 0.0 (0.0-0.1) 10^3/u L Nucleated RBC % (a uto) 0 % Nucleated RBCs # 0.0 /100WBC ESR (0-15) mm/hr D-Dimer (0-0.59) ug/mIFE U Sodium (136-145) mmol/L Potassium (3.5-5.1) mmol/L Chloride (98-107) mmol/L Carbon Dioxide (22-29) mmol/L Anion Gap (5-19) BUN (8-23) mg/dL Creatinine (0.5-0.9) mg/dL GFR Calculation Glucose (65-115) mg/dL POC Glucose 160 H (70-110) mg/dL Estimat Average Gl ucose 154 Hemoglobin A1c 7.0 H (4.0-6.0) % Calculated Osmolal ity (285-295) mOsm/k g Calcium (8.5-10.5) mg/dL Phosphorus (2.5-4.5) mg/dL Magnesium (1.7-2.3) mg/dL Total Bilirubin (0.15-1.2) mg/dL AST (0-32) U/L ALT (0-33) U/L Alkaline Phosphata se (35-105) IU/L Troponin T Baselin e (0-10) ng/L Troponin T 120 Min campo (0-10) ng/L Delta Troponin T (0-10) ABS# Troponin T Hi Sens 6Hr (0-10) ng/L Troponin T Hi Sens 6Hr Delta (0-12) ng/L C-Reactive Protein (0.0-4.9) mg/L NT-Pro-B Natriuret Pep (0-450) pg/mL Total Protein (6.6-8.7) g/dL Albumin (3.5-5.2) g/dL Globulin (1.3-4.6) g/dL Triglycerides (0-150) mg/dL Cholesterol (0-200) mg/dL LDL Cholesterol, C alc (50-129) mg/dL HDL Cholesterol (60-100) mg/dL LDL/HDL Ratio (0.00-3.22) RATI O Cholesterol/HDL Ra sophy (0.0-4.40) mg/dL TSH (0.27-4.20) uIU/ mL Urine Color (Yellow) Urine Appearance (CLEAR) Urine pH (5-7) Ur Specific Gravit y (1.005-1.030) Urine Protein (Negative) Urine Glucose (UA) (Normal) Urine Ketones (Negative) Urine Blood (Negative) Urine Nitrate (Negative) Urine Bilirubin (Negative) Urine Urobilinogen (Negative) mg/dL Ur Leukocyte [place] ase (Negative) Hepatitis A IgM Ab (Nonreactive) Hep Bs Antigen (Nonreactive) Hep B Core IgM Ab (Nonreactive) Hepatitis C Antibo dy (Nonreactive) 10/01/20 10/01/20 10/01/20 Range/Units 04:04 04:04 06:33 WBC (4.0-10.0) 10^3/ uL RBC (4.1-5.3) 10^6/u L Hgb (11.5-15.3) g/dL Hct (37.0-47.0) % MCV (81-99) fL MCH (28.0-34.0) pg MCHC (30.0-36.0) g/dL RDW (12.1-15.1) % Plt Count (130-400) 10^3/c mm MPV (7.4-10.4) fL Neut % (Auto) % Lymph % (Auto) % Bremer % (Auto) % Eos % (Auto) % Baso % (Auto) % Neut # (Auto) (1.8-7.7) 10^3/u L Lymph # (Auto) (0.8-4.8) 10^3/u L Bremer # (Auto) (0.2-0.9) 10^3/u L Eos # (Auto) (0.0-0.8) 10^3/u L Baso # (Auto) (0.0-0.1) 10^3/u L Nucleated RBC % (a uto) % Nucleated RBCs # /100WBC ESR (0-15) mm/hr D-Dimer (0-0.59) ug/mIFE U Sodium 129 L (136-145) mmol/L Potassium 4.0 (3.5-5.1) mmol/L Chloride 91 L (98-107) mmol/L Carbon Dioxide 26 (22-29) mmol/L Anion Gap 16.0 (5-19) BUN 14 (8-23) mg/dL Creatinine 0.4 L (0.5-0.9) mg/dL GFR Calculation Not Reportable Glucose 174 H (65-115) mg/dL POC Glucose 217 H (70-110) mg/dL Estimat Average Gl ucose Hemoglobin A1c (4.0-6.0) % Calculated Osmolal ity 273 L (285-295) mOsm/k g Calcium 8.7 (8.5-10.5) mg/dL Phosphorus 3.3 (2.5-4.5) mg/dL Magnesium 1.5 L (1.7-2.3) mg/dL Total Bilirubin 0.9 (0.15-1.2) mg/dL AST 29 (0-32) U/L ALT 41 H (0-33) U/L Alkaline Phosphata se 29 L (35-105) IU/L Troponin T Baselin e (0-10) ng/L Troponin T 120 Min campo (0-10) ng/L Delta Troponin T (0-10) ABS# Troponin T Hi Sens 6Hr (0-10) ng/L Troponin T Hi Sens 6Hr Delta (0-12) ng/L C-Reactive Protein (0.0-4.9) mg/L NT-Pro-B Natriuret Pep (0-450) pg/mL Total Protein 6.7 (6.6-8.7) g/dL Albumin 3.8 (3.5-5.2) g/dL Globulin 2.9 (1.3-4.6) g/dL Triglycerides 232 H (0-150) mg/dL Cholesterol 178 (0-200) mg/dL LDL Cholesterol, C alc 89 (50-129) mg/dL HDL Cholesterol 43 L (60-100) mg/dL LDL/HDL Ratio 2.07 (0.00-3.22) RATI O Cholesterol/HDL Ra sophy 4.14 (0.0-4.40) mg/dL TSH (0.27-4.20) uIU/ mL Urine Color (Yellow) Urine Appearance (CLEAR) Urine pH (5-7) Ur Specific Gravit y (1.005-1.030) Urine Protein (Negative) Urine Glucose (UA) (Normal) Urine Ketones (Negative) Urine Blood (Negative) Urine Nitrate (Negative) Urine Bilirubin (Negative) Urine Urobilinogen (Negative) mg/dL Ur Leukocyte Cary ase (Negative) Hepatitis A IgM Ab (Nonreactive) Hep Bs Antigen (Nonreactive) Hep B Core IgM Ab (Nonreactive) Hepatitis C Antibo dy (Nonreactive) 10/01/20 Range/Units 10:44 WBC (4.0-10.0) 10^3/ uL RBC (4.1-5.3) 10^6/u L Hgb (11.5-15.3) g/dL Hct (37.0-47.0) % MCV (81-99) fL MCH (28.0-34.0) pg MCHC (30.0-36.0) g/dL RDW (12.1-15.1) % Plt Count (130-400) 10^3/c mm MPV (7.4-10.4) fL Neut % (Auto) % Lymph % (Auto) % Bremer % (Auto) % Eos % (Auto) % Baso % (Auto) % Neut # (Auto) (1.8-7.7) 10^3/u L Lymph # (Auto) (0.8-4.8) 10^3/u L Bremer # (Auto) (0.2-0.9) 10^3/u L Eos # (Auto) (0.0-0.8) 10^3/u L Baso # (Auto) (0.0-0.1) 10^3/u L Nucleated RBC % (a uto) % Nucleated RBCs # /100WBC ESR (0-15) mm/hr D-Dimer (0-0.59) ug/mIFE U Sodium (136-145) mmol/L Potassium (3.5-5.1) mmol/L Chloride (98-107) mmol/L Carbon Dioxide (22-29) mmol/L Anion Gap (5-19) BUN (8-23) mg/dL Creatinine (0.5-0.9) mg/dL GFR Calculation Glucose (65-115) mg/dL POC Glucose 215 H (70-110) mg/dL Estimat Average Gl ucose Hemoglobin A1c (4.0-6.0) % Calculated Osmolal ity (285-295) mOsm/k g Calcium (8.5-10.5) mg/dL Phosphorus (2.5-4.5) mg/dL Magnesium (1.7-2.3) mg/dL Total Bilirubin (0.15-1.2) mg/dL AST (0-32) U/L ALT (0-33) U/L Alkaline Phosphata se (35-105) IU/L Troponin T Baselin e (0-10) ng/L Troponin T 120 Min campo (0-10) ng/L Delta Troponin T (0-10) ABS# Troponin T Hi Sens 6Hr (0-10) ng/L Troponin T Hi Sens 6Hr Delta (0-12) ng/L C-Reactive Protein (0.0-4.9) mg/L NT-Pro-B Natriuret Pep (0-450) pg/mL Total Protein (6.6-8.7) g/dL Albumin (3.5-5.2) g/dL Globulin (1.3-4.6) g/dL Triglycerides (0-150) mg/dL Cholesterol (0-200) mg/dL LDL Cholesterol, C alc (50-129) mg/dL HDL Cholesterol (60-100) mg/dL LDL/HDL Ratio (0.00-3.22) RATI O Cholesterol/HDL Ra sophy (0.0-4.40) mg/dL TSH (0.27-4.20) uIU/ mL Urine Color (Yellow) Urine Appearance (CLEAR) Urine pH (5-7) Ur Specific Gravit y (1.005-1.030) Urine Protein (Negative) Urine Glucose (UA) (Normal) Urine Ketones (Negative) Urine Blood (Negative) Urine Nitrate (Negative) Urine Bilirubin (Negative) Urine Urobilinogen (Negative) mg/dL Ur Leukocyte [place] ase (Negative) Hepatitis A IgM Ab (Nonreactive) Hep Bs Antigen (Nonreactive) Hep B Core IgM Ab (Nonreactive) Hepatitis C Antibo dy (Nonreactive) Discharge Plan Discharge Patient Disposition: Placed in Observation Admit Provider: Nestor Berumen Clinical Impression: Chest pain Qualifiers: Chest pain type: precordial pain Qualified Code(s): R07.2 - Precordial pain Coding Level of Care Code ED [employer] Consultant for Karl Mario
[2020-10-04] MEDS: sodium chloride 0.9% 1,000 ML 100 ML IV ×2 (01:18→06:58)
[2020-10-04] MEDS: piperacillin-tazobactam 3.375 GM in sodium chloride 0.9% (plus) 50 ML IV ×2 (01:30→08:30)
[2020-10-04 03:19] VITALS: BP 144/70; PULSE 63; RESP 17; TEMP 37; O2SAT 94
[2020-10-04 06:00] VITALS: PULSE 61
[2020-10-04 06:16] LABS: Basophils % 0.2 %; Eosinophils % 0.3 %; Hematocrit 34.9 % (37.0-47.0); Hemoglobin 11.4 g/dL (11.5-15.3); Lymphocytes # 1.9 10^3/uL (0.8-4.8); Lymphocytes % 17.3 %; Mean Corpuscular HGB Conc 32.7 g/dL (30.0-36.0); Mean Corpuscular Hemoglobin 32.2 pg (28.0-34.0); Mean Corpuscular Volume 98.6 fL (81-99); Mean Platelet Volume 11.3 fL (7.4-10.4); Monocytes % 8.8 %; Neutrophils # 8.08 10^3/uL (1.8-7.7); Neutrophils % 72.9 %; Nucleated Red Blood Cells % 0 %; Platelet Count 212 10^3/cmm (130-400); Red Blood Count 3.54 10^6/uL (4.1-5.3); Red Cell Distribution Width 13.2 % (12.1-15.1); White Blood Count 11.1 10^3/uL (4.0-10.0)
[2020-10-04 06:41] LABS: Glucose Point of Care 151 mg/dL (70-110)
[2020-10-04 06:44] LABS: Alanine Aminotransferase 100 U/L (0-33); Albumin Level 3.3 g/dL (3.5-5.2); Alkaline Phosphatase 86 IU/L (35-105); Anion Gap 13.2 (5-19); Aspartate Amino Transferase 77 U/L (0-32); Blood Urea Nitrogen 9 mg/dL (8-23); Calcium 7.9 mg/dL (8.5-10.5); Carbon Dioxide 24 mmol/L (22-29); Chloride 103 mmol/L (98-107); Creatinine Clr Calc Pharmacy 55.6412; Globulin 3.1 g/dL (1.3-4.6); Glucose 160 mg/dL (65-115); Osmolality Calculated 284 mOsm/kg (285-295); Potassium 4.2 mmol/L (3.5-5.1); Sodium 136 mmol/L (136-145); Total Bilirubin 0.6 mg/dL (0.15-1.2); Total Protein 6.4 g/dL (6.6-8.7)
[2020-10-04] MEDS: metoprolol succinate ER (24 HR) 100 mg Tablet PO (06:59)
[2020-10-04] MEDS: allopurinol 100 mg Tablet PO (06:59)
--- NOTE | 2020-10-04 07:41 | DCPLANNER ---
Pg 2 of IM updated and reviewed with pt. She states that she used that yesterday and what she meant is that she told the Dr. that she just wasn't ready to go home and he honored that. Copy provided.
[2020-10-04 07:45] VITALS: BP 140/88; PULSE 64; RESP 12; TEMP 36.1; O2SAT 93
[2020-10-04] MEDS: aspirin 81 mg EC Tablet PO (08:25)
[2020-10-04] MEDS: docusate sodium 100 mg Capsule PO (08:26)
[2020-10-04] MEDS: pantoprazole DR 40 mg Tablet PO (08:26)
[2020-10-04] MEDS: HYDROcodone-acetaminophen 5-325 mg Tablet 1 TAB PO (08:27)
--- NOTE | 2020-10-04 09:26 | PM.PN ---
Subjective Subjective: Interval history: Patient doing well denies any nausea or vomiting, tolerating clears Vitals/I&O/Wt Last Vital Signs Temp 97.0 F L 10/04/20 07:45 Pulse 64 10/04/20 07:45 Resp 12 10/04/20 07:45 BP 140/88 10/04/20 07:45 Pulse Ox 93 10/04/20 07:45 10/03/20 10/04/20 10/04/20 22:59 06:59 14:59 Intake Total 740 / 3776.666 1651.666 / 3776.666 360 / 360 Balance 740 / 3751.666 1651.666 / 3751.666 360 / 360 Physical Exam Narrative: EXAM NARRATIVE: Abdomen: Soft, nondistended, minimally tender, incision clean dry intact Data : 10/04/20 05:06 10/04/20 05:06 A&P Assessment and plan (1) Status post laparoscopic cholecystectomy: All doing well Should be able to go home today Follow-up in 2 weeks Status: Acute Attestations Medical Necessity Statement*: Post lap romy doing well, LFTs trending down, should be able to go home today Coding Level of Care Code Acute Professor Of Business Administration for Chg Fwd Diagnoses Status post laparoscopic cholecystectomy Z90.49
--- NOTE | 2020-10-04 09:30 | PC.NURSE ---
Patient ambulated in hallway with SBA from daughter. Tolerated activity well. Patient is passing gas at this time, but has not produced a BM. Nurse to continue to monitor.
[2020-10-04 11:27] LABS: Glucose Point of Care 209 mg/dL (70-110)
[2020-10-04 12:00] VITALS: BP 122/62; PULSE 65; RESP 14; TEMP 36.7; O2SAT 95
--- NOTE | 2020-10-04 12:50 | PC.NURSE ---
Discharge instructions given per the physician's orders. Patient verbalized understanding of teaching and did not have any further questions. IV has been removed. Patient assisted with dressing by daughter. Patient to be drove home in private vehicle by daughter and spouse. No further needs identified at this time.
[2020-10-04 14:07] VITALS: BP 122/62; PULSE 65; RESP 14; TEMP 36.7; O2SAT 95
== END 2020-10-04 12:55 | disposition home or self-care (01) | DRG 419 ==
LOC: ER 16:09 → CSU 16:28
PROVIDERS: Surgery; Admitting Provider Family Medicine; Emergency Provider Family Medicine; PCP Family Medicine; Visit Provider Family Medicine
PROC: 0FT44ZZ Resection of Gallbladder, Percutaneous Endoscopic Approach (ICD-10-PCS; CPT 47562; principal; 2020-10-03 09:30)
DX: K80.00 Calculus of gallbladder with acute cholecystitis without obstruction (principal); I10 Essential (primary) hypertension; E11.9 Type 2 diabetes mellitus without complications; K21.9 Gastro-esophageal reflux disease without esophagitis; K52.9 Noninfective gastroenteritis and colitis, unspecified; R06.09 Other forms of dyspnea; E87.6 Hypokalemia; E83.42 Hypomagnesemia; E66.9 Obesity, unspecified; Z68.32 Body mass index [BMI] 32.0-32.9, adult; Z82.49 Family history of ischemic heart disease and other diseases of the circulatory system; Z79.84 Long term (current) use of oral hypoglycemic drugs; Z86.718 Personal history of other venous thrombosis and embolism; Z66 Do not resuscitate
CPT/HCPCS: 36415; 36416; 71045; 71275; 76705; 78226; 80053; 80061; 80074; 81003; 82962; 83036; 83735; 83880; 84100; 84145; 84443; 84484; 85025; 85378; 85651; 86140; 88304; 93005; 93306; 94664; 96372; 96374; 99285; A9537; G0378; J1100; J1650; J1815; J2270; J2370; J2405; J2543; J2704; J2710; J3010; J3475; J3490; J7030; Q9967

== ENCOUNTER → 2022-04-15 09:41 | Outpatient (BNVA) | payer MEDICARE, BC, SELFPAY | PROVIDERS: PCP Family Medicine; Visit Provider Internal Medicine Cardiovascular Disease | DX: R06.09 Other forms of dyspnea (principal); I10 Essential (primary) hypertension; E11.9 Type 2 diabetes mellitus without complications; Z79.84 Long term (current) use of oral hypoglycemic drugs | CPT/HCPCS: 99214 ==

== ENCOUNTER 2022-06-23 07:00 | Emergency (ER) | payer MEDICARE, BC, SELFPAY ==
[2022-06-23] VITALS (9 sets, daily range): BP systolic 140–194; BP diastolic 84–113; PULSE 66–78; RESP 16–18; O2SAT 95–98; BMI 29.9
--- NOTE | 2022-06-23 08:00 | XRR_ITS ---
PROCEDURE INFORMATION: Exam: XR Chest Exam date and time: 06/23/2022 8:13 AM Age: 82 years old Clinical indication: Cough and dyspnea. Dizziness since this morning. Dyspnea/cough TECHNIQUE: Imaging protocol: Radiologic exam of the chest. Views: 1 view. COMPARISON: CR XR chest 1V portable [id number] 09/30/2020 10:51 AM FINDINGS: Lungs: There is mild peribronchial wall thickening. Mild bibasilar scarring or atelectasis. Possible new nodule or lesion at the lateral left base measuring 1.4 cm. Pleural spaces: No pleural effusion. No pneumothorax. Heart/Mediastinum: The cardiac silhouette is unchanged. No gross evidence of pneumomediastinum. Bones/joints: No gross fracture. Suture anchor in the proximal right humerus. XR/XR chest 1V portable [id number] IMPRESSION: 1. Mild peribronchial wall thickening; query viral infection/bronchitis, chronic bronchitis and/or asthma. 2. Possible new nodule or lesion at the lateral left base measuring 1.[address] chest to further assess.
--- NOTE | 2022-06-23 08:00 | ECG_ITS ---
[facility] Test Date: 2022-06-23 Pat Name: Lindsey Pinto Department: Room: Gender: Female Inside Sales Director: : 1940 Requested By: Daniel Birmingham Order Number: [id number] Braulio MD: Hank Beard M.D. Measurements Intervals [place] Rate: 68 P: 42 ME: 196 QRS: -43 QRSD: 138 T: 46 QT: 436 QTc: 467 Interpretive Statements SINUS RHYTHM LEFT AXIS DEVIATION [QRS AXIS < -30] RIGHT BUNDLE BRANCH BLOCK [120+ ms QRS DURATION, UPRIGHT V1, 40+ ms S IN I/aVL/V4/V5/V6] Compared to ECG 09/30/2020 16:59:05 Right bundle-branch block now present Incomplete right bundle-branch block no longer present Electronically Signed On 06-23-2022 20:41:24 SALES DEPARTMENT MANAGER by Hank Beard M.D. [id number]
--- NOTE | 2022-06-23 08:14 | W.ED.DIZZY ---
HPI - Dizziness General: Chief Complaint: Dizziness Stated Complaint: fell, rocking motion, and diabetic Time Seen by Provider: 06/23/22 07:40 Source: patient Mode of arrival: ambulatory History of Present Illness: HPI Narrative: 82-year-old female presents emergency room complaining of lightheadedness dizziness. Patient is diabetic. She sat up at the edge of the bed to get very dizzy and lowered herself to the floor she did not crawled around to another piece of furniture and got her self up when she got up she got dizzy again. She still feels somewhat unsteady she has some vague chest discomfort. No vomiting or diarrhea but she has been nauseous. She has no history of previous stroke or coronary artery disease. Blood pressure markedly elevated on presentation to the ER. MD elicited complaint: dizziness Onset (ago): hour(s) Timing: awoke with symptoms Severity: mild Description: sense of movement, lightheadedness and difficulty walking Context: change in body position Exacerbating factors: nothing Relieving factors: nothing Associated symptoms: Reports chest pain and nausea; Denies change in hearing, chills, cough, diaphoresis, ear discharge, ear pressure, fevers/chills, headache(s), malaise, nasal congestion, palpitations, rash, short of breath, syncope, tinnitus, vomiting or weakness Associated neuro symptoms: Deny confusion, difficulty speaking, dysphagia, extremity weakness, facial numbness, facial weakness, gait changes, numbness in extremities or visual changes Review of Systems Const: Denies: fever(s), chills, fatigue, malaise or diaphoresis ENMT: Denies: throat pain, ear discharge, change in hearing, tinnitus or nasal congestion Card: Reports: chest pain; Denies: palpitations, irregular heart rhythm, edema, swelling of feet/ankles or syncope Resp: Denies: dyspnea, productive cough or non-productive cough GI: Reports: nausea; Denies: abdominal pain, vomiting or dysphagia : Denies: flank pain, difficulty voiding, dysuria, urinary frequency or urinary urgency Skin/Breast: Denies: rash or pruritus Neuro: Denies: headache(s), numbness in extremities or confusion PFS ED PFSH: Medical History (Updated 07/01/22 @ 00:00 by JACKIE Amos) Acute sinusitis with symptoms > 10 days DVT (deep venous thrombosis) GERD (gastroesophageal reflux disease) Hypertension Type 2 diabetes mellitus Surgical History H/O sinus surgery H/O varicose vein stripping H/O: hysterectomy Status post laparoscopic cholecystectomy (~10/03/20) Family History Father CAD (coronary artery disease) Mother CAD (coronary artery disease) Other Heart disease Myocardial infarction Social History Smoking and tobacco status: never smoked Alcohol intake: current Alcohol intake frequency: holidays/special occasions only Physical Exam Const: GENERAL APPEARANCE: cooperative and comfortable ORIENTATION/CONSCIOUSNESS: Yes awake, Yes oriented to person, Yes oriented to place and Yes oriented to time HENMT: COMMON NORMALS: normocephalic, atraumatic and hearing grossly normal bilaterally HEAD & SCALP: normocephalic and atraumatic Resp: COMMON NORMALS: normal respiratory effort, No retractions, No use of accessory muscles and clear to auscultation bilaterally AUSCULTATION: clear to auscultation bilaterally Cardio: COMMON NORMALS: regular rate, regular rhythm and No murmurs present (Cardio) RATE: regular rate RHYTHM: regular rhythm GI: COMMON NORMALS: Soft to palpation and No hepatosplenomegaly present AUSCULTATION: Yes normoactive bowel sounds PALPATION: Yes Soft to palpation, No Tenderness to palpation present (GI), No Guarding due to palpation present (GI) and Yes No hepatosplenomegaly present Extremity: COMMON NORMALS: normal to inspection, capillary refill normal, no clubbing, cyanosis or edema, no calf tenderness and no pedal edema Neuro: SENSORIUM/ORIENTATION: Yes oriented to person, Yes oriented to place and Yes oriented to time Skin: COMMON NORMALS: no rashes or lesions noted GENERAL SKIN EXAM: no rashes or lesions noted Course Vital Signs: Vital signs: Vital Signs Pulse Rate 76 06/23/22 12:44 Respiratory Rate 16 06/23/22 12:44 Blood Pressure 140/84 06/23/22 12:30 Pulse Oximetry 95 06/23/22 12:44 Oxygen Delivery Me thod 06/23/22 07:46 MDM - Dizziness Medical Decision Making Symptoms reproducible with motion of the head. She has no focal neurologic deficits not had any vomiting. Labs and imaging reviewed with the patient. EKGs reviewed in the chart no acute changes. We will discharge patient home meclizine follow-up with primary care. Medical Records I reviewed the patient's medical records. Lab Data I reviewed the patient's lab results. 06/23/22 08:12 06/23/22 08:12 Radiology Impressions Chest X-Ray 06/23/22 08:00 IMPRESSION: 1. Mild peribronchial wall thickening; query viral infection/bronchitis, chronic bronchitis and/or asthma. 2. Possible new nodule or lesion at the lateral left base measuring 1.[address] chest to further assess. Head CT 06/23/22 08:27 IMPRESSION: 1. No evidence of intracranial hemorrhage or mass effect. 2. Moderate small vessel changes. Moderate parenchymal volume loss. 3. No acute intracranial findings. Head/Neck CTA 06/23/22 09:00 IMPRESSION: 1. 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 Adjacent smaller aneurysm measuring 3 mm involving a small adjacent MCA branch. 2. No flow-limiting intracranial stenosis. Mild intracranial atheromatous disease involving the LEFT greater than RIGHT M1 segments. 3. Vertebral arteries are patent. Basilar artery is patent. Normal vascularity to the HAT FORMING MACHINE FEEDER territory bilaterally. 4. Moderate atheromatous disease RIGHT carotid bulb extending into the ICA with stenosis measuring approximately 50%. 5. No significant LEFT ICA stenosis. 6. Pulmonary nodule partially visualized in the super segment LEFT upper lobe measuring 13 mm similar to the prior chest CT 11 26,019. This appears slightly larger today. Recommend [address] follow-up. Notified Daniel Michele DO at 06/23/2022 9:42 AM. Laboratory Results WBC 7.7 10^3/uL (4.0-10.0) 06/23/22 08:12 RBC 4.40 10^6/uL (4.1-5.3) 06/23/22 08:12 Hgb 14.0 g/dL (11.5-15.3) 06/23/22 08:12 Hct 41.3 % (37.0-47.0) 06/23/22 08:12 MCV 93.9 fl (81-99) 06/23/22 08:12 MCH 31.8 pg (28.0-34.0) 06/23/22 08:12 MCHC 33.9 g/dL (30.0-36.0) 06/23/22 08:12 RDW 13.0 % (12.1-15.1) 06/23/22 08:12 Plt Count 241 10^3/cmm (130-400) 06/23/22 08:12 MPV 10.5 fL (7.4-10.4) H 06/23/22 08:12 Neut % (Auto) 52.6 % 06/23/22 08:12 Lymph % (Auto) 35.1 % 06/23/22 08:12 [place] % (Auto) 9.2 % 06/23/22 08:12 Eos % (Auto) 2.3 % 06/23/22 08:12 Baso % (Auto) 0.5 % 06/23/22 08:12 Neut # (Auto) 4.07 10^3/uL (1.8-7.7) 06/23/22 08:12 Lymph # (Auto) 2.7 10^3/uL (0.8-4.8) 06/23/22 08:12 [place] # (Auto) 0.7 10^3/uL (0.2-0.9) 06/23/22 08:12 Eos # (Auto) 0.2 10^3/uL (0.0-0.8) 06/23/22 08:12 Baso # (Auto) 0.0 10^3/uL (0.0-0.1) 06/23/22 08:12 Nucleated RBC % (auto) 0 % 06/23/22 08:12 Nucleated RBCs # 0.0 /100WBC 06/23/22 08:12 Sodium 138 mmol/L (136-145) 06/23/22 08:12 Potassium 3.8 mmol/L (3.5-5.1) 06/23/22 08:12 Chloride 99 mmol/L (98-107) 06/23/22 08:12 Carbon Dioxide 23 mmol/L (22-29) 06/23/22 08:12 Anion Gap 19.8 (5-19) H 06/23/22 08:12 BUN 21 mg/dL (8-23) 06/23/22 08:12 Creatinine 0.5 mg/dL (0.5-0.9) 06/23/22 08:12 GFR Calculation Not Reportable 06/23/22 08:12 Glucose 214 mg/dL (65-115) H 06/23/22 08:12 POC Glucose 196 mg/dL (70-110) H 06/23/22 08:22 Calculated Osmolality 295 mOsm/kg (285-295) 06/23/22 08:12 Calcium 9.2 mg/dL (8.5-10.5) 06/23/22 08:12 Total Bilirubin 0.3 mg/dL (0.15-1.2) 06/23/22 08:12 AST 54 U/L (0-32) H 06/23/22 08:12 ALT 60 U/L (0-33) H 06/23/22 08:12 Alkaline Phosphatase 32 U/L (35-105) L 06/23/22 08:12 Troponin T Baseline 13 ng/L (0-10) H 06/23/22 08:12 Troponin T 120 Minute 12.53 ng/L (0-10) H 06/23/22 10:38 Delta Troponin T -0.47 ABS# (0-10) L 06/23/22 10:38 Total Protein 7.3 g/dL (6.6-8.7) 06/23/22 08:12 Albumin 4.5 g/dL (3.5-5.2) 06/23/22 08:12 Globulin 2.8 g/dL (1.3-4.6) 06/23/22 08:12 Urine Color Yellow (Yellow) 06/23/22 08:45 Urine Appearance Clear (CLEAR) 06/23/22 08:45 Urine pH 5 (5-7) 06/23/22 08:45 Ur Specific [place] 1.020 (1.005-1.030) 06/23/22 08:45 Urine Protein Neg (Negative) 06/23/22 08:45 Urine Glucose (UA) Norm (Normal) 06/23/22 08:45 Urine Ketones Negative (Negative) 06/23/22 08:45 Urine Blood Neg (Negative) 06/23/22 08:45 Urine Nitrate Negative (Negative) 06/23/22 08:45 Urine Bilirubin Neg (Negative) 06/23/22 08:45 Urine Urobilinogen Norm mg/dL (Negative) 06/23/22 08:45 Ur Leukocyte Esterase Negative (Negative) 06/23/22 08:45 Discharge Plan Discharge Patient Disposition: Home Clinical Impression: Labyrinthitis, Benign essential HTN, Lung nodule Condition: Stable Prescriptions: New aspirin 81 mg tablet,delayed release (DR/EC) 81 mg PO DAILY Qty: 30 0RF amlodipine 5 mg tablet 5 mg PO DAILY Qty: 20 0RF No Action hydrochlorothiazide 25 mg tablet 25 mg PO DAILY@07 metformin 500 mg tablet 500 mg PO BID allopurinol 100 mg tablet 100 mg PO DAILY PRN (Reason: GOUT) sulfamethoxazole-trimethoprim [Bactrim DS] 800-160 mg tablet 1 tab PO BID Qty: 30 0RF fluticasone propionate 50 mcg/actuation spray,suspension 1 spray intranasal BID Qty: 16 11RF Rx Instructions: administer into each nostril prednisone 20 mg tablet 40 mg PO DAILY Qty: 10 0RF zolpidem 10 mg tablet 10 mg PO BEDTIME Qty: 30 5RF acetaminophen [Tylenol Extra Strength] 500 mg Tablet 1,000 mg PO Q6H PRN (Reason: Pain) loratadine [Allergy Relief (loratadine)] 10 mg tablet 10 mg PO DAILY PRN (Reason: Allergy Symptoms) metoprolol succinate 100 mg tablet extended release 24 hr 100 mg PO DAILY@07 multivitamin Tablet 1 tab PO DAILY PRN (Reason: UNKNOWN) albuterol sulfate 2.5 mg /3 mL (0.083 %) solution for nebulization 2.5 mg inhalation Q4H PRN (Reason: Shortness Of Breath) Aleve 220 mg Tablet 440 mg PO Q12H PRN (Reason: Pain) Advil 200 mg Tablet 400 mg PO Q6H PRN (Reason: Pain) Discharge Orders: Discharge ED (Routine); Ordered 06/23/22 Ordered By: Daniel Michele Referrals: Bala Sen DO [Primary Care Provider] - Discharge Diet: Usual diet Discharge Activity: Increase activity as tolerated Patient Instructions: Opioid Safety, Pain Management Activity Restrictions/Additional Instructions: You were seen today for vertiginous symptoms. Suspect this is caused by the inner ear. You may use the meclizine every 6 hours as needed to alleviate those symptoms. Your blood pressure was also elevated we will add amlodipine 5 mg once daily. Finally do recommend that you start aspirin [address] of the head and CTA of the head and neck did not show any evidence of acute stroke but there is areas of narrowing in the blood vessels. Finally there was a lung nodule that should have follow-up with your primary care doctor in the next 6 months Coding Level of Care Code ED Supervisor Joiners for Tammykelvin Mario Exam Detailed NIH stroke score NIHSS Level Of Consciousness - 1a: 0 Level Of Consciousness Questions - 1b: Both Correct Level Of Consciousness Commands - 1c: Both Correct Best Gaze - 2: Normal Visual Day - 3: No Visual Loss Facial Palsy - 4: Normal Motor Arm Right - 5: No Drift Motor Arm Left - 5: No Drift Motor Leg Right - 6: No Drift Motor Leg Left - 6: No Drift Limb Ataxia - 7: Absent Sensory - 8: Normal Best Language - 9: No Aphasia Dysarthia - 10: Normal Extinction And Inattention - 11: 0 Score Total Score: 0
[2022-06-23 08:23] LABS: Basophils % 0.5 %; Eosinophils # 0.2 10^3/uL (0.0-0.8); Eosinophils % 2.3 %; Hematocrit 41.3 % (37.0-47.0); Lymphocytes # 2.7 10^3/uL (0.8-4.8); Lymphocytes % 35.1 %; Mean Corpuscular HGB Conc 33.9 g/dL (30.0-36.0); Mean Corpuscular Hemoglobin 31.8 pg (28.0-34.0); Mean Corpuscular Volume 93.9 fl (81-99); Mean Platelet Volume 10.5 fL (7.4-10.4); Monocytes # 0.7 10^3/uL (0.2-0.9); Monocytes % 9.2 %; Neutrophils # 4.07 10^3/uL (1.8-7.7); Neutrophils % 52.6 %; Nucleated Red Blood Cells % 0 %; Platelet Count 241 10^3/cmm (130-400); White Blood Count 7.7 10^3/uL (4.0-10.0)
--- NOTE | 2022-06-23 08:27 | CT_ITS ---
WS: [id number] CT HEAD TECHNIQUE: Noncontrast CT of the head obtained from the skullbase to the vertex. CLINICAL INFORMATION: dizziness/HTN COMPARISON: None. DLP: 1010.[address] scans at [facility] use at least one of these dose optimization techniques: automated e xposure control; mA and/or kV adjustment per patient size (includes targeted exams where dose is matc hed to clinical indication); or iterative reconstruction. FINDINGS: No evidence of intracranial hemorrhage or mass effect. Ventricular system and basal cisterns are orr nt. Moderate small vessel changes with moderate parenchymal volume loss. No extra-axial fluid collect ions. No evidence of mass or mass effect. Partially visualized polyps in the RIGHT maxillary sinus. Evidence of prior paranasal sinus surgery. Mastoid air cells are well aerated. Intracranial vascular calcification. Normal posterior nasopharynx . CT/CT head wo con* [id number] IMPRESSION: 1. No evidence of intracranial hemorrhage or mass effect. 2. Moderate small vessel changes. Moderate parenchymal volume loss. 3. No acute intracranial findings.
[2022-06-23 08:32] LABS: Glucose Point of Care 196 mg/dL (70-110)
--- NOTE | 2022-06-23 08:32 | PC.NURSE ---
DR. DAMICO GAVE VERBAL ORDER TO HOLD MEDICATIONS UNTIL FURTHER NOTICE.
[2022-06-23 08:40] LABS: Alanine Aminotransferase 60 U/L (0-33); Albumin Level 4.5 g/dL (3.5-5.2); Alkaline Phosphatase 32 U/L (35-105); Anion Gap 19.8 (5-19); Aspartate Amino Transferase 54 U/L (0-32); Blood Urea Nitrogen 21 mg/dL (8-23); Calcium 9.2 mg/dL (8.5-10.5); Carbon Dioxide 23 mmol/L (22-29); Chloride 99 mmol/L (98-107); Globulin 2.8 g/dL (1.3-4.6); Glucose 214 mg/dL (65-115); Osmolality Calculated 295 mOsm/kg (285-295); Potassium 3.8 mmol/L (3.5-5.1); Sodium 138 mmol/L (136-145); Total Bilirubin 0.3 mg/dL (0.15-1.2); Total Protein 7.3 g/dL (6.6-8.7)
[2022-06-23 08:52] LABS: Add Urine Microscopic? NO; Charge for UA Resulting for Rev
[2022-06-23 08:56] LABS: Troponin(5th) Baseline 13 ng/L (0-10)
[2022-06-23 08:57] LABS: Urine Color Yellow (Yellow)
[2022-06-23 08:58] LABS: Bilirubin Urine Neg (Negative); Blood Urine Neg (Negative); Glucose Urine UA Norm (Normal); Ketones Urine Negative (Negative); Leukocyte Esterase Urine Negative (Negative); Nitrate Urine Negative (Negative); Protein Urine Neg (Negative); Urine Appearance Clear (CLEAR); Urobilinogen Urine Norm (Negative); pH Urine 5 (5-7)
--- NOTE | 2022-06-23 09:00 | CT_ITS ---
WS: [id number] CTA HEAD AND NECK TECHNIQUE: Contrast enhanced CTA of the head and neck with coronal and sagittal reformatted images an d maximum intensity projection (MIP) images. NASCET criteria utilized. CLINICAL INFORMATION: posterior stroke COMPARISON: None. DLP: 421.[address] scans at [facility] use at least one of these dose optimization techniques: automated e xposure control; mA and/or kV adjustment per patient size (includes targeted exams where dose is matc hed to clinical indication); or iterative reconstruction. FINDINGS: RIGHT: RIGHT common carotid artery is patent. Moderate atherosclerotic RIGHT carotid bulb extending i nto the ICA with stenosis measuring approximately 50%. RIGHT ICA is patent to the skull base. LEFT: LEFT common carotid artery is patent. Mild atheromatous plaque LEFT carotid bulb. No significan t LEFT ICA stenosis. LEFT ICA is patent to the skull base. Both vertebral arteries are patent. RIGHT dominant vertebral artery. Mild intracranial LEFT vertebral artery stenosis. Basilar artery is patent. Normal vascularity to the HOSPICE EDUCATOR territory bilaterally. Both ICAs are patent to the skull base. Moderate cavernous carotid calcification. Mild segmental narr owing LEFT greater than RIGHT M1 segments due to atheromatous disease. 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 Additional adjacent tiny branch aneurysm measuring 3 mm. No flow-limiting st enosis. Normal vascularity to the DEVENDRA territory bilaterally. Evidence of prior paranasal sinus surgery. Retention cyst or polyp in the RIGHT maxillary sinus measu ring 2.2 x 1.7 CCM. Partially visualized nodule in the super segment LEFT lower lobe measuring 13 mm. Recommend follow-up CT chest. Small nodules in the thyroid involving the thyroid isthmus. Largest nodule measures 10 mm[address]. CT/CT angio headneck* [id number] IMPRESSION: 1. 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 Adjacent smaller ane urysm measuring 3 mm involving a small adjacent MCA branch. 2. No flow-limiting intracranial stenosis. Mild intracranial atheromatous dise ase involving the LEFT greater than RIGHT M1 segments. 3. Vertebral arteries are patent. Basilar artery is patent. Normal vascularity to the HOSPICE EDUCATOR territory bilaterally. 4. Moderate atheromatous disease RIGHT carotid bulb extending into the ICA wit h stenosis measuring approximately 50%. 5. No significant LEFT ICA stenosis. 6. Pulmonary nodule partially visualized in the super segment LEFT upper lobe measuring 13 mm similar to the prior chest CT 11 26,019. This appears slightly larger today. Recommend [address] follow-up. Notified Daniel Michele DO at 06/23/2022 9:42 AM.
[2022-06-23] MEDS: iohexol 350 mg/mL 500 mL Btl (per mL) IV (09:22)
[2022-06-23] MEDS: amlodipine 5 mg Tablet PO (10:48)
--- NOTE | 2022-06-23 10:50 | ECG_ITS ---
[facility] Test Date: 2022-06-23 Pat Name: Lindsey Pinto Department: Room: Gender: Female Straight Line Edger: : 1940 Requested By: Daniel Birmingham Order Number: [id number] Braulio MD: Hank Beard M.D. Measurements Intervals [place] Rate: 64 P: 25 MT: 203 QRS: -26 QRSD: 126 T: 29 QT: 446 QTc: 461 Interpretive Statements SINUS RHYTHM BORDERLINE LEFT AXIS DEVIATION [QRS AXIS < -20] RIGHT BUNDLE BRANCH BLOCK [120+ ms QRS DURATION, UPRIGHT V1, 40+ ms S IN I/aVL/V4/V5/V6] Compared to ECG 06/23/2022 08:08:12 No significant changes Electronically Signed On 06-23-2022 20:48:30 E COMMERCE ARCHITECT by Hank Beard M.D. [id number]
[2022-06-23 11:13] LABS: Troponin 5 2HR 12.53 ng/L (0-10); Troponin 5 2HR Delta -0.47 ABS# (0-10)
[2022-06-23] MEDS: hyDRALAzine 20 mg/mL INJ 1 mL 10 MG IVP (11:40)
== END 2022-06-23 12:46 | disposition home or self-care (01) ==
PROVIDERS: Emergency Provider Family Medicine; PCP Family Medicine
DX: H83.09 Labyrinthitis, unspecified ear (principal); I10 Essential (primary) hypertension; R91.1 Solitary pulmonary nodule; Z79.84 Long term (current) use of oral hypoglycemic drugs; E11.9 Type 2 diabetes mellitus without complications
CPT/HCPCS: 36416; 70450; 70496; 70498; 71045; 80053; 81003; 82962; 84484; 85025; 93005; 96374; 99285; J0360; Q9967

== ENCOUNTER → 2022-10-26 08:30 | Outpatient (BNVA) | payer MEDICARE, BC, SELFPAY | PROVIDERS: PCP Family Medicine; Referring Provider Family Medicine; Visit Provider Specialist | DX: M65.321 Trigger finger, right index finger (principal) | CPT/HCPCS: 73130; 99214 ==

== ENCOUNTER 2022-11-24 11:17 | Day surgery (SDC) | payer MEDICARE, BC, OTHER, SELFPAY ==
[2022-11-23 13:30] VITALS: BMI 30.7
[2022-11-24] VITALS (10 sets, daily range): BP systolic 136–169; BP diastolic 76–101; PULSE 57–69; RESP 14–20; TEMP 36.1–36.6; O2SAT 92–95
[2022-11-24] MEDS: sodium chloride 0.9% 1,000 ML 30 ML IV (12:10)
[2022-11-24] MEDS: acetaminophen 1,000 MG/100 ML PIGGYBACK 400 MG IV (12:13)
[2022-11-24] MEDS: CELEcoxib 200 mg Capsule 400 MG PO (12:20)
[2022-11-24] MEDS: gabapentin 300 mg Capsule PO (12:20)
--- NOTE | 2022-11-24 12:25 | ANES.PREANE2 ---
Pre-Anesthetic Assessment Height/Weight: Height 1.57 m Weight 76.204 kg Temp Pulse Resp BP Pulse Ox O2 Del Method 97.0 F L 68 20 H 169/95 95 Room Air 11/24/22 11:47 11/24/22 11:47 11/24/22 11:47 11/24/22 11:47 11/24/22 11:47 11/24/22 11:47 Operation Date: 11/24/22 13:00 Proposed Procedures p RIGHT INDEX TRIGGER FINGER RELEASE [id number], M65.30(Right) - Emma Stone MD Familial anesthetic complications: none Was Beta Ml taken within 24 hours: Yes Was Clonidine taken within 24 hours: N/A Social No alcohol and No tobacco Exam alert, oriented x 3, clear to auscultation bilaterally and regular rate & rhythm Airway Submandibular: within normal limits Cervical ROM: within normal limits Mallampati: Class II Dentition: chipped Pulmonary Asthma CV/HEM Hypertension GI Gastroesophageal Reflux Disease Metabolic Diabetes Mellitus, Hyperlipidemia and Morbid Obesity Musc/skel Osteoarthritis/DJD Gout Anesthetic Plan ASA status: 3 Anesthesia: Choice Medications/Allergies Home Medications Medication Instructions Recorded Confirmed Last Taken Type acetaminophen 500 mg tablet 1,000 mg PO Q6H PRN Pain 09/30/20 11/24/22 11/23/22 History (Tylenol Extra Strength) metformin 500 mg tablet 500 mg PO BID 07/19/21 11/23/22 11/23/22 07:00 History albuterol sulfate 2.5 mg/3 mL 2.5 mg inhalation Q4H PRN 06/23/22 11/24/22 1 Year Ago History (0.083 %) solution for nebulization Shortness Of Breath ~11/24/21 amlodipine 5 mg tablet 5 mg PO DAILY #20 tabs 06/23/22 11/23/22 11/23/22 Rx aspirin 81 mg tablet,delayed 81 mg PO DAILY #30 tabs 06/23/22 11/23/22 11/23/22 Rx release multivitamin 1 tab PO DAILY PRN UNKNOWN 06/23/22 11/24/22 11/23/22 History naproxen sodium 220 mg tablet 440 mg PO Q12H PRN Pain 06/23/22 11/24/22 11/20/22 History (Aleve) fluticasone propionate 50 1 spray intranasal BID sinusitis 06/28/22 11/23/22 11/23/22 Rx mcg/actuation nasal #16 grams spray,suspension metoprolol succinate 100 mg 100 mg PO DAILY@07 #90 tabs 08/18/22 11/24/22 11/24/22 Rx tablet,extended release 24 hr 0700 cholestyramine (with sugar) 4 gram 4 ea PO DAILY #378 grams 10/18/22 11/23/22 11/23/22 Rx oral powder zolpidem 10 mg tablet 10 mg PO BEDTIME sleep #30 tabs 10/31/22 11/23/22 11/23/22 Rx hydrochlorothiazide 25 mg tablet 25 mg PO DAILY 11/23/22 11/23/22 11/23/22 History Allergies Allergy/AdvReac Type Severity Reaction Status Date / Time poliomyelitis vaccine,killed Allergy Unknown Verified 11/24/22 11:52 Current Medications Generic Name Dose Route Start Last Admin Trade Name Freq PRN Reason Stop Dose Admin Sodium Chloride 1,000 mls @ 30 mls/hr 11/24/22 11:45 11/24/22 12:10 Sodium Chloride 0.9% IV 11/25/22 11:44 30 mls/hr .Q24H CHAD Administration PFSH Anesthesia Medical History Allergies Chronic diarrhea DVT (deep venous thrombosis) GERD (gastroesophageal reflux disease) Gout Hypertension Insomnia Type 2 diabetes mellitus Surgical History H/O sinus surgery H/O varicose vein stripping H/O: hysterectomy History of hand surgery Status post laparoscopic cholecystectomy (~10/03/20) Family History Father CAD (coronary artery disease) Mother CAD (coronary artery disease) Other Heart disease Myocardial infarction Social History Smoking and tobacco status: never smoked Alcohol intake: current Alcohol intake frequency: holidays/special occasions only Substance/Drug Use: never Data Anesthesia Cardiac Studies: Echocardiogram Ultrasound 09/30/20 Sestamibi Stress Test (Cardiology) 01/31/20
[2022-11-24 12:28] LABS: Glucose Point of Care 129 mg/dL (70-110)
--- NOTE | 2022-11-24 12:29 | P.HPUD_ITS ---
Surgery/Procedure H&P Update DATE OF PROCEDURE: November 24, 2022 DATE H&P PERFORMED: 10/26/22 H&P UPDATE INFORMATION: I have reviewed H&P completed within last 30 days, I have examined patient prior to procedure, No changes to prior documentation and H&P is in [facility] [place] [place] EMR on date indicated PLANNED PROCEDURE: Operation Date: 11/24/22 13:00 Proposed Procedures p RIGHT INDEX TRIGGER FINGER RELEASE [id number], M65.30(Right) - Emma Stone MD Related Problem List Diagnoses (1) Trigger finger, right index finger:
[2022-11-24] MEDS: ceFAZolin 2,000 MG in sodium chloride 0.9% (plus) 50 ML 100 MG IV (12:38)
--- NOTE | 2022-11-24 13:21 | PC.NURSE ---
Pt arrived to PACU, awake, denies any pain or nausea at this time. Dressing to right wrist C/D/I, right fingers p/w/d, cap refill < 3 seconds, able to wiggle fingers. RUE elevated on pillow.
--- NOTE | 2022-11-24 13:39 | PC.NURSE ---
Blood pressures elevated, new orders received, will administer and monitor for effectiveness.
[2022-11-24] MEDS: hyDRALAzine 20 mg/mL INJ 1 mL 10 MG IVP (13:41)
--- NOTE | 2022-11-24 14:12 | P.OP_ITS ---
Operative Report Date of procedure: November 24, 2022 Pre-op diagnosis: Right trigger finger Post-op diagnosis: Right trigger finger Procedure done: Release right trigger finger Pathology: none sent Surgeon: Emma Stone Pocket Operator: None Anesthesia: General (Per LMA, ASA 2) Estimated blood loss (mL): 1 Tourniquet time (min): 14 (At 250 mmHg) IV fluids (mL): 500 Urine output (mL): 0 (No Rodrigues) Complications: None Findings: Inflamed tendons with no evidence of significant damage. Condition: stable Disposition: PACU (Then return to same-day surgery for discharge to home) Brief History: Lindsey Pinto presents today for right index finger release secondary to index finger triggering. Patient rates her pain at 7/10 preoperatively.? Patient states when she bends her index finger, it power down into her hand.? Patient states pain has been present for 2-3 months.? Procedure: Patient was brought to the operating theater.? She was placed on the operating room table.? General anesthesia per LMA, ASA 2 was administered without incident.? The patient was given 2 g of IV Ancef without reaction.? A tourniquet was placed high on the arm and was elevated following exsanguination. Tourniquet time was 14 minutes. Surgical pause was performed prior to commencement of the surgical procedure. At the time of the surgical pause we identified the site and side of surgery. We also identified the patient's identity and appropriate administration of IV antibiotics. Following the surgical pause, an incision was made along the distal palmar crease beneath the index finger. Dissection continued through the skin to the subcutaneous tissues using a scalpel. Blunt dissection was then utilized to spread soft tissues and allow access to the A1 ender. It was then incised longitudinally and sharply using a knife. This was accomplished without difficulty and atraumatically. Once the A1 ender was released, tendons were brought up out of the wound and evaluated. There were no gross masses on the tendons, but the A1 ender was noted to be quite inflamed with an actual cystic structure on it.? Tendons were returned to normal position. Aminimal proximal release was accomplished as well. We then irrigated the wound and subsequently closed it with 3-0 nylon with an interrupted mattress type suture. Following closure of the wound, the wound was injected with bupivacaine into the subcutaneous tissues as a local anesthetic. Sterile dressing was then placed consisting of OpSite, fluffed fluffs, sterile soft roll, and an Franklin wrap. The patient was returned to recovery in satisfactory condition.? She will be discharged home to follow-up with me in the office. There were no complications and no specimens. Related Problem List Diagnoses (1) Trigger finger, right index finger:
--- NOTE | 2022-11-24 15:42 | ANE.PACU2 ---
Inpatient post-anesthesia follow up: Airway intact: Yes Vital signs: Temperature 97.8 F Pulse Rate 64 Respiratory Rate 16 Blood Pressure 136/76 Pulse Oximetry 93 Oxygen Delivery Me thod Room Air Oxygen Flow Rate Fraction of Inspir ed Oxygen Hydration adequate: Yes Nausea and vomiting: No Pain level: 1 Mental status: Baseline
== END 2022-11-24 14:45 | disposition home or self-care (01) ==
PROVIDERS: PCP Family Medicine; Visit Provider Specialist
PROC: (CPT 26055; principal; 2022-11-24 13:00)
DX: M65.321 Trigger finger, right index finger (principal); J45.909 Unspecified asthma, uncomplicated; I10 Essential (primary) hypertension; K21.9 Gastro-esophageal reflux disease without esophagitis; E11.9 Type 2 diabetes mellitus without complications; E78.5 Hyperlipidemia, unspecified; E66.01 Morbid (severe) obesity due to excess calories; Z68.30 Body mass index [BMI] 30.0-30.9, adult; Z79.84 Long term (current) use of oral hypoglycemic drugs; Z79.82 Long term (current) use of aspirin; Z86.718 Personal history of other venous thrombosis and embolism
CPT/HCPCS: 26055; 36416; 82962; J0131; J0360; J0690; J1100; J2405; J2704; J3010; J3490; J7030

== ENCOUNTER → 2022-12-09 07:46 | Outpatient (BNVA) | payer MEDICARE, BC, SELFPAY | PROVIDERS: PCP Family Medicine; Visit Provider Nurse Practitioner Family | DX: M65.321 Trigger finger, right index finger (principal) | CPT/HCPCS: 99024 ==

== ENCOUNTER → 2023-01-13 09:38 | Outpatient (BNVA) | payer MEDICARE, BC, SELFPAY | PROVIDERS: PCP Family Medicine; Visit Provider Internal Medicine Cardiovascular Disease | DX: R06.09 Other forms of dyspnea (principal); I10 Essential (primary) hypertension; E11.9 Type 2 diabetes mellitus without complications; K21.9 Gastro-esophageal reflux disease without esophagitis; Z79.84 Long term (current) use of oral hypoglycemic drugs | CPT/HCPCS: 99214 ==

== ENCOUNTER 2023-02-01 12:44 | Outpatient (CLI) | payer MEDICARE, OTHER, BC, SELFPAY ==
--- NOTE | 2023-02-01 13:30 | CT_ITS ---
WS: [id number] CT chest wo con [id number] HISTORY: R91.1 - Solitary pulmonary nodule TECHNIQUE: Axial imaging performed through the thorax. Coronal and sagittal reformats are submitted. All CT scans at [facility] use at least one of these dose optimization techniques: automated exposure control; mA and/or kV adjustment per patient size (includes targeted exams where dose is mat ched to clinical indication); or iterative reconstruction. CONTRAST: None DLP: 280.64 mGy.cm COMPARISON: 01/07/2019 and 09/30/2020, 06/23/2022. Lungs and central airway: No interval change in the ovoid 10 mm noncalcified nodule superior segment LEFT lower lobe with adjacent satellite nodule. Stable since 2019. There is an additional 3 mm noncal cified nodule in the RIGHT lower lobe which is stable. Subsegmental atelectasis at the lung bases. Pleura: Normal. No pleural effusion. Heart and pericardium: Normal size heart with no pericardial effusion. Mediastinum and marley: No mediastinum or hilar adenopathy. Vessels: Mild atherosclerosis thoracic aorta with no aneurysm. Normal sized pulmonary artery. Chest wall and lower neck: No soft tissue masses. Upper abdomen: Small hiatal hernia. Normal size adrenal glands. Prior cholecystectomy. Osseous structures: Increase in thoracic kyphosis. Moderate thoracic spondylosis. RIGHT humeral head anchors from prior rotator cuff repair. IMPRESSION: 1. Bilateral lower lobe pulmonary nodules are stable since 2019. 2. No mediastinal or hilar adenopathy. 3. Mild atherosclerosis thoracic aorta. 4. Prior cholecystectomy.
--- NOTE | 2023-02-01 13:34 | CT_ITS ---
WS: [id number] CT ANGIOGRAM CEREBRAL AND CAROTID ARTERIES HISTORY: CEREBRAL ANEURYSM, NONRUPTURED TECHNIQUE: CT angiogram is performed of the carotid and cerebral arteries. During arterial injection imaging is obtained from the skull vertex to the aortic arch in 1.25 mm imaging. Coronal and sagittal reformats are submitted. Additional multi planar reformats of the carotid and cerebral arteries are submitted, MIP imaging also reviewed. NASCET criteria utilized. All CT scans at [facility] us e at least one of these dose optimization techniques: automated exposure control; mA and/or kV adjust ment per patient size (includes targeted exams where dose is matched to clinical indication); or iter ative reconstruction. CONTRAST: Omnipaque 350; 100 mL IV. DLP: 1185.91 mGy.cm COMPARISON: 06/23/2022 Carotid Angiogram: Right carotid: Common carotid artery: Arises normally from the innominate artery. Calcified plaque is mild throughou t but increasing towards the bifurcation. Internal carotid artery: Moderate calcified plaque at the bifurcation. 50% stenosis at the origin of the RIGHT ICA. In the proximal RIGHT ICA beyond the bifurcation is a very high-grade stenosis of grea ter than 70%. No interval change. External carotid artery: Patent. Left carotid: Common carotid artery: Arises near the base of the innominate. Mild plaque. Internal carotid artery: Scattered plaque. External carotid artery: Patent. Right vertebral artery: Mildly dominant. Small amount of plaque at the origin. Left vertebral artery: Arises directly from the arch. Mild plaque. No stenosis or occlusion. Subclavian arteries: Mild tortuosity and plaque. Upper thorax: Micronodule RIGHT upper lobe. Thyroid gland: Negative for Osseous structures: Moderate spondylitic changes. CEREBRAL ANGIOGRAM: Intracranial vertebral arteries: Increasing plaque but no high-grade stenosis. Dominant distal RIGHT vertebral artery. Basilar artery: No significant stenosis or occlusion. No aneurysm. Intracranial Internal carotid arteries: Increasing calcified plaque through the cavernous sinuses and supraclinoid carotids. Stenosis less than 50%. 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 The re is an adjacent smaller 3 mm aneurysm extending into the M2 segment. Neither of these aneurysms hav e changed in size or progressed. No thrombus. Normal RIGHT MCA. Anterior cerebral arteries and ACOM: Normal. Posterior cerebral arteries and PCOM's: Normal posterior cerebral arteries. Posterior communicating a rteries are small caliber but patent. Dural venous sinuses are normally enhancing. Mastoid air cells: Normal. Paranasal sinuses: Normal. Calvarium: Normal. IMPRESSION: 1. 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 Adjacent smaller 3 mm more distal MCA aneurysm is also stable. No new aneurysm. 2. Proximal RIGHT cervical ICA stenosis approaching 70%. 3. Moderate plaque in the cavernous and supraclinoid carotid arteries with stenosis near 50%. No pro gression.
[2023-02-01 13:43] LABS: Blood Urea Nitrogen 10 mg/dL (8-23)
[2023-02-01] MEDS: iohexol 350 mg/mL 500 mL Btl (per mL) IV (13:48)
== END 2023-02-01 12:45 | disposition home or self-care (01) ==
PROVIDERS: PCP Family Medicine; Visit Provider Nurse Practitioner Family
DX: I67.1 Cerebral aneurysm, nonruptured (principal); I65.21 Occlusion and stenosis of right carotid artery; R91.8 Other nonspecific abnormal finding of lung field; I70.0 Atherosclerosis of aorta
CPT/HCPCS: 70496; 70498; 71250; 82565; 84520; Q9967

== ENCOUNTER → 2023-02-03 11:57 | Outpatient (BNVA) | payer MEDICARE, BC, SELFPAY | PROVIDERS: PCP Family Medicine; Visit Provider Family Medicine | DX: E11.9 Type 2 diabetes mellitus without complications (principal); I10 Essential (primary) hypertension; M10.9 Gout, unspecified; Z13.6 Encounter for screening for cardiovascular disorders; M19.90 Unspecified osteoarthritis, unspecified site; I67.1 Cerebral aneurysm, nonruptured; I65.29 Occlusion and stenosis of unspecified carotid artery | CPT/HCPCS: 80053; 80061; 83036; 84550 ==

== ENCOUNTER → 2023-05-10 08:03 | Outpatient (BNVA) | payer MEDICARE, BC, SELFPAY | PROVIDERS: PCP Family Medicine; Referring Provider Nurse Practitioner Family; Visit Provider Specialist | DX: I67.1 Cerebral aneurysm, nonruptured (principal); I65.21 Occlusion and stenosis of right carotid artery; I65.22 Occlusion and stenosis of left carotid artery; E11.9 Type 2 diabetes mellitus without complications; I10 Essential (primary) hypertension | CPT/HCPCS: 99205 ==

== ENCOUNTER 2023-05-19 08:19 | Outpatient (CLI) | payer MEDICARE, BC, SELFPAY ==
--- NOTE | 2023-05-19 08:30 | CT_ITS ---
WS: [id number] CT ANGIOGRAM CEREBRAL AND CAROTID ARTERIES HISTORY: I67.1 - Cerebral aneurysm, nonruptured TECHNIQUE: CT angiogram is performed of the carotid and cerebral arteries. During arterial injection imaging is obtained from the skull vertex to the aortic arch in 1.25 mm imaging. Coronal and sagittal reformats are submitted. Additional multi planar reformats of the carotid and cerebral arteries are submitted, MIP imaging also reviewed. NASCET criteria utilized. All CT scans at [facility] us e at least one of these dose optimization techniques: automated exposure control; mA and/or kV adjust ment per patient size (includes targeted exams where dose is matched to clinical indication); or iter ative reconstruction. CONTRAST: Omnipaque 350; 100 mL IV. DLP: 1190.83 mGy.cm COMPARISON: 02/01/2023 Carotid Angiogram: Right carotid: Common carotid artery: Normally arises from the innominate artery. Calcified plaque in the bifurcatio n and distal common carotid artery. Internal carotid artery: Calcified plaque at the bifurcation. Narrowing of the lumen with a focal ulc erated plaque. Very similar to the prior study. Stenosis is calculated at 60%. Visually the stenosis appears more pronounced. There is a combination of ulcerated plaque and intimal thickening and calcif ication. Suspect the stenosis is 70 to 75%. External carotid artery: Patent. Left carotid: Common carotid artery: Small amount of plaque at the aortic arch. Internal carotid artery: Scattered plaque with no stenosis. External carotid artery: Patent. Right vertebral artery: Unremarkable. Left vertebral artery: Slightly dominant. Small amount of plaque at the origin of the vertebral arter y. Subclavian arteries: Arises directly from the aortic arch. Mild plaque. No stenosis. Upper thorax: Normal. Thyroid gland: Normal. Osseous structures: Facet joint arthritis. Moderate degenerative disc disease. C4 anterolisthesis by 3 mm. CEREBRAL ANGIOGRAM: Intracranial vertebral arteries: Atherosclerotic plaque but no stenosis. RIGHT vertebral artery is ve ry slightly dominant. Basilar artery: No significant stenosis or occlusion. No aneurysm. Intracranial Internal carotid arteries: Calcified plaque through the cavernous sinuses. There is a mo derate amount of plaque. Mild stenosis through the cavernous sinus. No occlusions. Stenosis estimated near 50% or just greater than 50% on the RIGHT. Middle cerebral arteries: No RIGHT MCA occlusion or aneurysm. Small amount of plaque proximally. Foca l narrowing involving the distal LEFT M1 segment. Centered in the trifurcation of the LEFT MCA is a 4 .3 x 4.5 mm slightly lobulated aneurysm which is unchanged in size. There is a slightly distal aneury sm measuring 3 mm extending into the proximal M2 segment. Both aneurysms are similar in size to the p rior exam. Anterior cerebral arteries and ACOM: Normal. Posterior cerebral arteries and PCOM's: Normal posterior cerebral arteries. Posterior communicating a rteries are small caliber but patent. Dural venous sinuses are normally enhancing. Mastoid air cells: Normal. Paranasal sinuses: Moderate mucous retention cyst in the RIGHT maxillary sinus. Calvarium: Normal. IMPRESSION: 1. 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 Adjacent smaller just di stal aneurysm measures 3 mm and is also stable. Aneurysms are stable since 06/23/2022. 2. No additional cerebral aneurysms. 3. High-grade stenosis RIGHT cervical carotid ICA. Ulcerated plaque with stenosis estimated 70 to 75 %. Very similar to the prior examination. 4. Moderate atherosclerotic plaque in the cavernous carotid arteries but no progression.
[2023-05-19 09:00] LABS: Blood Urea Nitrogen 18 mg/dL (8-23)
[2023-05-19] MEDS: iohexol 350 mg/mL 500 mL Btl (per mL) IV (09:09)
== END 2023-05-19 08:20 | disposition home or self-care (01) ==
LOC: RAD 08:20
PROVIDERS: PCP Family Medicine; Visit Provider Specialist
DX: I67.1 Cerebral aneurysm, nonruptured (principal); I65.21 Occlusion and stenosis of right carotid artery
CPT/HCPCS: 70496; 70498; 82565; 84520; Q9967

== ENCOUNTER 2023-06-15 05:07 | Emergency (ER) | payer MEDICARE, BC, OTHER, SELFPAY ==
[2023-06-15] VITALS (14 sets, daily range): BP systolic 154–193; BP diastolic 74–119; PULSE 65–78; RESP 13–71; TEMP 36.4; O2SAT 93–97
--- NOTE | 2023-06-15 05:10 | CTR_ITS ---
PROCEDURE INFORMATION: Exam: CT Head Without Contrast Exam date and time: 06/15/2023 5:11 AM Age: 83 years old Clinical indication: Weakness, extremity; Left; Additional info: Woke with left side weakness TECHNIQUE: Imaging protocol: Computed tomography of the head without contrast. Radiation optimization: All CT scans at this facility use at least one of these dose optimization techniques: automated exposure control; mA and/or kV adjustment per patient size (includes targeted exams where dose is matched to clinical indication); or iterative reconstruction. COMPARISON: CT angio headneck* [id number] 05/19/2023 9:02 AM RADIATION DOSE METRICS: Total DLP (mGy-cm): 1039.38 FINDINGS: Brain: No hemorrhage. Periventricular white matter lucency represents atherosclerotic encephalopathic changes. No mass effect. Cerebral ventricles: No ventriculomegaly. Ventricular prominence proportionate to the degree of atrophy observed. Paranasal sinuses: Mucosal thickening within the right maxillary sinus. Mastoid air cells: Visualized mastoid air cells are well aerated. Bones/joints: Unremarkable. No acute fracture. Soft tissues: Unremarkable. CT/CT head wo con* [id number] IMPRESSION: No acute intracranial abnormality.
--- NOTE | 2023-06-15 05:20 | XRR_ITS ---
PROCEDURE INFORMATION: Exam: XR Chest Exam date and time: 06/15/2023 5:32 AM Age: 83 years old Clinical indication: Other: Left side weakness; Prior surgery; Surgery date: 6+ months; Surgery type: Right shoulder TECHNIQUE: Imaging protocol: Radiologic exam of the chest. Views: 1 view. COMPARISON: CT chest con [id number] 02/01/2023 1:38 PM FINDINGS: Lungs: Unremarkable. No consolidation. Pleural spaces: Unremarkable. No pleural effusion. No pneumothorax. Heart/Mediastinum: See Vasculature finding. Vasculature: Slight cardiomegaly and uncoiling of the thoracic aorta each accentuated by the AP positioning. Bones/joints: Prior surgery involving the right shoulder. XR/XR chest 1V portable [id number] IMPRESSION: No acute cardiopulmonary disease.
--- NOTE | 2023-06-15 05:23 | ECG_ITS ---
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 Measurements Intervals [place] Rate: 76 P: 28 NH: 202 QRS: -25 QRSD: 132 T: 17 QT: 436 QTc: 492 Interpretive Statements SINUS RHYTHM BORDERLINE LEFT AXIS DEVIATION [QRS AXIS < -20] RIGHT BUNDLE BRANCH BLOCK [120+ ms QRS DURATION, UPRIGHT V1, 40+ ms S IN I/aVL/V4/V5/V6] Compared to ECG 06/23/2022 10:50:07 No significant changes Electronically Signed On 06-15-2023 13:03:07 [employer] by Chidi Saundesr M.D. [id number]
[2023-06-15 05:26] LABS: Basophils % 0.5 %; Eosinophils # 0.2 10^3/uL (0.0-0.8); Eosinophils % 2.5 %; Hematocrit 41.1 % (36-47); Lymphocytes # 3.3 10^3/uL (0.8-4.8); Lymphocytes % 43.7 %; Mean Corpuscular HGB Conc 34.3 g/dL (30-55); Mean Corpuscular Hemoglobin 32.1 pg (27-33); Mean Corpuscular Volume 93.6 fl (85-98); Mean Platelet Volume 11.2 fL (7.4-10.4); Monocytes # 0.8 10^3/uL (0.2-0.9); Monocytes % 10.3 %; Neutrophils # 3.21 10^3/uL (1.8-7.7); Neutrophils % 42.7 %; Nucleated Red Blood Cells % 0 %; Platelet Count 205 10^3/cmm (157-399); Red Blood Count 4.39 10^6/uL (3.85-5.65); Red Cell Distribution Width 13.2 % (12.1-15.1); White Blood Count 7.51 10^3/uL (3.29-11.43)
--- NOTE | 2023-06-15 05:31 | ED_ITS ---
Documented by User: Nathan Grider DO 06/15/23 05:35 HPI - Neuro Symptoms/Deficit 2 General: Chief Complaint: Neuro Symptoms/Deficit Stated Complaint: AMS Time Seen by Provider: 06/15/23 05:24 History of Present Illness: Patient presents to the ER by EMS with complaints of resolved left-sided leg and arm weakness slurred speech and facial droop. Patient noticed this about 335 when she woke up this morning. Patient went to bed about 830 9:00 and did not have the symptoms. Patient says when she got up she went to the bathroom and fell and her found her. Patient's unknown downtime but she does not think it was very long. Patient says she is followed by Dr. Yanez for small aneurysm in her brain. Patient is all back to normal with no complaints at this time. Patient does take 81 mg aspirin daily but no other anticoagulation. Patient is lying on the bed in no acute distress and is nontoxic in appearance. Review of Systems 2 General: Reports: 10 or more systems reviewed and unremarkable except in HPI and below PFSH ED 2 PFSH: Medical History Allergies Insomnia Gout Chronic diarrhea DVT (deep venous thrombosis) Hypertension Type 2 diabetes mellitus GERD (gastroesophageal reflux disease) Surgical History History of hand surgery Status post laparoscopic cholecystectomy (~10/03/20) H/O: hysterectomy H/O sinus surgery H/O varicose vein stripping Family History Father CAD (coronary artery disease) Mother CAD (coronary artery disease) Other Heart disease Myocardial infarction Social History Smoking and tobacco/nicotine status: never used tobacco/nicotine Alcohol intake: current Alcohol intake frequency: holidays/special occasions only Substance/Drug Use: never Physical Exam 2 Const: COMMON NORMALS: no acute distress, average body habitus, patient oriented x3, no limitations, healthy appearing, alert and well nourished HENMT: COMMON NORMALS: normocephalic, atraumatic, hearing grossly normal bilaterally, external ears normal, Normal external nose present, moist oral mucous membranes and oropharynx normal HEAD & SCALP: normocephalic and atraumatic NOSE: Normal external nose present EXTERNAL EAR: Yes external ears normal Eye: COMMON NORMALS: Equal, round and reactive pupils present, EOMs intact bilaterally, conjunctivae normal and no scleral icterus CONJUNCTIVA: Yes conjunctivae normal PUPIL: Yes Equal, round and reactive pupils present Neck/C-Spine: COMMON NORMALS: full ROM, no lymphadenopathy, supple, no meningeal signs, no JVD and Thyroid normal THYROID: Thyroid normal Chest: COMMONS NORMALS: normal inspection of the chest and normal palpation of entire chest wall Resp: COMMON NORMALS: normal respiratory effort, No retractions, No use of accessory muscles and clear to auscultation bilaterally AUSCULTATION: clear to auscultation bilaterally Cardio: COMMON NORMALS: no JVD, regular rate, regular rhythm, S1 normal heart sound present, S2 normal heart sound present, No gallops present (Cardio), No clicks present (Cardio), No murmurs present (Cardio) and No rub (Cardio) R ATE: regular rate RHYTHM: regular rhythm HEART SOUNDS: S1 normal heart sound present and S2 normal heart sound present GI: COMMON NORMALS: Normal to inspection, nondistended, normoactive bowel sounds present, Soft to palpation, non-tender, No hepatosplenomegaly present and no masses PALPATION: Yes Soft to palpation and Yes No hepatosplenomegaly present Extremity: NARRATIVE EXTREMITY EXAM: Equal strength bilateral upper extremities. Minimal weakness noted in left lower extremity compared to right. No other focal neurologic deficits noted. Neuro: COMMON NORMALS: patient oriented x3 SENSORIUM/ORIENTATION: Yes alert MENINGEAL SIGNS: Yes no meningeal signs Course 2 Vital Signs: Vital signs: Vital Signs Temperature 97.6 F 06/15/23 05:16 Pulse Rate 66 06/15/23 09:41 Respiratory Rate 17 06/15/23 09:41 Blood Pressure 181/92 06/15/23 09:41 Pulse Oximetry 94 06/15/23 09:41 Oxygen Delivery Me thod Room Air 06/15/23 09:41 MDM - Neuro Symptoms/Deficit Differential Diagnosis Likely transient cerebral ischemia; Unlikely carpal tunnel syndrome, convulsions, delirium, subarachnoid hemorrhage, peripheral neuropathy, cerebrovascular accident or multiple sclerosis Medical Records I reviewed the patient's medical records. Lab Data I reviewed the patient's lab results. 06/15/23 04:42 06/15/23 04:[address] 06/15/23 05:10 IMPRESSION: No acute intracranial abnormality. Chest X-Ray 06/15/23 05:20 IMPRESSION: No acute cardiopulmonary disease. Laboratory Results WBC 7.51 10^3/uL (3.29-11.43) 06/15/23 04:42 RBC 4.39 10^6/uL (3.85-5.65) 06/15/23 04:42 Hgb 14.10 g/dL (11.27-16.99) 06/15/23 04:42 Hct 41.1 % (36-47) 06/15/23 04:42 MCV 93.6 fl (85-98) 06/15/23 04:42 MCH 32.1 pg (27-33) 06/15/23 04:42 MCHC 34.3 g/dL (30-55) 06/15/23 04:42 RDW 13.2 % (12.1-15.1) 06/15/23 04:42 Plt Count 205 10^3/cmm (157-399) 06/15/23 04:42 MPV 11.2 fL (7.4-10.4) H 06/15/23 04:42 Neut % (Auto) 42.7 % 06/15/23 04:42 Lymph % (Auto) 43.7 % 06/15/23 04:42 Stone % (Auto) 10.3 % 06/15/23 04:42 Eos % (Auto) 2.5 % 06/15/23 04:42 Baso % (Auto) 0.5 % 06/15/23 04:42 Neut # (Auto) 3.21 10^3/uL (1.8-7.7) 06/15/23 04:42 Lymph # (Auto) 3.3 10^3/uL (0.8-4.8) 06/15/23 04:42 Stone # (Auto) 0.8 10^3/uL (0.2-0.9) 06/15/23 04:42 Eos # (Auto) 0.2 10^3/uL (0.0-0.8) 06/15/23 04:42 Baso # (Auto) 0.0 10^3/uL (0.0-0.1) 06/15/23 04:42 Nucleated RBC % (auto) 0 % 06/15/23 04:42 Nucleated RBCs # 0.0 /100WBC 06/15/23 04:42 PT 12.40 SECONDS (12.1-14.9) 06/15/23 04:42 INR 0.90 (0.8-1.2) 06/15/23 04:42 Sodium 140 mmol/L (136-145) 06/15/23 04:42 Potassium 4.0 mmol/L (3.5-5.1) 06/15/23 04:42 Chloride 102 mmol/L (98-107) 06/15/23 04:42 Carbon Dioxide 21 mmol/L (22-29) L 06/15/23 04:42 Anion Gap 21.0 (5-19) H 06/15/23 04:42 BUN 15 mg/dL (8-23) 06/15/23 04:42 Creatinine 0.6 mg/dL (0.5-0.9) 06/15/23 04:42 GFR Calculation Not Reportable 06/15/23 04:42 Glucose 171 mg/dL (65-115) H 06/15/23 04:42 Calculated Osmolality 295 mOsm/kg (285-295) 06/15/23 04:42 Calcium 9.4 mg/dL (8.5-10.5) 06/15/23 04:42 Magnesium 1.4 mg/dL (1.7-2.3) L 06/15/23 04:42 Total Bilirubin 0.4 mg/dL (0.15-1.2) 06/15/23 04:42 AST 47 U/L (0-32) H 06/15/23 04:42 ALT 55 U/L (0-33) H 06/15/23 04:42 Alkaline Phosphatase 35 U/L (35-105) 06/15/23 04:42 Creatine Kinase 29 U/L (26-192) 06/15/23 04:42 Troponin T Baseline 12 ng/L (0-10) H 06/15/23 04:42 Troponin T 120 Minute 12.14 ng/L (0-10) H 06/15/23 06:56 Delta Troponin T 0.14 ABS# (0-10) 06/15/23 06:56 C-Reactive Protein 4.0 mg/L (0.0-4.9) 06/15/23 04:42 Total Protein 7.7 g/dL (6.6-8.7) 06/15/23 04:42 Albumin 4.1 g/dL (3.5-5.2) 06/15/23 04:42 Globulin 3.6 g/dL (1.3-4.6) 06/15/23 04:42 TSH 3.06 uIU/mL (0.27-4.20) 06/15/23 04:42 All radiology interpretation(s) finalized by discharge EKG Data EKG 1: I personally reviewed and interpreted this EKG as follows: EKG interpretation date: 06/15/23 EKG interpretation time: 05:23 Prior EKG tracings: not available for review Interpretation: EKG showed ventricular rate 76 bpm, TX interval 202, QRS duration 132, QTc of 466, sinus rhythm, borderline left axis deviation, right bundle branch block Discharge Plan Discharge Patient Disposition: Home Clinical Impression: TIA (transient ischemic attack) Condition: Stable Prescriptions: No Action atorvastatin 40 mg tablet 40 mg PO DAILY Qty: 30 5RF metoprolol succinate 100 mg tablet extended release 24 hr 100 mg PO DAILY@07 Qty: 90 3RF allopurinol 100 mg tablet 100 mg PO DAILY Qty: 90 1RF zolpidem 10 mg tablet 10 mg PO BEDTIME Qty: 30 5RF acetaminophen [Tylenol Extra Strength] 500 mg Tablet 1,000 mg PO Q6H PRN (Reason: Pain) naproxen sodium [Aleve] 220 mg Tablet 440 mg PO Q12H PRN (Reason: Pain) aspirin 81 mg tablet,delayed release (DR/EC) 81 mg PO DAILY Qty: 30 0RF hydrochlorothiazide 25 mg tablet 25 mg PO DAILY metformin 500 mg tablet 500 mg PO BID cholestyramine (with sugar) 4 gram powder 4 ea PO QAM Discharge Orders: Discharge ED (Routine); Ordered 06/15/23 Ordered By: Heber Hartley Referrals: Song Moeller MD [Physician] - Bala Sen DO [Primary Care Provider] - Discharge Diet: Advance as tolerated Discharge Activity: Resume usual activity Patient Instructions: Opioid Safety, Pain Management Activity Restrictions/Additional Instructions: Activity Restrictions/Additional Instructions: Thank you for choosing [facility] for your healthcare needs today. Please realize that you were seen in the Emergency Department and that we are providing you with an emergency medical screening exam and this may not be a complete and all inclusive of all the testing and or medical work-up that you may need to determine your ailment or severity of your illness. It is very important that you follow-up as instructed with your Primary care provider or Specialist for additional evaluation and to discuss your medical treatment plan. You may return to the Emergency Department should you have concerns or if your condition changes or worsens in any way. I have contacted the cardio vascular surgeon Dr. Moeller and he will see you upon discharge from the emergency department. Coding Level of Care Code ED Carpenter Helper Maintenance for Chg Fwd Documented by User: Heber Hartley MD 06/15/23 10:06 HPI - Neuro Symptoms/Deficit 2 General: Chief Complaint: Neuro Symptoms/Deficit Stated Complaint: AMS Time Seen by Provider: 06/15/23 05:24 [facility] ED 2 PFSH: Medical History Allergies Insomnia Gout Chronic diarrhea DVT (deep venous thrombosis) Hypertension Type 2 diabetes mellitus GERD (gastroesophageal reflux disease) Surgical History History of hand surgery Status post laparoscopic cholecystectomy (~10/03/20) H/O: hysterectomy H/O sinus surgery H/O varicose vein stripping Family History Father CAD (coronary artery disease) Mother CAD (coronary artery disease) Other Heart disease Myocardial infarction Social History Smoking and tobacco/nicotine status: never used tobacco/nicotine Alcohol intake: current Alcohol intake frequency: holidays/special occasions only Substance/Drug Use: never Course 2 Vital Signs: Vital signs: Vital Signs Temperature 97.6 F 06/15/23 05:16 Pulse Rate 66 06/15/23 09:41 Respiratory Rate 17 06/15/23 09:41 Blood Pressure 181/92 06/15/23 09:41 Pulse Oximetry 94 06/15/23 09:41 Oxygen Delivery Me thod Room Air 06/15/23 09:41 MDM - Neuro Symptoms/Deficit Medical Decision Making I reviewed the patient's medical record with the outgoing ER physician Dr. Grider. I have reexamined the patient she remains asymptomatic and has been much improved since her initial presentation after reviewing the note I did contact the hospitalist physician Dr. Greene who requested I also at that time contact the neurologist who also requested that I contact the vascular surgeon. After speaking to Dr. Greene, Dr. Ogden, and Dr. Moeller-and discussing the plan of care with the patient I will discharge the patient at Dr. Moeller's request and have her follow-up in his office upon discharge from the emergency department today. After an extensive discussion with Dr. Greene and complete review of the patient's medical records and given Dr. Greene's concern for the carotid narrowing Dr. Greene has requested that I contact neurology for an additional evaluation and he also requested that I contact vascular surgery to discuss the patient's case. Lab Data 06/15/23 04:42 06/15/23 04:[address] 06/15/23 05:10 IMPRESSION: No acute intracranial abnormality. Chest X-Ray 06/15/23 05:20 IMPRESSION: No acute cardiopulmonary disease. Laboratory Results WBC 7.51 10^3/uL (3.29-11.43) 06/15/23 04:42 RBC 4.39 10^6/uL (3.85-5.65) 06/15/23 04:42 Hgb 14.10 g/dL (11.27-16.99) 06/15/23 04:42 Hct 41.1 % (36-47) 06/15/23 04:42 MCV 93.6 fl (85-98) 06/15/23 04:42 MCH 32.1 pg (27-33) 06/15/23 04:42 MCHC 34.3 g/dL (30-55) 06/15/23 04:42 RDW 13.2 % (12.1-15.1) 06/15/23 04:42 Plt Count 205 10^3/cmm (157-399) 06/15/23 04:42 MPV 11.2 fL (7.4-10.4) H 06/15/23 04:42 Neut % (Auto) 42.7 % 06/15/23 04:42 Lymph % (Auto) 43.7 % 06/15/23 04:42 Stone % (Auto) 10.3 % 06/15/23 04:42 Eos % (Auto) 2.5 % 06/15/23 04:42 Baso % (Auto) 0.5 % 06/15/23 04:42 Neut # (Auto) 3.21 10^3/uL (1.8-7.7) 06/15/23 04:42 Lymph # (Auto) 3.3 10^3/uL (0.8-4.8) 06/15/23 04:42 Stone # (Auto) 0.8 10^3/uL (0.2-0.9) 06/15/23 04:42 Eos # (Auto) 0.2 10^3/uL (0.0-0.8) 06/15/23 04:42 Baso # (Auto) 0.0 10^3/uL (0.0-0.1) 06/15/23 04:42 Nucleated RBC % (auto) 0 % 06/15/23 04:42 Nucleated RBCs # 0.0 /100WBC 06/15/23 04:42 PT 12.40 SECONDS (12.1-14.9) 06/15/23 04:42 INR 0.90 (0.8-1.2) 06/15/23 04:42 Sodium 140 mmol/L (136-145) 06/15/23 04:42 Potassium 4.0 mmol/L (3.5-5.1) 06/15/23 04:42 Chloride 102 mmol/L (98-107) 06/15/23 04:42 Carbon Dioxide 21 mmol/L (22-29) L 06/15/23 04:42 Anion Gap 21.0 (5-19) H 06/15/23 04:42 BUN 15 mg/dL (8-23) 06/15/23 04:42 Creatinine 0.6 mg/dL (0.5-0.9) 06/15/23 04:42 GFR Calculation Not Reportable 06/15/23 04:42 Glucose 171 mg/dL (65-115) H 06/15/23 04:42 Calculated Osmolality 295 mOsm/kg (285-295) 06/15/23 04:42 Calcium 9.4 mg/dL (8.5-10.5) 06/15/23 04:42 Magnesium 1.4 mg/dL (1.7-2.3) L 06/15/23 04:42 Total Bilirubin 0.4 mg/dL (0.15-1.2) 06/15/23 04:42 AST 47 U/L (0-32) H 06/15/23 04:42 ALT 55 U/L (0-33) H 06/15/23 04:42 Alkaline Phosphatase 35 U/L (35-105) 06/15/23 04:42 Creatine Kinase 29 U/L (26-192) 06/15/23 04:42 Troponin T Baseline 12 ng/L (0-10) H 06/15/23 04:42 Troponin T 120 Minute 12.14 ng/L (0-10) H 06/15/23 06:56 Delta Troponin T 0.14 ABS# (0-10) 06/15/23 06:56 C-Reactive Protein 4.0 mg/L (0.0-4.9) 06/15/23 04:42 Total Protein 7.7 g/dL (6.6-8.7) 06/15/23 04:42 Albumin 4.1 g/dL (3.5-5.2) 06/15/23 04:42 Globulin 3.6 g/dL (1.3-4.6) 06/15/23 04:42 TSH 3.06 uIU/mL (0.27-4.20) 06/15/23 04:42 Discharge Plan Discharge Patient Disposition: Home Clinical Impression: TIA (transient ischemic attack) Condition: Stable Prescriptions: No Action atorvastatin 40 mg tablet 40 mg PO DAILY Qty: 30 5RF metoprolol succinate 100 mg tablet extended release 24 hr 100 mg PO DAILY@07 Qty: 90 3RF allopurinol 100 mg tablet 100 mg PO DAILY Qty: 90 1RF zolpidem 10 mg tablet 10 mg PO BEDTIME Qty: 30 5RF acetaminophen [Tylenol Extra Strength] 500 mg Tablet 1,000 mg PO Q6H PRN (Reason: Pain) naproxen sodium [Aleve] 220 mg Tablet 440 mg PO Q12H PRN (Reason: Pain) aspirin 81 mg tablet,delayed release (DR/EC) 81 mg PO DAILY Qty: 30 0RF hydrochlorothiazide 25 mg tablet 25 mg PO DAILY metformin 500 mg tablet 500 mg PO BID cholestyramine (with sugar) 4 gram powder 4 ea PO QAM Discharge Orders: Discharge ED (Routine); Ordered 06/15/23 Ordered By: Heber Hartley Referrals: Song Moeller MD [Physician] - Bala Sen DO [Primary Care Provider] - Discharge Diet: Advance as tolerated Discharge Activity: Resume usual activity Patient Instructions: Opioid Safety, Pain Management Activity Restrictions/Additional Instructions: Activity Restrictions/Additional Instructions: Thank you for choosing [facility] for your healthcare needs today. Please realize that you were seen in the Emergency Department and that we are providing you with an emergency medical screening exam and this may not be a complete and all inclusive of all the testing and or medical work-up that you may need to determine your ailment or severity of your illness. It is very important that you follow-up as instructed with your Primary care provider or Specialist for additional evaluation and to discuss your medical treatment plan. You may return to the Emergency Department should you have concerns or if your condition changes or worsens in any way. I have contacted the cardio vascular surgeon Dr. Moeller and he will see you upon discharge from the emergency department. Coding Level of Care Code ED Carpenter Helper Maintenance for Karl Mario
[2023-06-15 05:48] LABS: Troponin(5th) Baseline 12 ng/L (0-10)
[2023-06-15 05:57] LABS: Alanine Aminotransferase 55 U/L (0-33); Albumin Level 4.1 g/dL (3.5-5.2); Alkaline Phosphatase 35 U/L (35-105); Aspartate Amino Transferase 47 U/L (0-32); Blood Urea Nitrogen 15 mg/dL (8-23); Calcium 9.4 mg/dL (8.5-10.5); Carbon Dioxide 21 mmol/L (22-29); Chloride 102 mmol/L (98-107); Globulin 3.6 g/dL (1.3-4.6); Glucose 171 mg/dL (65-115); Magnesium 1.4 mg/dL (1.7-2.3); Osmolality Calculated 295 mOsm/kg (285-295); Sodium 140 mmol/L (136-145); Thyroid Stimulating Hormone 3.06 uIU/mL (0.27-4.20); Total Bilirubin 0.4 mg/dL (0.15-1.2); Total Protein 7.7 g/dL (6.6-8.7)
[2023-06-15 06:10] LABS: Creatine Phosphokinase 29 U/L (26-192)
[2023-06-15 07:23] LABS: Troponin 5 2HR 12.14 ng/L (0-10); Troponin 5 2HR Delta 0.14 ABS# (0-10)
--- NOTE | 2023-06-15 07:25 | ECG_ITS ---
[facility] Test Date: 2023-06-15 Pat Name: Lindsey Pinto Department: Room: Gender: Female Ultrasonographer: : 1940 Requested By: Nathan Grider Order Number: [id number] Braulio MD: Chidi Saunders M.D. Measurements Intervals [place] Rate: 69 P: 24 AR: 190 QRS: -23 QRSD: 134 T: 17 QT: 454 QTc: 489 Interpretive Statements SINUS RHYTHM BORDERLINE LEFT AXIS DEVIATION [QRS AXIS < -20] RIGHT BUNDLE BRANCH BLOCK [120+ ms QRS DURATION, UPRIGHT V1, 40+ ms S IN I/aVL/V4/V5/V6] Compared to ECG 06/15/2023 05:23:31 No significant changes Electronically Signed On 06-15-2023 13:04:57 [employer] SPECIAL EDUCATOR by Chidi Saunders M.D. [id number]
--- NOTE | 2023-06-15 09:35 | P.CONIM_ITS ---
Providers/Reason For Consult 2 Consulting Physician/Specialty*: Devaughn Ogden MD neurology and epilepsy Reason for Consult*: Right cerebral TIA manifested as left-sided paralysis lasting for approximately 45 to 60 minutes after awakening from sleep around 3:35 AM on 06/15/2023. 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 Adjacent smaller just distal aneurysm measures 3 mm and is also stable. Aneurysms are stable since 06/23/2022. High-grade stenosis RIGHT cervical carotid ICA. Ulcerated plaque with stenosis estimated 70 to 75%. Very similar to the prior examination and moderate atherosclerotic plaque in the cavernous carotid arteries but no progression. The patient was reported to go to bed around 8:30 PM on 06/14/2023. The patient stated that she woke up to go to the bathroom around 3:35 AM on 06/15/2023 and fail secondary to left-sided paralysis. The patient was brought to the [facility] emergency room. According to the patient and the paralysis lasted for 45 to 60 minutes and resolved. In the emergency room the patient examination was nonfocal. In view of the reported high-grade right cervical internal carotid artery stenosis, a vascular consult was obtained as well as neurology consult. NIH score = 0. Note: Since the patient's NIH score =0 and the patient's last known well could not be determined, the patient was not a candidate for thrombolytics and no thrombolytics were administered. 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 every morning Extra strength Tylenol 1000 mg p.o. every 6 hours as needed Allopurinol 100 mg p.o. daily Lipitor 40 mg p.o. daily Cholestyramine (with sugar) for p.o. daily Hydrochlorothiazide 25 mg p.o. daily Metformin 500 mg p.o. twice daily Metoprolol ER 100 mg p.o. daily Naproxen 440 mg p.o. every 12 hours as needed Ambien 10 mg p.o. nightly Habits: None Family history: Remarkable for a father and mother with coronary atherosclerotic heart disease Review of Systems 2 General: Reports: 10 or more systems reviewed and unremarkable except in HPI and below Medications/Allergies Home Medications Medication Instructions Recorded Confirmed Last Taken Type acetaminophen 500 mg tablet 1,000 mg PO Q6H PRN Pain 09/30/20 06/15/23 11/23/22 History (Tylenol Extra Strength) aspirin 81 mg tablet,delayed 81 mg PO DAILY #30 tabs 06/23/22 06/15/23 06/14/23 Rx release naproxen sodium 220 mg tablet 440 mg PO Q12H PRN Pain 06/23/22 06/15/23 11/20/22 History (Aleve) metoprolol succinate 100 mg 100 mg PO DAILY@07 #90 tabs 08/18/22 06/15/23 06/14/23 Rx tablet,extended release 24 hr hydrochlorothiazide 25 mg tablet 25 mg PO DAILY 11/23/22 06/15/23 06/14/23 History allopurinol 100 mg tablet 100 mg PO DAILY uric acid #90 tabs 02/21/23 06/15/23 06/14/23 Rx zolpidem 10 mg tablet 10 mg PO BEDTIME sleep #30 tabs 04/11/23 06/15/23 06/14/23 Rx atorvastatin 40 mg tablet 40 mg PO DAILY #30 tabs 05/10/23 06/15/23 06/14/23 Rx cholestyramine (with sugar) 4 gram 4 ea PO QAM 06/15/23 06/15/23 06/14/23 History oral powder metformin 500 mg tablet 500 mg PO BID 06/15/23 06/15/23 06/14/23 History Allergies Allergy/AdvReac Type Severity Reaction Status Date / Time poliomyelitis vaccine,killed Allergy Unknown Verified 06/15/23 05:22 PFSH Acute 2 PFSH: Medical History Allergies Insomnia Gout Chronic diarrhea DVT (deep venous thrombosis) Hypertension Type 2 diabetes mellitus GERD (gastroesophageal reflux disease) Surgical History History of hand surgery Status post laparoscopic cholecystectomy (~10/03/20) H/O: hysterectomy H/O sinus surgery H/O varicose vein stripping Family History Father CAD (coronary artery disease) Mother CAD (coronary artery disease) Other Heart disease Myocardial infarction Social History Smoking and tobacco/nicotine status: never used tobacco/nicotine Alcohol intake: current Alcohol intake frequency: holidays/special occasions only Substance/Drug Use: never Vitals/I&O/Wt Last Vital Signs Temp 97.6 F 06/15/23 05:16 Pulse 69 06/15/23 09:01 Resp 71 H 06/15/23 09:01 BP 190/119 06/15/23 09:20 Pulse Ox 96 06/15/23 09:01 O2 Del Method Room Air 06/15/23 09:01 Physical Exam 2 Narrative: NIH score = 0 The patient is alert and oriented x 3. Speech fluent. Head normocephalic. Neck supple. Cranial nerves II through XII intact. Patient did display signs of cataract surgery bilaterally. Pupils equal round and reactive to light and accommodation. Extraocular movements intact. Motor examination 5/5 bilaterally. There was no drift. There was no ataxia in the upper or lower extremities. Deep tendon reflexes 1-2+ bilaterally. Plantar responses flexor bilaterally. There was no clonus. Sensory examination was intact to touch. There was no extinction on double sensory stimulation. Throat clear. Lungs clear. Heart regular rhythm and rate. Extremities revealed signs of varicose veins. There was no cyanosis or edema. Pulses 2-3+ bilaterally. Data 06/15/23 04:42 06/15/23 04:42 A&P Assessment and plan (1) TIA involving right internal carotid artery: Impression: 1. Right cerebral TIA manifested as left-sided paralysis lasting for 45 to 60 minutes, resolved 2. 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 Adjacent smaller just distal aneurysm measures 3 mm and is also stable. Aneurysms are stable since 06/23/2022. 3. High-grade stenosis RIGHT cervical carotid ICA. Ulcerated plaque with stenosis estimated 70 to 75%. 4. Moderate atherosclerotic plaque in the cavernous carotid arteries but no progression. 5. Hypertension 6. Type 2 diabetes mellitus Plan: 1. Recommend obtaining vascular surgery consult to evaluate patient for right carotid endarterectomy 2. Recommend increasing aspirin to 325 mg p.o. every morning with food while awaiting surgical consult to evaluate patient for right carotid endarterectomy surgery 3. Recommend discontinuing naproxen since patient experiences TIA 4. 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
== END 2023-06-15 10:23 | disposition home or self-care (01) ==
PROVIDERS: Emergency Medicine; Emergency Provider Internal Medicine; PCP Family Medicine
DX: G45.9 Transient cerebral ischemic attack, unspecified (principal); Z79.82 Long term (current) use of aspirin; Z79.84 Long term (current) use of oral hypoglycemic drugs; I10 Essential (primary) hypertension; E11.9 Type 2 diabetes mellitus without complications; G45.1 Carotid artery syndrome (hemispheric)
CPT/HCPCS: 36415; 70450; 71045; 80053; 82550; 83735; 84443; 84484; 85025; 85610; 86140; 93005; 99203; 99285

== ENCOUNTER 2023-06-20 12:44 | Inpatient (IN) | payer MEDICARE, BC, OTHER, SELFPAY ==
[2023-06-19 13:37] LABS: Basophils % 0.3 %; Eosinophils # 0.2 10^3/uL (0.0-0.8); Eosinophils % 1.5 %; Hematocrit 41.4 % (36-47); Lymphocytes # 3.4 10^3/uL (0.8-4.8); Lymphocytes % 34.9 %; Mean Corpuscular HGB Conc 34.5 g/dL (30-55); Mean Corpuscular Hemoglobin 31.9 pg (27-33); Mean Corpuscular Volume 92.4 fl (85-98); Mean Platelet Volume 10.6 fL (7.4-10.4); Monocytes % 10.2 %; Neutrophils # 5.15 10^3/uL (1.8-7.7); Neutrophils % 52.7 %; Nucleated Red Blood Cells % 0 %; Platelet Count 259 10^3/cmm (157-399); Red Blood Count 4.48 10^6/uL (3.85-5.65); Red Cell Distribution Width 12.8 % (12.1-15.1); White Blood Count 9.79 10^3/uL (3.29-11.43)
[2023-06-19 13:47] LABS: Add Urine Culture? No; Add Urine Microscopic? YES; Bacteria Urine 1+ /hpf; Bilirubin Urine Neg (Negative); Blood Urine Neg (Negative); Glucose Urine UA Norm (Normal); Ketones Urine Negative (Negative); Leukocyte Esterase Urine Negative (Negative); Nitrate Urine Negative (Negative); Protein Urine Neg (Negative); RBC Urine 0-4 /hpf (0-2); Specific Gravity, Urine 1.015 (1.005-1.030); Urine Appearance SL Hazy (CLEAR); Urine Color Yellow (Yellow); Urobilinogen Urine Norm (Negative); WBC Urine 0-4 /hpf (0-5); pH Urine 5 (5-7)
[2023-06-19 13:58] LABS: Anion Gap 21.3 (5-19); Blood Urea Nitrogen 23 mg/dL (8-23); Calcium 10.6 mg/dL (8.5-10.5); Carbon Dioxide 23 mmol/L (22-29); Chloride 99 mmol/L (98-107); Glucose 131 mg/dL (65-115); Osmolality Calculated 293 mOsm/kg (285-295); Potassium 4.3 mmol/L (3.5-5.1); Sodium 139 mmol/L (136-145)
--- NOTE | 2023-06-19 14:14 | P.ANESASSM_ITS ---
Pre-Anesthetic Assessment Height/Weight: Height 1.57 m Operation Date: 06/20/23 11:00 Proposed Procedures p right carotid 34550,I65.2 Inpatient(Right) - Song Moeller MD Was Beta Ml taken within 24 hours: Yes Was Clonidine taken within 24 hours: N/A Social No tobacco Exam alert and oriented x 3 Airway Submandibular: within normal limits Cervical ROM: within normal limits Mallampati: Class II History/ROS No significant history except as noted and No significant complaints CV/HEM Hypertension GI Gastroesophageal Reflux Disease Metabolic Diabetes Mellitus and Hyperlipidemia Neuropsych Transient Ischemic Attack TIA 06/2023 - L sided weakness Anesthetic Plan ASA status: 3 Anesthesia: General Other: 2 PIVs, a-line Risk of > 500 ml blood loss (7ml/kg in children): Yes, adequate IV access and fluids planned Medications/Allergies Home Medications Medication Instructions Recorded Confirmed Last Taken Type acetaminophen 500 mg tablet 1,000 mg PO Q6H PRN Pain 09/30/20 06/19/23 11/23/22 History (Tylenol Extra Strength) naproxen sodium 220 mg tablet 440 mg PO Q12H PRN Pain 06/23/22 06/19/23 11/20/22 History (Aleve) metoprolol succinate 100 mg 100 mg PO DAILY@07 #90 tabs 08/18/22 06/19/23 06/19/23 Rx tablet,extended release 24 hr hydrochlorothiazide 25 mg tablet 25 mg PO DAILY 11/23/22 06/19/23 06/19/23 History allopurinol 100 mg tablet 100 mg PO DAILY uric acid #90 tabs 02/21/23 06/19/23 06/14/23 Rx zolpidem 10 mg tablet 10 mg PO BEDTIME sleep #30 tabs 04/11/23 06/19/23 06/18/23 Rx atorvastatin 40 mg tablet 40 mg PO DAILY #30 tabs 05/10/23 06/19/23 06/18/23 Rx aspirin 81 mg tablet,delayed 162 mg PO DAILY 06/15/23 06/19/23 06/19/23 History release cholestyramine (with sugar) 4 gram 4 ea PO QAM 06/15/23 06/19/23 06/18/23 History oral powder metformin 500 mg tablet 500 mg PO BID 06/15/23 06/19/23 06/19/23 History Allergies Allergy/AdvReac Type Severity Reaction Status Date / Time poliomyelitis vaccine,killed Allergy Unknown Verified 06/15/23 10:41 [facility] Anesthesia Medical History Allergies Insomnia Gout Chronic diarrhea DVT (deep venous thrombosis) Hypertension Type 2 diabetes mellitus GERD (gastroesophageal reflux disease) Surgical History History of hand surgery Status post laparoscopic cholecystectomy (~10/03/20) H/O: hysterectomy H/O sinus surgery H/O varicose vein stripping Family History Father CAD (coronary artery disease) Mother CAD (coronary artery disease) Other Heart disease Myocardial infarction Social History Smoking and tobacco/nicotine status: never used tobacco/nicotine Alcohol intake: current Alcohol intake frequency: holidays/special occasions only Substance/Drug Use: never Data Anesthesia 06/19/23 13:15 06/19/23 13:15 Short CBC 06/19/23 Range/Units 13:15 WBC 9.79 (3.29-11.43) 10^3/uL Hgb 14.30 (11.27-16.99) g/dL Hct 41.4 (36-47) % MCV 92.4 (85-98) fl Plt Count 259 (157-399) 10^3/cmm Neut % (Auto) 52.7 % Neut # (Auto) 5.15 (1.8-7.7) 10^3/uL BMP 06/19/23 13:15 Sodium 139 Potassium 4.3 Chloride 99 Carbon Dioxide 23 BUN 23 Creatinine 0.7 Glucose 131 H Calcium 10.6 H Urine 06/19/23 Range/Units 11:25 Urine Color Yellow (Yellow) Urine Appearance Sl hazy A (CLEAR) Urine pH 5 (5-7) Ur Specific [place] 1.015 (1.005-1.030) Urine Protein Neg (Negative) Urine Glucose (UA) Norm (Normal) Urine Ketones Negative (Negative) Urine Nitrate Negative (Negative) Urine Bilirubin Neg (Negative) Ur Leukocyte Esterase Negative (Negative) Urine RBC 0-4 H (0-2) /hpf Urine WBC 0-4 H (0-5) /hpf Cardiac Studies: 2 Echocardiogram Ultrasound 09/30/20 Sestamibi Stress Test (Cardiology) 01/30
[2023-06-20] VITALS (61 sets, daily range): BP systolic 111–188; BP diastolic 64–117; PULSE 72–86; RESP 14–29; TEMP 35.9–36.7; O2SAT 89–100; BMI 31.4
--- NOTE | 2023-06-20 06:22 | W.PM.OPSUD ---
Surgery/Procedure H&P Update DATE OF PROCEDURE: June 20, 2023 DATE H&P PERFORMED: 06/15/23 H&P UPDATE INFORMATION: I have reviewed H&P completed within last 30 days, I have examined patient prior to procedure and No changes to prior documentation CHANGES TO PREVIOUS DOCUMENTATION: Details and risk of surgery again carefully and frankly discussed. All questions answered. She is eager to proceed. We again discussed her increased risk related to her recent TIA which may demonstrate an unstable carotid plaque as well as her advanced age. She stated understanding. PREOP DIAGNOSIS: Right cervical carotid artery stenosis with TIA PLANNED PROCEDURE: Operation Date: 06/20/23 07:00 Proposed Procedures p right carotid 42170,I65.2 Inpatient(Right) - Song Moeller MD
[2023-06-20 06:38] LABS: Glucose Point of Care 176 mg/dL (70-110)
[2023-06-20] MEDS: sodium chloride 0.9% 1,000 ML 30 ML IV (06:40)
[2023-06-20] MEDS: ceFAZolin 2,000 MG in sodium chloride 0.9% (plus) 50 ML 100 MG IV (07:02)
[2023-06-20] MEDS: lidocaine 1% INJ 10 mL (per mL) XX (08:15)
[2023-06-20] MEDS: vancomycin 1,000 MG SDV 1000 MG IRRIGATION (08:15)
[2023-06-20] MEDS: heparin, porcine 1,000 unit/mL INJ 10 mL 1000 UNIT IRRIGATION (08:16)
--- NOTE | 2023-06-20 08:54 | PC.NURSE ---
Notified family at start of case that procedure was beginning at 0801.
--- NOTE | 2023-06-20 09:10 | PC.NURSE ---
Updated patient on patient's status at this time. Patient doing well, procedure ongoing.
--- NOTE | 2023-06-20 10:20 | PC.NURSE ---
Notified patient's , Johnathan, that Dr. Moeller was beginning to close case.
--- NOTE | 2023-06-20 10:37 | PC.NURSE ---
Called report to Frankie Kaye RN in ICU. Patient going to ICU 1.
--- NOTE | 2023-06-20 11:14 | ANES.PROC ---
Anesthesia Procedures Procedure/Date: 06/20/23 Arterial Line: Time Out Performed: Yes Consent: risks and benefits reviewed and patient agrees to proceed Size (Gauge): 20 Technique Used: guide wire technique Post-Procedure: dry sterile dressing placed Patient Tolerated Procedure: well and no complications Complications: none Site: right and radial Additional Comments: Line monitored
--- NOTE | 2023-06-20 11:45 | P.OP_ITS ---
Operative Report Date of procedure: June 20, 2023 Pre-op diagnosis: High-grade right internal carotid artery stenosis with ulceration and history of right hemispheric TIA last week Post-op diagnosis: same Procedure done: Right carotid endarterectomy with patch angioplasty Specimens removed/disposition: Right carotid artery plaque Surgeon: Song Moeller MD Estimated blood loss (mL): 200 Complications: Delayed return of motor function to the left side, though is continuing to improve upon transfer to the ICU with near complete recovery of the left lower extremity and improving strength to the left upper extremity. Findings: Friable and ulcerated right carotid artery plaque Condition: stable Brief History: Ms. Pitno is a short statured obese 83-year-old female who has been referred to our service last week after presenting to the emergency department on the same day, June 15 with left-sided profound weakness upon awakening at 2:30 AM. After approximately 2 hours, her weakness resolved and septic evaluations revealed a high-grade and ulcerated right internal carotid artery stenosis. We were able to see Ms. Pinto on the same day as her presentation to the emergency department and subcu recommended an expeditious carotid endarterectomy to reduce her stroke risk. Increased risk of surgery related to advanced age and recent neurologic event were carefully and frankly discussed with her, her , and her daughter. All questions were answered. Proper consents have been reviewed and signed. Procedure: Ms. Pinto was placed on the OR table and underwent general endotracheal anesthesia with a neurological monitoring endotracheal tube as well as placement of a right radial arterial line. Bihemispheric monitoring pads were placed as well as grounding and sensing pads for nerve conduction evaluation during neck dissection.The entire upper chest and right neck were sterilely prepped and draped. Appropriate timeout was completed and confirmed by all surgical team members present. Incision was made along the anterior border of the sternoma stoid muscle and carried down to the platysma with cautery. Dissection from this point forward was carried out utilizing Metzenbaum scissors and limited use of bipolar cautery. The internal jugular vein was dissected free and the facial vein was ligated, oversewn, and divided. Dissection was continued down through the ansa cervicalis with preservation of major branches. Minor branches were divided if required to allow for adequate exposure. Nerve conduction evaluation was performed throughout the dissection for protection of the recurrent nerve. He was noted to recurrent nerve appeared to be intimately involved with the posterior aspect of the facial vein and had to be dissected free carefully to allow for transection of the facial vein for appropriate exposure to this high right ICA lesion. The nerve then traversed along the posterior lateral aspects of the right ICA and again had to be carefully dissected free from this area to allow for appropriate control of this vessel. Great care was taken to minimize retraction on this nerve, though some did occur. We subsequently reached the common carotid artery. Dissection was then continued proximally to distally across the bifurcation. Vessel loops were placed around the common carotid artery, internal carotid artery, and external carotid artery. Distally, the base of the hypoglossal nerve could be identified and was protected. The internal carotid artery disease went high and extended above the level of the mandibular angle and up to the level of the hypoglossal nerve. This did require traction in this region, but great care was taken to minimize pressure to the hypoglossal nerve, which was protected. Care was taken during this dissection to avoid injury to the vagus nerve. The patient was then heparinized with 10,000 units. The systolic blood pressure was elevated to 160. Following this, in a rapid sequenced fashion, the distal internal carotid artery was clamped followed by clamping of the common carotid artery and external carotid artery. #11 scalpel blade was used to open the common carotid artery proximally. Blackburn scissors were then utilized to extend this arteriotomy across the distal common carotid artery and ulcerated very stenotic plaque and continue this further at the bifurcation across the calcific plaque in the internal carotid artery until we had reached normal intima. The internal carotid artery clamp was briefly flashed with evidence of brisk back bleeding, therefore we elected not to shunt. It should be noted that bi- hemispheric oximetry was recorded throughout the procedure. Next, a freer elevator was utilized to create a dissection plane the plaque from intima at the proximal portion of the arteriotomy. The plaque was friable and did fracture in several places. This was then divided with a #11 scalpel blade. This plaque was then further dissected along the intimal plane proximally to distally across the bifurcation. Utilizing an everting technique, plaque was removed from the external carotid artery with brisk flow. This plaque was then dissected free up the internal carotid artery to a feathered edge. Heparinized saline solution was utilized to remove any loose debris. Next, a Hemashield patch was brought into the field and sewn into position utilizing a running 6-0 Prolene suture, thereby completing our patch angioplasty. At the completion of the patch, the external carotid artery was opened followed by the common carotid artery and finally the internal carotid artery, thereby reestablishing cerebral flow. Areas of extravasation were repaired with 6-0 Prolene suture. After 5 minutes, heparin was reversed with protamine. Hemostasis was confirmed. The wound was irrigated with antibiotic solution. A small, flat, Jeffery-Devi drain was placed in the wound and connected to bulb suction. Sponge and needle count was correct. The wound was then closed in 2 layers of 3-0 Vicryl suture. Skin was reapproximated in a subcuticular manner with 4-0 Monocryl suture. A pressure dressing was then applied. Ms. Pinto was awakened from anesthesia and slowly regained spontaneous and on command movements, initially of her right side and then later on her left side with some weakness noted in the left arm though is continuing to improve upon arrival to the ICU. I did mitochondrial disorders counselor with the family at completion of the procedure. Ms. Pinto will be monitored in the ICU for the next 24 hours.
[2023-06-20] MEDS: lactated ringers 1,000 ML 100 ML IV (12:51)
[2023-06-20 13:04] LABS: Glucose Point of Care 245 mg/dL (70-110)
[2023-06-20] MEDS: insulin lispro 100 unit/1 mL SUBCUT ×3 (13:19→20:15)
[2023-06-20] MEDS: aspirin 81 mg Chew Tablet PO (13:27)
--- NOTE | 2023-06-20 13:57 | P.PN_ITS ---
Subjective 2 Subjective: Status post right CEA secondary to right cervical carotid stenosis and ulcerated plaque earlier today with history of TIA last week Ms. Pinto is in good spirits and appears to have returned to near baseline. She does have some slight hoarseness in her voice though this is not exceptional and she is taking liquids without difficulties. This would not be surprising given the amount of retraction required and mobilization of the recurrent laryngeal nerve in order to gain exposure to the high portion of the right ICA related to her high right carotid lesion. Vitals/I&O/Wt Last Vital Signs Temp 96.7 F L 06/20/23 13:30 Pulse 82 06/20/23 13:30 Resp 21 H 06/20/23 13:30 BP 184/100 06/20/23 13:30 Pulse Ox 99 06/20/23 13:30 O2 Del Method Nasal Cannula 06/20/23 13:37 O2 Flow Rate 3 06/20/23 13:30 06/19/23 06/20/23 06/20/23 22:59 06:59 14:59 Intake Total 50 / 50 Output Total 950 / 950 Balance -900 / -900 Weight last 48 hrs Weight 182 lb 2 oz Weight 172 lb Physical Exam 2 Neuro: OTHER: Leg strength is equal bilaterally. There is some mild weakness of the left upper extremity though there is discomfort at the shoulder which is also felt to be related to a history of arthritis. Range of motion of the left upper extremity appears to be related to discomfort in the left shoulder. Urinary Catheter Management: Rodrigues: Cath Placed During This Visit: yes Urinary Catheter Date of Insertion: 06/20/23 Urinary Catheter Time of Insertion: 07:40 Data 06/19/23 13:15 06/19/23 13:15 A&P Assessment and plan (1) Status post carotid endarterectomy: Plan Due to continued left hip pain following her fall from last week, I will schedule a left hip x-ray 2 views tomorrow morning. Will also place a consultation for physical therapy to assist with assessment. If MARY CARMEN drain output remains low I will plan to discontinue tomorrow morning. We will then assess the possibility of transferring to the floor for continued recovery. Attestations 2 Medical Necessity Statement*: Status post right carotid endarterectomy with history of right hemispheric TIA last week. Procedures Arterial Line Size (Gauge): 20 Coding Level of Care Code Acute Code for Chg Fwd Diagnoses Status post carotid endarterectomy Z98.890 Time Spent (min) 20
[2023-06-20] MEDS: ceFAZolin 1,000 MG in sodium chloride 0.9% (plus) 50 ML 100 MG IV ×2 (15:07→22:06)
[2023-06-20] MEDS: amlodipine 10 mg Tablet PO (15:23)
[2023-06-20 16:45] LABS: Glucose Point of Care 209 mg/dL (70-110)
--- NOTE | 2023-06-20 16:53 | ANE.PACU2 ---
Inpatient post-anesthesia follow up: Airway intact: Yes Vital signs: Temperature 97.9 F Pulse Rate 81 Respiratory Rate 19 Blood Pressure 165/91 Pulse Oximetry 98 Oxygen Delivery Me thod Nasal Cannula Oxygen Flow Rate 3 Fraction of Inspir ed Oxygen Hydration adequate: Yes Nausea and vomiting: No Pain level: 2 Mental status: Baseline
[2023-06-20] MEDS: phenol oral Spray 177 mL 3 SPRAY MUCOUS MEM ×2 (17:23→23:15)
[2023-06-20 20:09] LABS: Glucose Point of Care 202 mg/dL (70-110)
[2023-06-20] MEDS: HYDROcodone-acetaminophen 5-325 mg Tablet 1 TAB PO (20:14)
[2023-06-20] MEDS: temazepam 15 mg Capsule PO (20:53)
[2023-06-20] MEDS: morphine 4 mg/mL SDV 1 mL 2 MG IVP (22:05)
[2023-06-20] MEDS: diphenhydrAMINE 25 mg Capsule PO (23:18)
[2023-06-21] VITALS (96 sets, daily range): BP systolic 96–180; BP diastolic 58–114; PULSE 66–92; RESP 13–30; TEMP 36.4–37.2; O2SAT 90–99; BMI 31.2
[2023-06-21] MEDS: lactated ringers 1,000 ML 100 ML IV (01:23)
--- NOTE | 2023-06-21 04:00 | ECG_ITS ---
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 Measurements Intervals [place] Rate: 74 P: 10 MT: 197 QRS: -26 QRSD: 138 T: -11 QT: 455 QTc: 508 Interpretive Statements SINUS RHYTHM WITH OCCASIONAL SUPRAVENTRICULAR PREMATURE COMPLEXES BORDERLINE LEFT AXIS DEVIATION [QRS AXIS < -20] RIGHT BUNDLE BRANCH BLOCK [120+ ms QRS DURATION, UPRIGHT V1, 40+ ms S IN I/aVL/V4/V5/V6] Compared to ECG 06/15/2023 07:25:47 No significant changes Electronically Signed On 06-21-2023 19:00:56 GYN PHYSICIAN by Chidi Saunders M.D. [id number]
--- NOTE | 2023-06-21 04:08 | XRR_ITS ---
PROCEDURE INFORMATION: Exam: XR Chest Exam date and time: 06/21/2023 4:21 AM Age: 83 years old Clinical indication: Chest wall pain; Additional info: Chest pain TECHNIQUE: Imaging protocol: Radiologic exam of the chest. Views: 1 view. COMPARISON: CR (CHEST, ) 06/15/2023 5:32 AM FINDINGS: Lungs: No CHF/pulmonary edema. Mild left lower lung opacities could represent atelectasis or pneumonitis. Please correlate clinically. Visible lungs otherwise appear essentially clear. Pleural spaces: No visible pneumothorax. No definite pleural fluid. Heart/Mediastinum: Mild cardiomegaly. Bones/joints: No significant acute finding. XR/XR chest 1V portable [id number] IMPRESSION: 1. Mild left lower lung opacities, see above. 2. Other findings discussed above.
--- NOTE | 2023-06-21 04:22 | PC.NURSE ---
Chest Pain Patient complaining of chest pain on her right side at a 7 on a 1-10 numerical pain scale. When asking patient what pain feels like, patient states it feels like a great heaviness. Patient denies nausea, shortness of breath, and any radiating pain. EKG obtained. Dr. Moy notified; order received for chest xray.
[2023-06-21] MEDS: morphine 4 mg/mL SDV 1 mL 2 MG IVP (04:31)
[2023-06-21] MEDS: alum-mag-hydroxide-sime 30 mL UDC PO (05:53)
--- NOTE | 2023-06-21 06:01 | P.PN_ITS ---
Subjective 2 Subjective: Postop day #1 status post right carotid endarterectomy with patch angioplasty. Ms. Pinto had a really good night though she stated she did have difficulty sleeping. She has complained of some generalized chest discomfort, more so to the right side than central. Initial EKG is unremarkable. She has no arrhythmias noted. O2 saturation 97% on room air. I will obtain a CBC/BMP/troponin this morning though she has had a prior negative stress test, in January 2020. Neurologically, she is unchanged and appears to be at baseline. She does have some difficulties with her left upper extremity though this is unchanged from preop. Vitals/I&O/Wt Last Vital Signs Temp 98 F 06/21/23 04:30 Pulse 72 06/21/23 04:15 Resp 18 06/21/23 04:31 BP 155/73 06/21/23 04:15 Pulse Ox 95 06/21/23 04:31 O2 Del Method Room Air 06/21/23 04:00 O2 Flow Rate 3 06/20/23 13:30 06/20/23 06/20/23 06/21/23 14:59 22:59 06:59 Intake Total 1050 / 1050 1287 / 2337 50 / 2387 Output Total 950 / 950 1270 / 2220 15 / 2235 Balance 100 / 100 17 / 117 35 / 152 Weight last 48 hrs Weight 182 lb 2 oz Weight 172 lb Physical Exam 2 Neck/C-Spine: OTHER: Low MARY CARMEN drain output. MARY CARMEN drain was discontinued. Incision line is clean, dry, and intact. New dressing was applied. Neuro: OTHER: Neurologically, she is at baseline. She does have a slight drift of her tongue to the right with protrusion. This was noted postoperatively and I feel is related to retraction over the hypoglossal nerve due to the high right ICA lesion and the exposure required. I phonation may be slightly hoarse but this is not dramatic and again I think is related to retraction. Her recurrent laryngeal nerve was visualized throughout its entire course during dissection and was noted to be intimately involved with a facial vein and did require meticulous dissection to allow for ligation of the facial vein for further carotid exposure. Urinary Catheter Management: Rodrigues: Cath Placed During This Visit: yes Reason for Continuing Indwelling Catheter: Accurate Measurement of Urinary Output in Critically Ill Patients Urinary Catheter Date of Insertion: 06/20/23 Urinary Catheter Time of Insertion: 07:40 Data 06/19/23 13:15 06/19/23 13:15 A&P Assessment and plan (1) Status post carotid endarterectomy: Postop day #1 status post right carotid endarterectomy. We will initiate physical therapy today. Also will order CBC, BMP, and troponin level this morning. She has a left hip x-ray scheduled for this morning as well because of persistent discomfort after her fall last week during her TIA. I will recommend continued hospitalization for another 24 hours while we continue assessments and initiate physical therapy. She states that her has previously refused to allow for in-home nursing visits. I will hopefully be able to have a further conversation with him today as I think this would be beneficial for Mrs. Pinto's recovery. Attestations 2 Medical Necessity Statement*: Postop day #1 status post right carotid endarterectomy Procedures Arterial Line Size (Gauge): 20 Coding Level of Care Code Acute Code for Chg Fwd Diagnoses Status post carotid endarterectomy Z98.890
[2023-06-21] MEDS: ceFAZolin 1,000 MG in sodium chloride 0.9% (plus) 50 ML 100 MG IV (06:31)
--- NOTE | 2023-06-21 06:59 | PC.NURSE ---
Physician at Bedside Dr. Moy at bedside and MARY CARMEN drain removed from neck. Chest pain discussed; maalox administered per Dr. Moy. Following drain removal, dressing saturated with serosanguinous drainage, dressing replaced with 2x2 and clear dressing.
[2023-06-21 07:39] LABS: Glucose Point of Care 161 mg/dL (70-110)
[2023-06-21 07:49] LABS: Mean Corpuscular HGB Conc 33.9 g/dL (30-55); Mean Corpuscular Hemoglobin 32.2 pg (27-33); Mean Platelet Volume 10.2 fL (7.4-10.4); Platelet Count 220 10^3/cmm (157-399); Red Blood Count 3.79 10^6/uL (3.85-5.65); Red Cell Distribution Width 13.1 % (12.1-15.1); White Blood Count 11.38 10^3/uL (3.29-11.43)
--- NOTE | 2023-06-21 08:00 | XR_ITS ---
WS: [id number] XR hip LT 2-3V wo/w pel* [id number] REASON FOR EXAM: left hip pain last week after fall during TIA FINDINGS: No fracture or focal bone lesion. Moderate narrowing of the joint space. Moderate subchondral sclerosis and osteophytosis of the acetab ulum and femoral head. IMPRESSION: Moderate osteoarthritis of the left hip. No acute abnormality.
[2023-06-21 08:12] LABS: Total Cells Counted 100 (0-100)
[2023-06-21 08:17] LABS: Troponin T (5th) Once 12 ng/L (0-10)
[2023-06-21 08:20] LABS: Absolute Neutrophil 7.5 10^3/cmm (1.4-6.5); Absolute Segmented Neutrophil 7.5 10/cmm (1.6-7.1); Anion Gap 15.7 (5-19); Blood Urea Nitrogen 12 mg/dL (8-23); Calcium 9.2 mg/dL (8.5-10.5); Carbon Dioxide 25 mmol/L (22-29); Chloride 102 mmol/L (98-107); Eosinophils 0 %; Glucose 172 mg/dL (65-115); Lymphocytes 19 %; Lymphocytes Absolute 3.2 10^3/cmm (1.2-3.4); Monocytes Absolute 0.7 10^3/cmm (0.1-0.6); Osmolality Calculated 292 mOsm/kg (285-295); Platelet Estimate Normal (Normal); Potassium 3.7 mmol/L (3.5-5.1); Segmented Neutrophils 66 %; Sodium 139 mmol/L (136-145)
[2023-06-21] MEDS: allopurinol 100 mg Tablet PO (08:57)
[2023-06-21] MEDS: aspirin 81 mg EC Tablet 162 MG PO (08:57)
[2023-06-21] MEDS: atorvastatin 40 mg Tablet PO (08:57)
[2023-06-21] MEDS: insulin lispro 100 unit/1 mL SUBCUT ×4 (08:57→20:39)
[2023-06-21 10:58] LABS: Glucose Point of Care 164 mg/dL (70-110)
[2023-06-21 16:16] LABS: Troponin T (5th) Once 12 ng/L (0-10)
[2023-06-21 16:32] LABS: Glucose Point of Care 164 mg/dL (70-110)
--- NOTE | 2023-06-21 16:54 | PM.PN ---
Subjective Subjective: Ms. Chau is doing well this afternoon. and are present for a visit. She has been evaluated by our therapy department. We are tentatively making plans for outpatient rehabilitation through [facility] [place][note 2]. Vitals/I&O/Wt Last Vital Signs Temp 98.2 F 06/21/23 16:30 Pulse 84 06/21/23 16:30 Resp 17 06/21/23 16:30 BP 151/91 06/21/23 16:30 Pulse Ox 94 06/21/23 16:30 O2 Del Method Room Air 06/21/23 04:00 O2 Flow Rate 3 06/20/23 13:30 06/21/23 06/21/23 06/21/23 06:59 14:59 22:59 Intake Total 350 / 2687 350 / 350 Output Total 765 / 2985 600 / 600 Balance -415 / -298 350 / 350 -600 / -250 Weight last 48 hrs Weight 170 lb 12.8 oz Weight 182 lb 2 oz Weight 172 lb Physical Exam Neck/C-Spine: OTHER: Neck incision is clean and dry. Neck remains soft. Neuro: OTHER: There maintains mild protrusion of the tongue to the right of midline though this appears to be decreased as compared to my exam this morning. There is still some mild hoarseness. She is taking liquids without evidence for aspiration. Neurologic exam is unchanged. I cannot appreciate left-sided agnosia on exam this evening. Urinary Catheter Management: Rodrigues: Cath Placed During This Visit: yes Reason for Continuing Indwelling Catheter: Accurate Measurement of Urinary Output in Critically Ill Patients Urinary Catheter Date of Insertion: 06/20/23 Urinary Catheter Time of Insertion: 07:40 Data 06/21/23 07:36 06/21/23 07:36 A&P Assessment and plan (1) Status post carotid endarterectomy: Troponin level scheduled for the morning. Today's troponin was mildly elevated at 12. EKG is unchanged. No arrhythmias. Chest discomfort is improved after Maalox. Attestations Medical Necessity Statement*: Postop day #1 status post right carotid endarterectomy secondary to high-grade stenosis with history of TIA last week. Procedures Arterial Line Size (Gauge): 20 Coding Level of Care Code Acute Code for Chg Fwd Diagnoses Status post carotid endarterectomy Z98.890 Time Spent (min) 20
[2023-06-21] MEDS: fluticasone nasal spray 16gm Btl 1 SPRAY NASAL (17:11)
[2023-06-21 20:40] LABS: Glucose Point of Care 155 mg/dL (70-110)
[2023-06-21] MEDS: HYDROcodone-acetaminophen 5-325 mg Tablet 1 TAB PO (21:00)
[2023-06-22] VITALS (34 sets, daily range): BP systolic 126–179; BP diastolic 72–106; PULSE 81–101; RESP 15–23; TEMP 36.2–37.1; O2SAT 90–95; BMI 30.3
[2023-06-22 04:58] LABS: Troponin T (5th) Once 11 ng/L (0-10)
--- NOTE | 2023-06-22 06:26 | P.PN_ITS ---
Subjective 2 Subjective: Postop day #2 status post right carotid endarterectomy. Patient sleeping on rounds this morning nursing services reports no concerns overnight. Patient does have some generalized weakness and some chronic left upper extremity weakness. Nurses report patient is having no difficulties with swallowing. Mild hoarseness noted. No evidence for aspiration. She was up in chair get better the night. Was able to transfer with only modest assistance. Good leg strength. Troponin this morning is 11 Was essentially unchanged from day prior. No upward trend. She denies further chest discomfort. Vitals/I&O/Wt Last Vital Signs Temp 98.4 F 06/22/23 04:51 Pulse 88 06/22/23 06:00 Resp 18 06/22/23 06:00 BP 126/98 06/22/23 05:45 Pulse Ox 93 06/22/23 06:00 O2 Del Method Room Air 06/22/23 04:15 O2 Flow Rate 3 06/20/23 13:30 06/21/23 06/21/23 06/22/23 14:59 22:59 06:59 Intake Total 350 / 350 Output Total 600 / 600 900 / 1500 Balance 350 / 350 -600 / -250 -900 / -1150 Weight last 48 hrs Weight 166 lb Weight 170 lb 12.8 oz Weight 182 lb 2 oz Physical Exam 2 Neck/C-Spine: OTHER: Postop surgical dressing is clean and dry. No localized swelling is noted. Face is symmetrical. Urinary Catheter Management: Rodrigues: Cath Placed During This Visit: yes Reason for Continuing Indwelling Catheter: Accurate Measurement of Urinary Output in Critically Ill Patients Urinary Catheter Date of Insertion: 06/20/23 Urinary Catheter Time of Insertion: 07:40 Data 06/21/23 07:36 06/21/23 07:36 A&P Assessment and plan (1) Status post carotid endarterectomy: Postop day #2 Plan: Will transfer to [facility]. DC Rodrigues catheter Increase activities under direction of our therapies services Plan for discharge to inpatient skilled care tomorrow Attestations 2 Medical Necessity Statement*: Postop day #2 status post carotid endarterectomy with postop chest discomfort now resolved. PT and OT evaluations. Procedures Arterial Line Size (Gauge): 20 Coding Level of Care Code Acute Code for Chg Fwd Diagnoses Status post carotid endarterectomy Z98.890
[2023-06-22 07:28] LABS: Glucose Point of Care 219 mg/dL (70-110)
[2023-06-22] MEDS: fluticasone nasal spray 16gm Btl 1 SPRAY NASAL ×2 (08:10→17:14)
[2023-06-22] MEDS: allopurinol 100 mg Tablet PO (08:10)
[2023-06-22] MEDS: atorvastatin 40 mg Tablet PO (08:10)
[2023-06-22] MEDS: insulin lispro 100 unit/1 mL SUBCUT ×4 (08:10→22:12)
[2023-06-22] MEDS: aspirin 81 mg EC Tablet 162 MG PO (08:10)
[2023-06-22] MEDS: enoxaparin 40 mg/0.4 mL Syringe SUBCUT (11:09)
[2023-06-22 12:09] LABS: Glucose Point of Care 198 mg/dL (70-110)
[2023-06-22] MEDS: HYDROcodone-acetaminophen 5-325 mg Tablet 1 TAB PO ×2 (12:47→22:16)
[2023-06-22 17:04] LABS: Glucose Point of Care 164 mg/dL (70-110)
[2023-06-22] MEDS: diclofenac 1% Topical Gel 100 gm 1 APPLIC TOPICAL (17:15)
[2023-06-22] MEDS: acetaminophen 500 mg Tablet PO (18:18)
[2023-06-22 21:14] LABS: Glucose Point of Care 176 mg/dL (70-110)
[2023-06-23] VITALS: BP 143/77; PULSE 89; RESP 18; TEMP 37.2; O2SAT 92
[2023-06-23 04:00] VITALS: BP 143/79; PULSE 92; RESP 18; TEMP 36.4; O2SAT 90
[2023-06-23 06:00] VITALS: PULSE 87
--- NOTE | 2023-06-23 07:08 | PM.DCS ---
Discharge Providers Date of Admission: 06/20/23 12:44 Date of Discharge: June 23, 2023 Attending Provider at Admission: Song Moeller MD Attending Provider at Discharge: Song Moeller MD Primary Care Provider: Bala Sen DO Diagnoses at Discharge Discharge Diagnosis (1) Status post carotid endarterectomy: Details from hospital stay: Ms. Pinto is an 83-year-old female who presented to the emergency department on June 15 with a TIA and a left sided profound weakness which resolved within approximately 2 hours. 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 She was seen on the same day in my clinic directly from the emergency department and we separately scheduled for elective admission for expeditious carotid endarterectomy. She was likely admitted on June 20 and underwent right endarterectomy. Postoperative, she convalesced in the ICU. She has previous mobility challenges related to a prior orthopedic injury to her upper extremity on the left side as well as difficulties in her left hip which resulted from the fall with her TIA. She was seen by our physical therapy department and is felt that postoperative rehabilitation would be beneficial. Surgical drain was removed on the first postop day with low output. Incision is clean, dry, and intact. She is tolerating her diet well. She did have some early hoarseness though this has substantially improved over the last 24 hours. Her lesion was high in her carotid artery requiring substantial retraction at the superior margin of the incision, putting pressure on the vagus nerve. There is mild drift to her tongue to the right though this is also improving. Meticulous dissection was required to free the recurrent laryngeal nerve from the facial vein. She continues to steadily improve and is eager for discharge. She will be scheduled for follow-up in my clinic in the next 7 to 10 days. At the time of discharge, she is in stable condition. Status: Acute Reason for Visit Reason for Visit: I65.2 Physical Exam Neck/C-Spine: COMMON NORMALS: no lymphadenopathy OTHER: Right neck incision is clean and dry. No evidence for hematoma or fluid collection. Resp: COMMON NORMALS: normal respiratory effort and clear to auscultation bilaterally AUSCULTATION: clear to auscultation bilaterally Cardio: COMMON NORMALS: regular rate, regular rhythm and S1 normal heart sound present RATE: regular rate RHYTHM: regular rhythm HEART SOUNDS: S1 normal heart sound present GI: COMMON NORMALS: Normal to inspection, nondistended, normoactive bowel sounds present, Soft to palpation and non-tender PALPATION: Yes Soft to palpation Extremity: NARRATIVE EXTREMITY EXAM: She appears to be at baseline with weakness noted in her left upper extremity. Left leg strength has improved and she is able to stand with only light assistance. Neuro: OTHER: Voice quality is improving. She is able to eat without aspiration or difficulties. Urinary Catheter Management: Rodrigues: Cath Placed During This Visit: yes, but has since been removed by the nurse Reason for Continuing Indwelling Catheter: Decision to DC Catheter Urinary Catheter Date of Insertion: 06/20/23 Urinary Catheter Time of Insertion: 07:40 Date Urinary Catheter Removed: 06/22/23 Time Urinary Catheter Discontinued: 06:35 Discharge Data Studies Completed and Pending Completed Studies During Hospitalization Category Date Time Status XR chest 1V portable [id number] Stat Exams 06/21/23 04:08 Completed XR hip LT 2-3V wo/w pel* [id number] Routine Exams 06/21/23 08:00 Completed Pending at discharge Category Date Time Status Leukocyte Reduced RBC Routine Lab 06/19/23 13:15 Results Type and Screen - Cardiac Routine Lab 06/19/23 13:15 Results Pathology: Surgical [PTH] Routine Pth 06/20/23 10:15 Received Radiology Impressions Chest X-Ray 06/21/23 04:08 IMPRESSION: 1. Mild left lower lung opacities, see above. 2. Other findings discussed above. Laboratory Results WBC 11.38 10^3/uL (3.29-11.43) 06/21/23 07:36 RBC 3.79 10^6/uL (3.85-5.65) L 06/21/23 07:36 Hgb 12.20 g/dL (11.27-16.99) 06/21/23 07:36 Hct 36.0 % (36-47) 06/21/23 07:36 MCV 95.0 fl (85-98) 06/21/23 07:36 MCH 32.2 pg (27-33) 06/21/23 07:36 MCHC 33.9 g/dL (30-55) 06/21/23 07:36 RDW 13.1 % (12.1-15.1) 06/21/23 07:36 Plt Count 220 10^3/cmm (157-399) 06/21/23 07:36 MPV 10.2 fL (7.4-10.4) 06/21/23 07:36 Neut % (Auto) 52.7 % 06/19/23 13:15 Lymph % (Auto) 34.9 % 06/19/23 13:15 [place] % (Auto) 10.2 % 06/19/23 13:15 Eos % (Auto) 1.5 % 06/19/23 13:15 Baso % (Auto) 0.3 % 06/19/23 13:15 Neut # (Auto) 5.15 10^3/uL (1.8-7.7) 06/19/23 13:15 Lymph # (Auto) 3.4 10^3/uL (0.8-4.8) 06/19/23 13:15 [place] # (Auto) 1.0 10^3/uL (0.2-0.9) H 06/19/23 13:15 Eos # (Auto) 0.2 10^3/uL (0.0-0.8) 06/19/23 13:15 Baso # (Auto) 0.0 10^3/uL (0.0-0.1) 06/19/23 13:15 Nucleated RBC % (auto) 0 % 06/19/23 13:15 Total Counted 100 (0-100) 06/21/23 07:36 Atypical Lymphs % 9.0 % (0-5) H 06/21/23 07:36 Absolute Neutrophils 7.5 10^3/cmm (1.4-6.5) H 06/21/23 07:36 Segmented Neutrophils 66 % 06/21/23 07:36 Abs Segm Neuts (Man) 7.5 10/cmm (1.6-7.1) H 06/21/23 07:36 Band Neutrophils 0.0 % 06/21/23 07:36 Abs Band Neuts (Man) 0.0 10^3/cmm (0.0-1.2) 06/21/23 07:36 Absolute Lymphocytes 3.2 10^3/cmm (1.2-3.4) 06/21/23 07:36 Lymphocytes (Manual) 19 % 06/21/23 07:36 Monocytes (Manual) 6.0 % 06/21/23 07:36 Absolute Monocytes 0.7 10^3/cmm (0.1-0.6) H 06/21/23 07:36 Eosinophils (Manual) 0 % 06/21/23 07:36 Absolute Eosinophils 0.0 10^3/cmm (0.0-0.7) 06/21/23 07:36 Basophils (Manual) 0.0 % 06/21/23 07:36 Absolute Basophils 0.0 10^3/cmm (0.0-0.2) 06/21/23 07:36 Nucleated RBCs # 0.0 /100WBC 06/19/23 13:15 Platelet Estimate Normal (Normal) 06/21/23 07:36 Sodium 139 mmol/L (136-145) 06/21/23 07:36 Potassium 3.7 mmol/L (3.5-5.1) 06/21/23 07:36 Chloride 102 mmol/L (98-107) 06/21/23 07:36 Carbon Dioxide 25 mmol/L (22-29) 06/21/23 07:36 Anion Gap 15.7 (5-19) 06/21/23 07:36 BUN 12 mg/dL (8-23) 06/21/23 07:36 Creatinine 0.4 mg/dL (0.5-0.9) L 06/21/23 07:36 GFR Calculation Not Reportable 06/21/23 07:36 Glucose 172 mg/dL (65-115) H 06/21/23 07:36 POC Glucose 176 mg/dL (70-110) H 06/22/23 21:08 Calculated Osmolality 292 mOsm/kg (285-295) 06/21/23 07:36 Calcium 9.2 mg/dL (8.5-10.5) 06/21/23 07:36 Troponin T 5th Gen ng/L 11 ng/L (0-10) H 06/22/23 04:04 Urine Color Yellow (Yellow) 06/19/23 11:25 Urine Appearance Sl hazy (CLEAR) A 06/19/23 11:25 Urine pH 5 (5-7) 06/19/23 11:25 Ur Specific [place] 1.015 (1.005-1.030) 06/19/23 11:25 Urine Protein Neg (Negative) 06/19/23 11:25 Urine Glucose (UA) Norm (Normal) 06/19/23 11:25 Urine Ketones Negative (Negative) 06/19/23 11:25 Urine Blood Neg (Negative) 06/19/23 11:25 Urine Nitrate Negative (Negative) 06/19/23 11:25 Urine Bilirubin Neg (Negative) 06/19/23 11:25 Urine Urobilinogen Norm mg/dL (Negative) 06/19/23 11:25 Ur Leukocyte Esterase Negative (Negative) 06/19/23 11:25 Urine RBC 0-4 /hpf (0-2) H 06/19/23 11:25 Urine WBC 0-4 /hpf (0-5) H 06/19/23 11:25 Ur Squamous Epith Cells 5-10 /hpf (0-5) H 06/19/23 11:25 Amorphous Sediment Not Reportable 06/19/23 11:25 Urine Bacteria 1+ /hpf (NONE) H 06/19/23 11:25 Blood Type AB Positive 06/19/23 13:15 Rho(D) Type Rh positive 06/19/23 13:15 Antibody Screen Negative 06/19/23 13:15 Crossmatch See Detail 06/19/23 13:15 Procedures Performed Right carotid endarterectomy with patch angioplasty on June 20, 2023 Vitals Last Vital Signs Temp 97.6 F 06/23/23 04:00 Pulse 87 06/23/23 06:00 Resp 18 06/23/23 04:00 BP 143/79 06/23/23 04:00 Pulse Ox 90 06/23/23 04:00 O2 Del Method Room Air 06/23/23 04:00 O2 Flow Rate 3 06/20/23 13:30 Discharge Plan Discharge Patient Disposition: Xfer SNF Condition: Stable Prescriptions: New acetaminophen 500 mg Tablet 500 mg PO Q6H PRN (Reason: Mild Pain Or Increase Temp) Qty: 100 4RF aspirin [Adult Low Dose Aspirin] 81 mg tablet,delayed release (DR/EC) 81 mg PO DAILY Qty: 100 4RF Continued atorvastatin 40 mg tablet 40 mg PO DAILY Qty: 30 5RF metoprolol succinate 100 mg tablet extended release 24 hr 100 mg PO DAILY@07 Qty: 90 3RF allopurinol 100 mg tablet 100 mg PO DAILY Qty: 90 1RF zolpidem 10 mg tablet 10 mg PO BEDTIME Qty: 30 5RF acetaminophen [Tylenol Extra Strength] 500 mg Tablet 1,000 mg PO Q6H PRN (Reason: Pain) naproxen sodium [Aleve] 220 mg Tablet 440 mg PO Q12H PRN (Reason: Pain) hydrochlorothiazide 25 mg tablet 25 mg PO DAILY metformin 500 mg tablet 500 mg PO BID cholestyramine (with sugar) 4 gram powder 4 ea PO QAM Discontinued aspirin 81 mg tablet,delayed release (DR/EC) 162 mg PO DAILY Discharge Orders: Discharge Order (Routine); Ordered 06/23/23 Ordered By: Song Moeller Referrals: [facility] [Outside] Song Moeller MD [Physician] - 7-10 days Discharge Diet: Diabetic Discharge Activity: Increase activity as tolerated Patient Instructions: Opioid Safety Activity Restrictions/Additional Instructions: may clean neck incision daiily, then paint with betadine for 1 week. May leave dressing off if no drainage or irritation from clothing Patient's Health Concerns: Unsteady gait Plan of Treatment: Per SNF rehbilitation dept. Discharge Attestations Time Spent in Discharge Care*: less than 30 min Specific Discharge Activities: educating patient, discussing with pcp/other providers, discussing with renal case manager/social workers/dc planners, documenting/other paperwork and evaluating patient/reviewing data Quality Metrics Clinical Quality Measures [ No reported AMI, CVA or VTE this stay] Coding Level of Care Code Acute Code for Chg Fwd Diagnoses Status post carotid endarterectomy Z98.890
[2023-06-23 07:13] LABS: Glucose Point of Care 192 mg/dL (70-110)
[2023-06-23 08:00] VITALS: BP 164/92; PULSE 96; RESP 15; TEMP 36.7; O2SAT 91
[2023-06-23] MEDS: allopurinol 100 mg Tablet PO (09:00)
[2023-06-23] MEDS: enoxaparin 40 mg/0.4 mL Syringe SUBCUT (09:00)
[2023-06-23] MEDS: aspirin 81 mg EC Tablet 162 MG PO (09:00)
[2023-06-23] MEDS: atorvastatin 40 mg Tablet PO (09:00)
[2023-06-23] MEDS: insulin lispro 100 unit/1 mL SUBCUT (09:01)
[2023-06-23] MEDS: fluticasone nasal spray 16gm Btl 1 SPRAY NASAL (09:05)
[2023-06-23] MEDS: diclofenac 1% Topical Gel 100 gm 1 APPLIC TOPICAL (09:06)
[2023-06-23 10:56] LABS: SARS Covid-2 Antigen negative (Negative)
[2023-06-23 12:00] VITALS: BP 148/94; PULSE 108; RESP 14; TEMP 36.4; O2SAT 91
[2023-06-23 12:22] LABS: Glucose Point of Care 175 mg/dL (70-110)
[2023-06-23 12:38] VITALS: BP 148/94; PULSE 108; RESP 14; TEMP 36.4; O2SAT 91
--- NOTE | 2023-06-23 12:40 | PC.NURSE ---
Discharge Note Patient discharged to [facility] via transport services accompanied by [facility] transport services. Discharge instructions reviewed with patient and/or hostess party sales representative. Mobile pharmacy medications and/or prescriptions provided. Belongings/home medications returned.
== END 2023-06-23 13:48 | disposition skilled nursing facility (03) | DRG 39 ==
LOC: ICU 12:45 → MEDSURG 06-22 08:29
PROVIDERS: Admitting Provider Thoracic Surgery (Cardiothoracic Vascular Surgery); PCP Family Medicine; Visit Provider Thoracic Surgery (Cardiothoracic Vascular Surgery)
PROC: 03CK0ZZ Extirpation of Matter from Right Internal Carotid Artery, Open Approach (ICD-10-PCS; CPT 35301; principal; 2023-06-20 07:00)
DX: I65.21 Occlusion and stenosis of right carotid artery (principal); K21.9 Gastro-esophageal reflux disease without esophagitis; E11.9 Type 2 diabetes mellitus without complications; E78.5 Hyperlipidemia, unspecified; Z86.73 Personal history of transient ischemic attack (TIA), and cerebral infarction without residual deficits; G47.00 Insomnia, unspecified; Z86.718 Personal history of other venous thrombosis and embolism; M25.552 Pain in left hip; I10 Essential (primary) hypertension; M10.9 Gout, unspecified
CPT/HCPCS: 36415; 36416; 51702; 71045; 73502; 80048; 81001; 82962; 84484; 85007; 85025; 85027; 86850; 86900; 86920; 87426; 88304; 88311; 92523; 92610; 93005; 96372; 96376; 97110; 97116; 97163; 97166; 97530; J0690; J1644; J1650; J1815; J2270; J3370; J3490; J7030; J7120; P9045

== ENCOUNTER → 2023-06-29 14:00 | Outpatient (BNVA) | payer MEDICARE, BC, OTHER, SELFPAY | PROVIDERS: PCP Family Medicine; Visit Provider Thoracic Surgery (Cardiothoracic Vascular Surgery) | DX: Z98.890 Other specified postprocedural states (principal); Z09 Encounter for follow-up examination after completed treatment for conditions other than malignant neoplasm | CPT/HCPCS: 99024 ==

== ENCOUNTER → 2023-07-17 15:31 | Outpatient (BNVA) | payer MEDICARE, BC, OTHER, SELFPAY | PROVIDERS: PCP Family Medicine; Visit Provider Thoracic Surgery (Cardiothoracic Vascular Surgery) | DX: Z98.890 Other specified postprocedural states (principal) | CPT/HCPCS: 99024 ==

== ENCOUNTER → 2023-09-11 12:56 | Outpatient (BNVA) | payer MEDICARE, BC, OTHER, SELFPAY | PROVIDERS: PCP Family Medicine; Visit Provider Thoracic Surgery (Cardiothoracic Vascular Surgery) | DX: Z98.890 Other specified postprocedural states (principal) | CPT/HCPCS: 99024 ==

== ENCOUNTER 2023-09-14 14:56 | Outpatient (CLI) | payer MEDICARE, BC, OTHER, SELFPAY ==
--- NOTE | 2023-09-14 15:15 | USCV_ITS ---
Lindsey Pinto Age: 83 Gender: F : 1940 Exam Date: 09/14/2023 15:04 Ordering Phys: Song Moeller MD (Andy) ([email or web address] [place] Technologist: ARACELI [place] [facility] [place]: RIGHT CEA, EVAL FOR CAROTID STENOSIS Risk Factors: Previous Vascular Surgery: Right Brachial BP: / Left Brachial BP: / Right Left Velocity (cm/s) Spectral Plaque Velocity (cm/s) Spectral Plaque Syst/Diast Broadening Syst/Diast Broadening 85.60/ 11.60 Prox CCA 52.00 / 8.70 48.60/ 11.50 Mid CCA 44.30 / 10.40 56.30/ 14.80 Distal CCA 36.60 / 11.50 35.00/ 7.20 Prox ICA 19.90 / 6.30 32.00/ 10.80 Mid ICA 36.60 / 14.20 34.30/ 12.00 Distal ICA 68.00 / 24.10 59.60 ECA 42.00 0.60 ICA/CCA 1.90 Antegrade Vertebral Antegrade 33.20/ 11.80 cm/s 34.60/ 8.20 cm/s Tri Subclavian Tri 95.30 105.6 0 CONCLUSIONS Prior RIGHT CEA Right ICA stenosis <50%. Mild atheromatous plaque right carotid bulb/ICA. Left ICA stenosis <50%. Mild atheromatous plaque left carotid bulb/ICA. Intimal thickening in the common carotid arteries and internal carotid arteries bilaterally. Normal antegrade Doppler flow noted in the right vertebral artery. Normal antegrade Doppler flow noted in the left vertebral artery. Magnus Jiménez MD (Electronically Signed) Final Date: 14 September 2023 16:31 S
== END 2023-09-14 14:57 | disposition home or self-care (01) ==
LOC: RAD 14:56
PROVIDERS: PCP Family Medicine; Visit Provider Thoracic Surgery (Cardiothoracic Vascular Surgery)
DX: I67.1 Cerebral aneurysm, nonruptured (principal); Z98.890 Other specified postprocedural states; G45.1 Carotid artery syndrome (hemispheric)
CPT/HCPCS: 93880; 99214

== ENCOUNTER → 2023-10-05 13:15 | Outpatient (BNVA) | payer MEDICARE, BC, OTHER, SELFPAY | PROVIDERS: PCP Family Medicine; Visit Provider Family Medicine | DX: Z13.6 Encounter for screening for cardiovascular disorders (principal); I10 Essential (primary) hypertension; E11.9 Type 2 diabetes mellitus without complications; G47.00 Insomnia, unspecified; M19.90 Unspecified osteoarthritis, unspecified site | CPT/HCPCS: 80053; 80061; 82607; 83036; 84550; 85025 ==

== ENCOUNTER → 2023-10-30 13:58 | Outpatient (BNVA) | payer MEDICARE, BC, OTHER, SELFPAY | PROVIDERS: PCP Family Medicine; Visit Provider Thoracic Surgery (Cardiothoracic Vascular Surgery) | DX: Z98.890 Other specified postprocedural states (principal) | CPT/HCPCS: 99213 ==

== ENCOUNTER → 2023-12-12 10:57 | Outpatient (BNVA) | payer MEDICARE, BC, OTHER, SELFPAY | PROVIDERS: PCP Family Medicine; Visit Provider Family Medicine | DX: I10 Essential (primary) hypertension (principal); I65.21 Occlusion and stenosis of right carotid artery; E11.9 Type 2 diabetes mellitus without complications; G45.1 Carotid artery syndrome (hemispheric) | CPT/HCPCS: 80053; 83036 ==

== ENCOUNTER → 2024-01-27 11:34 | Outpatient (BNVA) | payer MEDICARE, BC, OTHER, SELFPAY | PROVIDERS: PCP Family Medicine; Visit Provider Emergency Medicine | DX: M54.50 Low back pain, unspecified (principal); R10.9 Unspecified abdominal pain | CPT/HCPCS: 81000; 87086 ==

== ENCOUNTER → 2024-03-13 08:15 | Outpatient (BNVA) | payer MEDICARE, BC, OTHER, SELFPAY | PROVIDERS: PCP Family Medicine; Visit Provider Specialist | DX: I67.1 Cerebral aneurysm, nonruptured (principal); I65.29 Occlusion and stenosis of unspecified carotid artery; Z98.890 Other specified postprocedural states | CPT/HCPCS: 99212 ==

== ENCOUNTER → 2024-03-16 19:16 | Outpatient (BNVA) | payer MEDICARE, BC, OTHER, SELFPAY | PROVIDERS: PCP Family Medicine | DX: N39.0 Urinary tract infection, site not specified (principal) | CPT/HCPCS: 81000 ==

== ENCOUNTER 2024-04-01 11:04 | Outpatient (CLI) | payer MEDICARE, BC, OTHER, SELFPAY ==
--- NOTE | 2024-04-01 11:15 | USCV_ITS ---
Lindsey Pinto Age: 84 Gender: F : 1940 Exam Date: 04/01/2024 11:22 Ordering Phys: Song Moeller MD (Andy) [email or web address] [place] Technologist: BLAINE Exam Location: [facility] [place] Indication: Stenosis Risk Factors: Previous Vascular Surgery: Right Brachial BP: / Left Brachial BP: / Right Left Velocity (cm/s) Spectral Plaque Velocity (cm/s) Spectral Plaque Syst/Diast Broadening Syst/Diast Broadening 39.90/ 9.30 Prox CCA 43.80 / 7.70 48.60/ 14.80 Mid CCA 44.00 / 9.10 66.10/ 11.50 Distal CCA 39.40 / 11.00 24.90/ 5.90 Prox ICA 25.20 / 9.50 23.90/ 8.60 Mid ICA 40.50 / 15.90 35.10/ 12.70 Distal ICA 38.80 / 15.10 54.00 ECA 40.00 0.50 ICA/CCA 1.00 Antegrade Vertebral Antegrade 29.40/ 12.30 cm/s 35.90/ 11.40 cm/s Tri Subclavian Tri 88.10 99.90 FINDINGS Comparison:. 09/14/23 No significant elevation of systolic or diastolic velocities. Diffuse, mild bilateral scattered calcified plaque and intimal thickening throughout the common carotid arteries and extending through the bifurcation. Antegrade vertebral arteries. CONCLUSIONS Bilateral ICA stenosis less than 50%. Mild bilateral carotid atherosclerosis. No interval change in stenosis since prior exam. Dr. Lina Ward DO (Electronically Signed) Final Date: 01 April 2024 14:57 S
== END 2024-04-01 11:05 | disposition home or self-care (01) ==
LOC: RAD 11:04
PROVIDERS: PCP Family Medicine; Visit Provider Thoracic Surgery (Cardiothoracic Vascular Surgery)
DX: I65.23 Occlusion and stenosis of bilateral carotid arteries (principal)
CPT/HCPCS: 93880

== ENCOUNTER → 2024-04-11 13:15 | Outpatient (BNVA) | payer MEDICARE, BC, OTHER, SELFPAY | PROVIDERS: PCP Family Medicine; Visit Provider Internal Medicine Cardiovascular Disease | DX: I10 Essential (primary) hypertension (principal); E11.9 Type 2 diabetes mellitus without complications; E66.9 Obesity, unspecified; K44.9 Diaphragmatic hernia without obstruction or gangrene; I65.21 Occlusion and stenosis of right carotid artery; K21.9 Gastro-esophageal reflux disease without esophagitis; I87.2 Venous insufficiency (chronic) (peripheral); J44.9 Chronic obstructive pulmonary disease, unspecified | CPT/HCPCS: 99214 ==

== ENCOUNTER → 2024-04-29 12:42 | Outpatient (BNVA) | payer MEDICARE, BC, OTHER, SELFPAY | PROVIDERS: PCP Family Medicine; Visit Provider Family Medicine | DX: I10 Essential (primary) hypertension (principal); I87.2 Venous insufficiency (chronic) (peripheral); E11.9 Type 2 diabetes mellitus without complications; G47.00 Insomnia, unspecified | CPT/HCPCS: 80053; 80061; 82607; 83036 ==

== ENCOUNTER → 2024-08-12 12:11 | Outpatient (BNVA) | payer MEDICARE, BC, OTHER, SELFPAY | PROVIDERS: PCP Family Medicine; Visit Provider Family Medicine | DX: I10 Essential (primary) hypertension (principal); I87.2 Venous insufficiency (chronic) (peripheral); E11.9 Type 2 diabetes mellitus without complications; M10.9 Gout, unspecified; I63.9 Cerebral infarction, unspecified; J44.9 Chronic obstructive pulmonary disease, unspecified; G47.00 Insomnia, unspecified; M19.90 Unspecified osteoarthritis, unspecified site | CPT/HCPCS: 80053; 80061; 82607; 83036; 84550; 85025 ==

== ENCOUNTER 2024-08-13 12:17 | Outpatient (CLI) | payer MEDICARE, BC, OTHER, SELFPAY ==
--- NOTE | 2024-08-13 12:30 | CT_ITS ---
WS: [id number] CTA HEAD TECHNIQUE: Contrast enhanced CTA of the head with coronal and sagittal reformatted images and maximum intensity projection (MIP) images. NASCET criteria utilized. CLINICAL INFORMATION: I67.1 - Cerebral aneurysm, nonruptured COMPARISON: CTA 05/19/2023 DLP: 2228.[address] scans at [facility] use at least one of these dose optimization techniques: automated exposure control; mA and/or kV adjustment per patient size (includes targeted exams where dose is matched to clinical indication); or iterative reconstruction. FINDINGS: Mild small vessel changes. Moderate parenchymal volume loss. 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 Retention cyst RIGHT maxillary sinus. Small retention cyst RIGHT ethmoid air cells. Mastoid air cells are well aerated. INTRACRANIAL CTA: Distal vertebral arteries are patent. Basilar artery is patent. Normal vascularity to the CHEMIC MANGLER territory bilaterally. Both ICAs are patent at the skull base. Mild cavernous carotid calcification. Normal vascularity to the DEVENDRA and MCA territories bilaterally. No evidence of proximal flow-limiting stenosis. Mild segmental narrowing of the LEFT M1 segment. 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 Adjacent smaller 3 mm more distal MCA aneurysm is stable. CT/CT angio head [id number] IMPRESSION: 1. 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 2. Adjacent small 3 mm more distal MCA aneurysm is stable. 3. Mild narrowing LEFT M1 segment. 4. Mild narrowing of the RIGHT ICA at the skull base with eccentric soft plaqu e similar to the prior studies 5. Mild cavernous carotid calcification.
[2024-08-13] MEDS: iohexol 350 mg/mL 500 mL Btl (per mL) IV (13:01)
== END 2024-08-13 12:18 | disposition home or self-care (01) ==
PROVIDERS: PCP Family Medicine; Visit Provider Specialist
DX: I67.1 Cerebral aneurysm, nonruptured (principal); I66.02 Occlusion and stenosis of left middle cerebral artery; I65.23 Occlusion and stenosis of bilateral carotid arteries; R93.0 Abnormal findings on diagnostic imaging of skull and head, not elsewhere classified; G93.89 Other specified disorders of brain; M27.40 Unspecified cyst of jaw; J34.1 Cyst and mucocele of nose and nasal sinus
CPT/HCPCS: 70496

== ENCOUNTER 2024-09-26 14:15 | Emergency (ER) | payer MEDICARE, BC, OTHER, SELFPAY ==
[2024-09-26 14:29] VITALS: BP 169/127; PULSE 77; RESP 15; TEMP 36.7; O2SAT 98; BMI 30.9
--- NOTE | 2024-09-26 15:45 | W.ED.FALL ---
HPI - Fall General: Chief Complaint: Fall Stated Complaint: fall/hurt chest Time Seen by Provider: 09/26/24 15:36 Source: patient and family Mode of arrival: ambulatory Limitations: no limitations History of Present Illness: Patient is an 84-year-old female who presents today following a fall earlier this morning. Patient reports that she tripped and hit her sternum on a bed railing. Patient states that she did not hit her head. Denies loss of conscious before or after the fall. Patient states that she now is having pain/tenderness in the center of her chest where she hit the bed railing. She states that this pain is worse with inspiration, coughing, and movement. Patient has not yet tried any medications or interventions for her pain. MD complaint: fall Onset (ago): hour(s) Fall from: standing Fall witnessed: no Place fall occurred: home Loss of consciousness: None Prolonged down time: no Symptoms prior to fall: none Context: tripped/slipped Location of injury: chest Severity scale (1-10): 9 Quality: sharp Associated symptoms-after fall: Reports no associated symptoms and chest pain; Denies abdominal pain, headache(s), lightheadedness, neck pain or vertigo Related Data Home Medications ?Medication ?Instructions ?Recorded ?Confirmed acetaminophen 500 mg tablet 1,000 mg PO Q6H PRN Pain 09/30/20 04/11/24 (Tylenol Extra Strength) naproxen sodium 220 mg tablet 440 mg PO Q12H PRN Pain 06/23/22 03/29/24 (Aleve) kugwmrmk-tyu-ahzol ac 400 1 tab PO DAILY 09/12/23 04/11/24 mcg-calcium carb 500 mg-vit K1 20 mcg tablet (Women's 50 Plus Multivitamin) aspirin 81 mg tablet,delayed 162 mg PO DAILY 10/30/23 04/11/24 release (Adult Low Dose Aspirin) Previous Rx's ?Medication ?Instructions ?Recorded acetaminophen 500 mg tablet 500 mg PO Q6H PRN Mild Pain Or 06/23/23 Increase Temp #100 tabs allopurinol 100 mg tablet 100 mg PO DAILY uric acid #90 tabs 10/23/23 hydrochlorothiazide 25 mg tablet 25 mg PO DAILY bp #90 tabs 10/23/23 metoprolol succinate 100 mg 100 mg PO DAILY@07 #90 tabs 05/13/24 tablet,extended release 24 hr cholestyramine (with sugar) 4 gram 4 ea PO QAM #378 grams 11/01/23 oral powder albuterol sulfate 90 mcg/actuation 2 puff inhalation Q4H PRN 03/22/24 aerosol inhaler (Ventolin HFA) shortness of breath or wheezing #8.5 grams amoxicillin 875 mg-potassium 1 tab PO BID sinus infection #20 04/29/24 clavulanate 125 mg tablet tabs metformin 500 mg tablet 500 mg PO BID DM #180 tabs 04/29/24 prednisone 10 mg tablet 10 mg PO DAILY sinus inflammation 04/29/24 #10 tabs zolpidem 10 mg tablet 10 mg PO BEDTIME sleep #30 tabs 04/29/24 glipizide 2.5 mg tablet 2.5 mg PO BID DM #180 tabs 08/14/24 atorvastatin 40 mg tablet See Rx Instructions .Route 09/17/24 .COMPLEX #30 tabs Allergies Allergy/AdvReac Type Severity Reaction Status Date / Time poliomyelitis vaccine,killed Allergy Unknown Verified 08/12/24 11:36 Review of Systems Const: Denies: fever(s), chills or body aches Eyes: Denies: change in vision or blurry vision ENMT: Denies: bleeding gums, dental pain, change in hearing, epistaxis or sinus pain Card: Reports: chest pain; Denies: palpitations, lightheadedness, syncope or pre-syncope Resp: Reports: pain on inspiration; Denies: dyspnea, productive cough, non-productive cough, wheezing or stridor GI: Denies: abdominal pain, nausea or vomiting : Denies: flank pain Musc: Denies: neck pain, back pain or extremity pain Neuro: Denies: headache(s), numbness in extremities, weakness in extremities, sensory changes, dizziness, vertigo or Slurred speech present PFSH ED PFSH: Medical History Allergies Insomnia Gout Chronic diarrhea DVT (deep venous thrombosis) Hypertension Type 2 diabetes mellitus GERD (gastroesophageal reflux disease) Surgical History History of hand surgery Status post laparoscopic cholecystectomy (~10/03/20) H/O: hysterectomy H/O sinus surgery H/O varicose vein stripping Family History Father CAD (coronary artery disease) Mother CAD (coronary artery disease) Other Heart disease Myocardial infarction Social History Smoking and tobacco/nicotine status: never used tobacco/nicotine Alcohol intake: current Alcohol intake frequency: holidays/special occasions only Substance/Drug Use: never Physical Exam Const: COMMON NORMALS: no acute distress, patient oriented x3, no limitations, healthy appearing, alert and well nourished GENERAL APPEARANCE: cooperative ORIENTATION/CONSCIOUSNESS: Yes awake, Yes oriented to person, Yes oriented to place and Yes oriented to time HENMT: COMMON NORMALS: normocephalic and atraumatic HEAD & SCALP: normal to inspection, normocephalic and atraumatic FACE & SINUS: normal facial exam Neck/C-Spine: COMMON NORMALS: full ROM GENERAL: Yes normal visual inspection CERVICAL SPINE: No Cervical spine tenderness Chest: COMMONS NORMALS: normal inspection of the chest CHEST: Yes Symmetrical chest wall rise, No crepitus, Yes tenderness sternum, No laceration, No abrasion and No Ecchymosis present OTHER: no crepitus to chest wall; normal lung sounds Resp: COMMON NORMALS: normal respiratory effort, No retractions, No use of accessory muscles and clear to auscultation bilaterally EFFORT & INSPECTION: Yes able to speak in complete sentences and Yes symmetric chest movement AUSCULTATION: clear to auscultation bilaterally Cardio: COMMON NORMALS: regular rate and regular rhythm RATE: regular rate RHYTHM: regular rhythm Back/Pelvis: COMMON NORMALS: thoracic and lumbar spine normal to inspection Extremity: GENERAL: Yes normal exam except as noted Neuro: JOHNATHAN COMA SCALE: document GCS findings Hamilton coma scale eye opening: Spontaneous Hamilton coma scale verbal response: Orientated Johnathan coma scale motor response: Obey commands Hamilton coma scale total score: 15 COMMON NORMALS: patient oriented x3 SENSORIUM/ORIENTATION: Yes alert, Yes oriented to person, Yes oriented to place and Yes oriented to time Course Vital Signs: Vital signs: Vital Signs Temperature 98.1 F 09/26/24 14:29 Pulse Rate 77 09/26/24 14:29 Respiratory Rate 15 09/26/24 14:29 Blood Pressure 169/127 09/26/24 14:29 Pulse Oximetry 98 09/26/24 14:29 Oxygen Delivery Me thod Room Air 09/26/24 14:29 MDM - Fall Medical Decision Making XR CXR/sternum unremarkable. Patient diagnosed with sternal contusion and given instructions for treatment regarding this. Return precautions discussed. Medical Records I reviewed the patient's medical records. Lab Data Radiology Impressions Chest X-Ray 09/26/24 16:07 IMPRESSION: No acute findings. Sternum X-Ray 09/26/24 16:07 IMPRESSION: No acute findings. All radiology interpretation(s) finalized by discharge Discharge Plan Discharge Patient Disposition: Home Clinical Impression: Contusion of sternum Qualifiers: Encounter type: initial encounter Qualified Code(s): S20.219A - Contusion of unspecified front wall of thorax, initial encounter Condition: Stable Prescriptions: No Action Women's 50 Plus Multivitamin 400 mcg-500 mg calcium-20 mcg tablet 1 tab PO DAILY albuterol sulfate [Ventolin HFA] 90 mcg/actuation HFA aerosol inhaler 2 puff inhalation Q4H PRN (Reason: shortness of breath or wheezing) Qty: 8.5 0RF Adult Low Dose Aspirin 81 mg tablet,delayed release (DR/EC) 162 mg PO DAILY zolpidem 10 mg tablet 10 mg PO BEDTIME Qty: 30 5RF amoxicillin-pot clavulanate 875-125 mg tablet 1 tab PO BID Qty: 20 0RF prednisone 10 mg tablet 10 mg PO DAILY Qty: 10 0RF metformin 500 mg tablet 500 mg PO BID Qty: 180 3RF hydrochlorothiazide 25 mg tablet 25 mg PO DAILY Qty: 90 3RF metoprolol succinate 100 mg tablet extended release 24 hr 100 mg PO DAILY@07 Qty: 90 3RF allopurinol 100 mg tablet 100 mg PO DAILY Qty: 90 3RF cholestyramine (with sugar) 4 gram powder 4 ea PO QAM Qty: 378 12RF glipizide 2.5 mg tablet 2.5 mg PO BID Qty: 180 3RF atorvastatin 40 mg tablet See Rx Instructions .ROUTE .COMPLEX Qty: 30 0RF Dose Instruction: Take 1 tablet by mouth once daily Rx Instructions: Take 1 tablet by mouth once daily acetaminophen [Tylenol Extra Strength] 500 mg Tablet 1,000 mg PO Q6H PRN (Reason: Pain) naproxen sodium [Aleve] 220 mg Tablet 440 mg PO Q12H PRN (Reason: Pain) acetaminophen 500 mg Tablet 500 mg PO Q6H PRN (Reason: Mild Pain Or Increase Temp) Qty: 100 4RF Discharge Orders: Discharge ED (Routine); Ordered 09/26/24 Ordered By: Elena Matos Referrals: Bala Sen DO [Primary Care Provider] - Patient Instructions: Chest Contusion (ED) Activity Restrictions/Additional Instructions: As we discussed, x-rays of your chest/sternum were unremarkable. You may use ice, heat, and [id number]-qem-[id number] analgesics to help with discomfort. Ultimately this may just take time to heal. You may follow-up with primary care next week for reevaluation. You may return to the emergency department at anytime for worsening pain, shortness of breath, difficulty breathing, or any other concerns you may have. I hope you begin to feel better soon. Print Language: Sierra Leonean Coding Level of Care Code ED Partition Assembly Machine Operator for Karl Mario
--- NOTE | 2024-09-26 16:07 | XRR_ITS ---
PROCEDURE INFORMATION: Exam: XR Chest Exam date and time: 09/26/2024 4:29 PM Age: 84 years old Clinical indication: Injury or trauma; Fall; Other: Pain TECHNIQUE: Imaging protocol: Radiologic exam of the chest. Views: 1 view. COMPARISON: CR (CHEST, ) 06/21/2023 4:21 AM FINDINGS: Lungs: Unremarkable. No consolidation. Pleural spaces: Unremarkable. No pleural effusion. No pneumothorax. Heart/Mediastinum: Unremarkable. No cardiomegaly. Bones/joints: Unremarkable. XR/XR chest 1V portable [id number] IMPRESSION: No acute findings.
--- NOTE | 2024-09-26 16:07 | XRR_ITS ---
PROCEDURE INFORMATION: Exam: XR Sternum Exam date and time: 09/26/2024 4:29 PM Age: 84 years old Clinical indication: Injury or trauma; Fall; Other: Pain; Additional info: Fall today, landed on chest and C/O sternal pain and tenderness TECHNIQUE: Imaging protocol: Radiologic exam of the sternum. Views: 2 or more views. COMPARISON: CT angio chest PE protcl [id number] 09/30/2020 1:29 PM FINDINGS: Bones/joints: Normal. Soft tissues: Normal. XR/XR sternum min 2V [id number] IMPRESSION: No acute findings.
== END 2024-09-26 17:22 | disposition home or self-care (01) ==
PROVIDERS: Emergency Provider Physician Assistant; PCP Family Medicine
DX: S20.219A Contusion of unspecified front wall of thorax, initial encounter (principal); Z79.84 Long term (current) use of oral hypoglycemic drugs; E11.9 Type 2 diabetes mellitus without complications; I10 Essential (primary) hypertension; W01.190A Fall on same level from slipping, tripping and stumbling with subsequent striking against furniture, initial encounter
CPT/HCPCS: 71045; 71120; 99283

== ENCOUNTER → 2024-10-03 12:10 | Outpatient (BNVA) | payer MEDICARE, BC, OTHER, SELFPAY | PROVIDERS: PCP Family Medicine; Visit Provider Specialist | DX: I67.1 Cerebral aneurysm, nonruptured (principal); Z98.890 Other specified postprocedural states | CPT/HCPCS: 99214 ==

== ENCOUNTER → 2024-11-11 11:11 | Outpatient (BNVA) | payer MEDICARE, BC, OTHER, SELFPAY | PROVIDERS: PCP Family Medicine; Visit Provider Family Medicine | DX: I10 Essential (primary) hypertension (principal); I87.2 Venous insufficiency (chronic) (peripheral); I65.21 Occlusion and stenosis of right carotid artery; E11.9 Type 2 diabetes mellitus without complications; M10.9 Gout, unspecified; G47.00 Insomnia, unspecified; M19.90 Unspecified osteoarthritis, unspecified site | CPT/HCPCS: 80053; 80061; 82607; 83036; 84550 ==

== ENCOUNTER → 2024-11-23 13:50 | Outpatient (BNVA) | payer MEDICARE, BC, OTHER, SELFPAY | PROVIDERS: PCP Family Medicine; Visit Provider Emergency Medicine | DX: M17.12 Unilateral primary osteoarthritis, left knee (principal); M25.561 Pain in right knee; M25.562 Pain in left knee | CPT/HCPCS: 73562 ==

== ENCOUNTER 2024-11-26 10:14 | Emergency (ER) | payer MEDICARE, BC, OTHER, SELFPAY ==
[2024-11-26 10:33] VITALS: BP 173/91; PULSE 66; RESP 16; TEMP 36.4; O2SAT 96
[2024-11-26 12:13] LABS: Basophils % 0.3 %; Eosinophils # 0.2 10^3/uL (0.0-0.8); Eosinophils % 2.2 %; Hematocrit 37.5 % (36-47); Lymphocytes # 2.8 10^3/uL (0.8-4.8); Lymphocytes % 36.3 %; Mean Corpuscular HGB Conc 33.9 g/dL (30-55); Mean Corpuscular Hemoglobin 32.2 pg (27-33); Mean Corpuscular Volume 95.2 fl (85-98); Mean Platelet Volume 10.3 fL (7.4-10.4); Monocytes # 0.6 10^3/uL (0.2-0.9); Monocytes % 8.4 %; Neutrophils % 52.5 %; Nucleated Red Blood Cells % 0 %; Platelet Count 228 10^3/cmm (157-399); Red Blood Count 3.94 10^6/uL (3.85-5.65); Red Cell Distribution Width 12.8 % (12.1-15.1); White Blood Count 7.61 10^3/uL (3.29-11.43)
[2024-11-26 12:18] LABS: Erythrocyte Sedimentation Rate 10 mm/hr (0-15)
[2024-11-26 12:38] LABS: Alanine Aminotransferase 29 U/L (0-33); Albumin Level 4.2 g/dL (3.5-5.2); Alkaline Phosphatase 36 U/L (35-105); Anion Gap 19.7 (5-19); Aspartate Amino Transferase 48 U/L (0-32); Blood Urea Nitrogen 16 mg/dL (8-23); Calcium 9.6 mg/dL (8.5-10.5); Carbon Dioxide 23 mmol/L (22-29); Chloride 100 mmol/L (98-107); Creatinine Clr Calc Pharmacy 50.7716; Globulin 3.2 g/dL (1.3-4.6); Glucose 230 mg/dL (65-115); Osmolality Calculated 294 mOsm/kg (285-295); Potassium 4.7 mmol/L (3.5-5.1); Sodium 138 mmol/L (136-145); Total Bilirubin 0.4 mg/dL (0.15-1.2); Total Protein 7.4 g/dL (6.6-8.7)
--- NOTE | 2024-11-26 13:27 | ED_ITS ---
HPI - Extremity Injury (Lower) 2 General: Chief Complaint: Extremity Injury, Lower Stated Complaint: R knee pian, fall Source: patient Mode of arrival: ambulatory Limitations: no limitations History of Present Illness: Patient is an 84-year-old female presents to ED today with a complaint of a contusion to the anterior aspect of her right knee following a fall approximately 3 days ago. She was seen at a walk-in clinic and had normal x- rays performed. Patient concerned as area is swollen and very bruised and warm. Patient states she is still ambulating well without difficulty or assistance. She has not noticed any calf pain or swelling. MD complaint: knee injury Onset (ago): day(s) Injury: Right: knee Type of Injury: blunt Place: home Severity: mild Relieving factors: nothing Exacerbating factors: nothing Context: fall and direct blow Associated symptoms: Reports no associated symptoms Other symptoms: none Related Data Home Medications ?Medication ?Instructions ?Recorded ?Confirmed acetaminophen 500 mg tablet 1,000 mg PO Q6H PRN Pain 0 09/30/20 11/23/24 (Tylenol Extra Strength) croscgfw-uzr-adxwj ac 400 1 tab PO DAILY 09/12/2311/10 mcg-calcium carb 500 mg-vit K1 20 mcg tablet (Women's 50 Plus Multivitamin) aspirin 81 mg tablet,delayed 162 mg PO DAILY 10/30/23 11/23/24 release (Adult Low Dose Aspirin) Previous Rx's ?Medication ?Instructions ?Recorded acetaminophen 500 mg tablet 500 mg PO Q6H PRN Mild Dina n Or 06/23/23 Increase Temp #100 tabs allopurinol 100 mg tablet 100 mg PO DAILY uric acid #9 0 tabs 10/23/23 cholestyramine (with sugar) 4 gram 4 ea PO QAM #378 gr ams 11/01/23 oral powder albuterol sulfate 90 mcg/actuation 2 puff inhalation Q 4H PRN 03/22/24 aerosol inhaler (Ventolin HFA) shortness of breath or wheezing #8.5 grams metformin 500 mg tablet 500 mg PO BID DM #180 tabs 1 06/29/23 glipizide 2.5 mg tablet 2.5 mg PO BID DM #180 tabs 0 08/14/24 hydrochlorothiazide 25 mg tablet 25 mg PO DAILY bp #90 tabs 10/02/24 metoprolol succinate 100 mg 100 mg PO DAILY@07 #90 tab s 10/02/24 tablet,extended release 24 hr atorvastatin 40 mg tablet See Rx Instructions .Route 0 10/29/24 .COMPLEX #90 tabs zolpidem 10 mg tablet 10 mg PO BEDTIME sleep #30 t abs 10/29/24 Allergies Allergy/AdvReac Type Severity Reaction Status Date / Time poliomyelitis vaccine,killed Allergy Unknown Verified 11/23/24 13:24 Review of Systems 2 Const: Denies: fever(s) Card: Denies: chest pain Resp: Denies: dyspnea Musc: Reports: joint pain and joint swelling; Denies: joint redness, joint stiffness, limited range of motion or muscle weakness Neuro: Denies: numbness in extremities, weakness in extremities, sensory changes or difficulty walking PFSH ED 2 PFSH: Medical History Allergies Insomnia Gout Chronic diarrhea DVT (deep venous thrombosis) Hypertension Type 2 diabetes mellitus GERD (gastroesophageal reflux disease) Surgical History History of hand surgery Status post laparoscopic cholecystectomy (~10/03/20) H/O: hysterectomy H/O sinus surgery H/O varicose vein stripping Family History Father CAD (coronary artery disease) Mother CAD (coronary artery disease) Other Heart disease Myocardial infarction Social History Smoking and tobacco/nicotine status: never used tobacco/nicotine Alcohol intake: current Alcohol intake frequency: holidays/special occasions only Substance/Drug Use: never Physical Exam 2 Const: COMMON NORMALS: no acute distress, average body habitus, no limitations, healthy appearing, alert and well nourished Resp: COMMON NORMALS: normal respiratory effort and clear to auscultation bilaterally AUSCULTATION: clear to auscultation bilaterally Cardio: COMMON NORMALS: regular rate and regular rhythm RATE: regular rate RHYTHM: regular rhythm Extremity: COMMON NORMALS: full ROM, capillary refill normal and no calf tenderness GENERAL: Yes normal exam except as noted RIGHT LOWER EXTREMITY: Yes knee joint (hematoma/ecchymosis anterior knee; can bear full weight w/o difficulty) Right knee: Yes palpation (underlying hematoma; no cellulitis; warm due to edema/hematoma), Yes ROM (fairly normal ROM) and Yes neurovascular exam (normal) Neuro: COMMON NORMALS: moves all extremities, no focal motor deficits and no sensory deficits noted SENSORIUM/ORIENTATION: Yes alert Course 2 Vital Signs: Vital signs: Vital Signs Temperature 97.5 F L 11/26/24 10:33 Pulse Rate 66 11/26/24 10:33 Respiratory Rate 16 11/26/24 10:33 Blood Pressure 173/91 11/26/24 10:33 Pulse Oximetry 96 11/26/24 10:33 Oxygen Delivery Me thod Room Air 11/26/24 10:33 MDM - Extremity Injury (Lower) Medical Decision Making XR of her right knee that was performed a few days ago was reviewed. No acute fracture seen. She is ambulatory here without difficulty or assistance. Discussed her findings represent contusion/hematoma. This should resolve with time. We spoke about RICE therapy. Patient seems satisfied with this plan and patient was prepped for discharge. Daughter later arrived who is reportedly livid that I did not order an ultrasound for DVT evaluation. She states she contacted her primary care office (did not speak to the physician/provider) and told them that her leg was warm and swollen and they were told to report to the emergency department for ultrasound to rule out DVT. I told him clinically I do not have any suspicion for this and a phone call to the front staff office is not a substitute for an actual physical examination. Based on my physical examination, I do not have any suspicion for DVT. Family rude and essentially demanding that I order an ultrasound. This was conducted and unremarkable. Patient will be discharged. Medical Records I reviewed the patient's medical records. Lab Data 11/26/24 12:08 11/26/24 12:08 Laboratory Results WBC 7.61 10^3/uL (3.29-11.43) 11/26/24 12:08 RBC 3.94 10^6/uL (3.85-5.65) 11/26/24 12:08 Hgb 12.70 g/dL (11.27-16.99) 11/26/24 12:08 Hct 37.5 % (36-47) 11/26/24 12:08 MCV 95.2 fl (85-98) 11/26/24 12:08 MCH 32.2 pg (27-33) 11/26/24 12:08 MCHC 33.9 g/dL (30-55) 11/26/24 12:08 RDW 12.8 % (12.1-15.1) 11/26/24 12:08 Plt Count 228 10^3/cmm (157-399) 11/26/24 12:08 MPV 10.3 fL (7.4-10.4) 11/26/24 12:08 Neut % (Auto) 52.5 % 11/26/24 12:08 Lymph % (Auto) 36.3 % 11/26/24 12:08 [place] % (Auto) 8.4 % 11/26/24 12:08 Eos % (Auto) 2.2 % 11/26/24 12:08 Baso % (Auto) 0.3 % 11/26/24 12:08 Neut # (Auto) 4.00 10^3/uL (1.8-7.7) 11/26/24 12:08 Lymph # (Auto) 2.8 10^3/uL (0.8-4.8) 11/26/24 12:08 [place] # (Auto) 0.6 10^3/uL (0.2-0.9) 11/26/24 12:08 Eos # (Auto) 0.2 10^3/uL (0.0-0.8) 11/26/24 12:08 Baso # (Auto) 0.0 10^3/uL (0.0-0.1) 11/26/24 12:08 Nucleated RBC % (auto) 0 % 11/26/24 12:08 Nucleated RBCs # 0.0 /100WBC 11/26/24 12:08 ESR 10 mm/hr (0-15) 11/26/24 12:08 Sodium 138 mmol/L (136-145) 11/26/24 12:08 Potassium 4.7 mmol/L (3.5-5.1) 11/26/24 12:08 Chloride 100 mmol/L (98-107) 11/26/24 12:08 Carbon Dioxide 23 mmol/L (22-29) 11/26/24 12:08 Anion Gap 19.7 (5-19) H 11/26/24 12:08 BUN 16 mg/dL (8-23) 11/26/24 12:08 Creatinine 0.5 mg/dL (0.5-0.9) 11/26/24 12:08 GFR Calculation Not Reportable 11/26/24 12:08 Glucose 230 mg/dL (65-115) H 11/26/24 12:08 Calculated Osmolality 294 mOsm/kg (285-295) 11/26/24 12:08 Calcium 9.6 mg/dL (8.5-10.5) 11/26/24 12:08 Total Bilirubin 0.4 mg/dL (0.15-1.2) 11/26/24 12:08 AST 48 U/L (0-32) H 11/26/24 12:08 ALT 29 U/L (0-33) 11/26/24 12:08 Alkaline Phosphatase 36 U/L (35-105) 11/26/24 12:08 C-Reactive Protein 3.0 mg/L (0.0-4.9) 11/26/24 12:08 Total Protein 7.4 g/dL (6.6-8.7) 11/26/24 12:08 Albumin 4.2 g/dL (3.5-5.2) 11/26/24 12:08 Globulin 3.2 g/dL (1.3-4.6) 11/26/24 12:08 XR interpretation done by ED provider, pending radiology final review (per Jean Carlos Terrazas-US negative) Discharge Plan Discharge Patient Disposition: Home Clinical Impression: Contusion of right knee Qualifiers: Encounter type: initial encounter Qualified Code(s): S80.01XA - Contusion of right knee, initial encounter Condition: Stable Prescriptions: No Action Women's 50 Plus Multivitamin 400 mcg-500 mg calcium-20 mcg tablet 1 tab PO DAILY albuterol sulfate [Ventolin HFA] 90 mcg/actuation HFA aerosol inhaler 2 puff inhalation Q4H PRN (Reason: shortness of breath or wheezing) Qty: 8.5 0RF Adult Low Dose Aspirin 81 mg tablet,delayed release (DR/EC) 162 mg PO DAILY metformin 500 mg tablet 500 mg PO BID Qty: 180 3RF allopurinol 100 mg tablet 100 mg PO DAILY Qty: 90 3RF cholestyramine (with sugar) 4 gram powder 4 ea PO QAM Qty: 378 12RF glipizide 2.5 mg tablet 2.5 mg PO BID Qty: 180 3RF hydrochlorothiazide 25 mg tablet 25 mg PO DAILY Qty: 90 3RF metoprolol succinate 100 mg tablet extended release 24 hr 100 mg PO DAILY@07 Qty: 90 3RF atorvastatin 40 mg tablet See Rx Instructions .ROUTE .COMPLEX Qty: 90 3RF Dose Instruction: Take 1 tablet by mouth once daily Rx Instructions: Take 1 tablet by mouth once daily zolpidem 10 mg tablet 10 mg PO BEDTIME Qty: 30 5RF acetaminophen [Tylenol Extra Strength] 500 mg Tablet 1,000 mg PO Q6H PRN (Reason: Pain) acetaminophen 500 mg Tablet 500 mg PO Q6H PRN (Reason: Mild Pain Or Increase Temp) Qty: 100 4RF Discharge Orders: Discharge ED (Routine); Ordered 11/26/24 Ordered By: Elena Matos Referrals: Bala Sen DO [Primary Care Provider, [facility]] Patient Instructions: Contusion in Adults (ED), Hematoma (ED) Activity Restrictions/Additional Instructions: As we discussed, continue to ice and elevate the knee is much as possible to help with swelling. Print Language: Tongan Coding Level of Care Code ED Clinical Allergist for Karl Mario
--- NOTE | 2024-11-26 13:34 | USCV_ITS ---
Lnidsey Pinto Age: 84 Gender: F : 1940 Exam Date: 11/26/2024 13:57 Ordering Phys: Elena Matos Technologist: Exam Location: [facility] [place] Indication: Rt leg contusion PROCEDURES: Venous duplex imaging was performed in only the right lower extremity. The following venous structures were evaluated: common femoral vein, profunda vein, proximal portion of the greater saphenous vein, superficial femoral vein, and the popliteal vein. In addition, the posterior tibial and peroneal trunk were evaluated. FINDINGS: Normal 2-D Doppler and augmentation and compressibility throughout the lower extremity venous structures. Additional imaging through the proximal calf veins also reveals no thrombus. Limited evaluation of the greater saphenous vein is patent with no thrombus. CONCLUSIONS No evidence of right lower extremity DVT. Magnus Jiménez MD (Electronically Signed) Final Date: 26 November 2024 15:41 S
== END 2024-11-26 14:27 | disposition home or self-care (01) ==
PROVIDERS: Emergency Medicine; Emergency Provider Physician Assistant; PCP Family Medicine
DX: S80.01XA Contusion of right knee, initial encounter (principal); M79.604 Pain in right leg; Z79.84 Long term (current) use of oral hypoglycemic drugs; E11.9 Type 2 diabetes mellitus without complications; I10 Essential (primary) hypertension; W19.XXXA Unspecified fall, initial encounter
CPT/HCPCS: 36415; 80053; 85025; 85651; 86140; 93971; 99284

== ENCOUNTER 2025-01-10 06:30 | Outpatient (RCR) | payer MEDICARE, BC, OTHER, SELFPAY | END 2025-02-09 23:59 | disposition home or self-care (01) | LOC: SPT 06:30 | PROVIDERS: Visit Provider Clinical Nurse Specialist Adult Health | DX: M25.569 Pain in unspecified knee (principal) | CPT/HCPCS: 97110; 97161 ==

== ENCOUNTER → 2025-04-18 09:19 | Outpatient (BNVA) | payer MEDICARE, BC, OTHER, SELFPAY | PROVIDERS: Visit Provider Family Medicine Adult Medicine | DX: S80.02XA Contusion of left knee, initial encounter (principal); W19.XXXA Unspecified fall, initial encounter; M17.12 Unilateral primary osteoarthritis, left knee; I70.90 Unspecified atherosclerosis | CPT/HCPCS: 73562 ==

== ENCOUNTER → 2025-05-23 09:32 | Outpatient (BNVA) | payer MEDICARE, BC, OTHER, SELFPAY | PROVIDERS: PCP Family Medicine; Visit Provider Internal Medicine Cardiovascular Disease | DX: I10 Essential (primary) hypertension (principal); Z98.890 Other specified postprocedural states; Z79.82 Long term (current) use of aspirin; Z86.718 Personal history of other venous thrombosis and embolism; Z86.73 Personal history of transient ischemic attack (TIA), and cerebral infarction without residual deficits | CPT/HCPCS: 99214 ==